=== PATIENT | female | born 1960 | race Two or more races ===

== ENCOUNTER 2024-07-02 18:27 | Inpatient (IN) | payer MEDICARE, MEDICAID, SELFPAY ==
--- NOTE | 2024-07-02 19:08 | EDNOTE_ITS ---
Altered Mental Status RME/HPI General Chief Complaint: Weakness Stated Complaint: WEAKNESS Time Seen by Provider: 07/02/24 19:08 Arrival date/time: 07/02/24 18:27 RME / HPI RME / HPI narrative: This section includes all my notes and documentations, including HPI, PE, and ED course. Kevon Ferrera MD HPI: 64 y/o female with Hx of Hypertension, Rheumatoid Arthritis, and Diabetes Mellitus Type 2 presents to ED [facility] from home c/o altered mental status. Per EMS, patient was found outside her apartment complex in [place] by neighbors who called for help due to no responsiveness. EMS reports blood sugar of 442 mg/dL and fever or 102F. Can't obtain history from the patient due to AMS. ROS: Can't obtain from the patient due to AMS. Physical Exam: General: No responsiveness. Eyes: EOMI. PERRL. ENT: No signs of head trauma. Neck: Supple. No tenderness. Heart: RRR. Lungs: No respiratory distress. Good air movement. No rhonchi, wheezing, rales. Chest: No tenderness. Abdomen: Soft and nontender. Back: No tenderness. Legs: No clubbing, cyanosis, edema. Skin: Warm and dry. Neuro: Difficult assessment due to AMS. I reviewed EMS notes. I reviewed all diagnostic test results. My interpretation of the EKG is: Sinus rhythm (71 bpm) with nonspecific ST-T changes. My interpretation of the chest x-ray is NAD. My review of the cervical spine CT report is no gross cervical fracture. My review of the chest/abdomen CT report is NAD. My review of the head/brain CT report is negative for acute hemorrhage, mass effect or midline shift. Blood tests and urine tests remarkable for hypokalemia and hypomagnesemia and UTI. At this point, diagnoses include AMS, UTI, fever, hypokalemia, and hypomagnesemia. Treatment here included Zofran, Toradol, Insulin, IV fluid, Rocephin, Magnesium Sulfate, Potassium Chloride. No significant improvement noted. I discussed the case with our hospitalist. About the presentation and exam and diagnostics and treatments here. And need of further care in the hospital. Will accept the patient. Kevon Ferrera MD Related Data Home Medications ?Medication ?Instructions ?Recorded ?Confirmed UNKNOWN MEDS ##0 12/10/12 Allergies Allergy/AdvReac Type Severity Reaction Status Date / Time NKA* Allergy Uncoded 12/10/12 15:19 Review of Systems Review of Systems ROS Unobtainable: unobtainable due to mental status Past Medical History Past Medical History CARDIAC: Positive Cardiac Disorders and Hypertension MUSCULOSKELETAL: Positive Rheumatoid Arthritis ENDOCRINE: Positive Endocrine Disorders and Diabetes Mellitus Type 2 Social History SMOKING STATUS: Current every day smoker ED Exam Narrative Physical exam: Refer to HPI above Course Course Course Narrative: CXR is ordered for determining the etiology of shortness of breath. Quality Measures none Orders Category Date Time Status Admit to Inpatient Status Routine Admission 07/02/24 23:12 Active Bedside COVID-19 Antigen Test NOW Care 07/02/24 19:09 Active Bedside Influenza A&B Antigen Test NOW Care 07/02/24 19:09 Completed COVID-19 Screening Questionnaire NOW Care 07/02/24 23:15 Active Decision to Admit X1 Care 07/02/24 23:15 Active EKG (ED ONLY) *Do not use* NOW Care 07/02/24 19:11 Completed Saline [Insert IV] NOW Care 07/02/24 19:09 Active Straight [In and Out Catheter] X1 Care 07/02/24 19:[address] cervical spine wo con Stat Exams 07/02/24 19:[address] chest abdomen pelvis wo Stat Exams 07/02/24 19:[address] head/brain wo con Stat Exams 07/02/24 19:11 Completed EKG (ED Only) Stat Exams 07/02/24 19:11 Draft XR chest 1V portable Stat Exams 07/02/24 19:11 Completed ABG [Arterial Blood Gas] Stat Lab 07/02/24 22:21 Completed Acetaminophen Stat Lab 07/02/24 20:46 Completed Alcohol, Blood Medical Stat Lab 07/02/24 20:46 Completed Ammonia Stat Lab 07/02/24 19:50 Completed Amylase Stat Lab 07/02/24 20:46 Completed BNP [B-Type Natriuretic Peptide] Stat Lab 07/02/24 22:48 Received Beta Hydroxybutyrate Stat Lab 07/02/24 20:46 Completed Bilirubin,Direct Stat Lab 07/02/24 20:46 Completed Blood Culture (Lab) Stat Lab 07/02/24 22:48 Received CBC Stat Lab 07/02/24 19:50 Completed CK [Creatine Kinase] Stat Lab 07/02/24 20:46 Completed CMP [Comprehensive Metabolic Panel] Stat Lab 07/02/24 20:46 Completed CRP [C-Reactive Protein] Stat Lab 07/02/24 20:46 Completed Drug Screen,Urine Stat Lab 07/02/24 19:50 Completed ESR [Sed Rate (ESR)] Stat Lab 07/02/24 19:50 Completed Free T4 (Free Thyroxine) Stat Lab 07/02/24 20:46 Completed Hemoglobin A1C [Glycohemoglobin w (eAG)] Stat Lab 07/02/24 19:50 Completed Lactate (Lactic Acid) Stat Lab 07/02/24 19:50 Completed Lipase Stat Lab 07/02/24 20:46 Completed Magnesium Stat Lab 07/02/24 20:46 Completed PT [Prothrombin Time with INR] Stat Lab 07/02/24 20:46 Completed PTT [Partial Thromboplastin Time] Stat Lab 07/02/24 20:46 Completed Procalcitonin Stat Lab 07/02/24 20:46 Completed TSH [Thyroid Stimulating Hormone] Stat Lab 07/02/24 20:46 Completed Troponin I Stat Lab 07/02/24 20:46 Completed UA, C/S IF [Urinalysis, C/S if Indicated] Stat Lab 07/02/24 19:50 Completed Urine Culture Stat Lab 07/02/24 19:50 Received Acetaminophen Ivpb [Ofirmev Inj] Med 07/02/24 19:09 Discontinued 1,000 mg in 100 ml IV X1 Insulin Regular Med 07/02/24 19:09 Discontinued 10 unit IV X1 ONE Insulin Regular Med 07/02/24 19:57 Discontinued 5 unit IV X1 ONE KCL 10% Liq UDC 15 ML Med 07/02/24 22:22 Discontinued 40 meq PO X1 ONE Ketorolac Inj [Toradol Inj] Med 07/02/24 19:09 Discontinued 30 mg IVP X1 ONE Magnesium Sulfate 2 GM Ivpb [Magnesium Sulfate Ivpb] Med 07/02/24 22:22 Active 2 gm in 50 ml IV X1 Ondansetron Inj [Zofran Inj] Med 07/02/24 19:09 Discontinued 4 mg IV X1 ONE POTASSIUM CHL 10 mEq IVPB [Kcl Ivpb] Med 07/02/24 22:23 Active 10 meq in 100 ml IV X1 Sodium Chloride 0.9% 1000 ml [Ns] 1,000 ml Med 07/02/24 23:15 Ordered IV 100 mls/hr Sodium Chloride 0.9% 1000 ml [Ns] 1,000 ml Med 07/02/24 19:09 Discontinued IV 999 mls/hr Sodium Chloride 0.9% 1000 ml [Ns] 1,000 ml Med 07/02/24 22:58 Active IV 999 mls/hr cefTRIAXone/D5w 1gm IV premix [Rocephin/D5w 1gm IV Med 07/03/24 09:00 Ordered premix] 1 gm in 50 ml IV QDAY cefTRIAXone/D5w 1gm IV premix [Rocephin/D5w 1gm IV Med 07/02/24 19:14 Discontinued premix] 1 gm in 50 ml IV X1 Vital Signs Vital signs: Vital Signs Temperature 99.6 F 07/02/24 19:35 Pulse Rate 78 07/02/24 19:35 Respiratory Rate 20 07/02/24 19:35 Blood Pressure 157/87 H 07/02/24 19:35 Pulse Oximetry (%) 97 07/02/24 19:35 Oxygen Delivery Method Room Air 07/02/24 19:35 Altered Mental Status MDM Narrative MDM Narrative:: Scribe Attestation: IMaritza, am scribing for and in the presence of Dr. Ferrera. Provider Notation: Although this document has been carefully reviewed, there may still be some phonetic and other typographical errors.? These errors are purely grammatical due to imperfections in the software program and should not be construed in any way to? compromise the substance of the patient's medical care during this visit. 64 y/o female with Hx of Hypertension, Rheumatoid Arthritis, and Diabetes Mellitus Type 2 presents to ED [facility] from home c/o altered mental status and lethargy. Patient data External records reviewed:: [facility] previous records (No prior ED records available for review.) and EMS form Clinical information provided by:: EMS Social determinants that could affect healthcare access:: none Patient has the following chronic illnesses:: Hypertension, Rheumatoid Arthritis, Diabetes Mellitus Type 2 How is presenting disease/condition affected by chronic disease/condition?: exacerbated by Evaluation data The following diagnostics were reviewed and interpreted by me:: lab results, radiology exam(s) and EKG tracing(s) (My interpretation of the EKG is: Sinus rhythm (71 bpm) with nonspecific ST-T changes. Kevon Ferrera MD) Lab and/or radiology exams considered but not ordered:: None Interpretation Summary: I reviewed all diagnostic test results. My interpretation of the EKG is: Sinus rhythm (71 bpm) with nonspecific ST-T changes. My interpretation of the chest x-ray is NAD. My review of the cervical spine CT report is no gross cervical fracture. My review of the chest/abdomen CT report is NAD. My review of the head/brain CT report is negative for acute hemorrhage, mass effect or midline shift. Blood tests and urine tests remarkable for hypokalemia and hypomagnesemia and UTI. Medications / Prescriptions Medications or Prescriptions considered but not ordered:: None Medication administrations:: Medication Administration History Magnesium Sulfate (Magnesium Sulfate Ivpb) 2 gm in 50 mls @ 25 mls/hr IV X1 ONE Stop: 07/03/24 00:21 Last Admin: 07/02/24 22:37 Dose: 25 mls/hr Documented By: CCT Potassium Chloride (Kcl Ivpb) 10 meq in 100 mls @ 100 mls/hr IV X1 ONE Stop: 07/02/24 23:22 Last Admin: 07/02/24 22:38 Dose: 100 mls/hr Documented By: CCT Sodium Chloride (Ns) 1,000 mls @ 999 mls/hr IV .Q1H1M ONE Stop: 07/02/24 23:58 Ceftriaxone Sodium/Dextrose (Rocephin/D5w 1gm Iv Premix) 1 gm in 50 mls @ 100 mls/hr IV QDAY ALBERTO Stop: 07/10/24 08:59 Sodium Chloride (Ns) 1,000 mls @ 100 mls/hr IV .Q10H ALBERTO Stop: 08/01/24 23:14 Discontinued Medications Acetaminophen (Ofirmev Inj) 1,000 mg in 100 mls @ 250 mls/hr IV X1 ONE Stop: 07/02/24 19:32 Last Infusion: 07/02/24 20:30 Dose: Infused Documented By: Admin: 07/02/24 20:07 Dose: 250 mls/hr Documented By: CCT Sodium Chloride (Ns) 1,000 mls @ 999 mls/hr IV .Q1H1M ONE Stop: 07/02/24 20:09 Last Infusion: 07/02/24 21:32 Dose: Infused Documented By: Admin: 07/02/24 20:08 Dose: 999 mls/hr Documented By: CCT Ceftriaxone Sodium/Dextrose (Rocephin/D5w 1gm Iv Premix) 1 gm in 50 mls @ 100 mls/hr IV X1 ONE Stop: 07/02/24 19:43 Last Infusion: 07/02/24 20:40 Dose: Infused Documented By: Admin: 07/02/24 20:06 Dose: 100 mls/hr Documented By: CCT Insulin Human Regular (Insulin Hum Regular 1 Unit/0.01 Ml (Per Unit)) 10 unit IV X1 ONE Stop: 07/02/24 19:10 Last Admin: 07/02/24 20:53 Dose: Not Given Documented By: CCT Non-Admin Reason: Cancelled by Provider Insulin Human Regular (Insulin Hum Regular 1 Unit/0.01 Ml (Per Unit)) 5 unit IV X1 ONE Stop: 07/02/24 19:58 Last Admin: 07/02/24 20:09 Dose: 5 unit Documented By: CCT Co-signed By: [facility] Ketorolac Tromethamine (Ketorolac Inj 30 Mg/Ml Vial) 30 mg IVP X1 ONE Stop: 07/02/24 19:10 Last Admin: 07/02/24 20:07 Dose: 30 mg Documented By: CCT Ondansetron HCl (Ondansetron Inj 2 Mg/Ml Inj 2 Ml) 4 mg IV X1 ONE; Protocol Stop: 07/02/24 19:10 Last Admin: 07/02/24 20:07 Dose: 4 mg Documented By: CCT Potassium Chloride (Potassium Chloride 10% 20 Meq/15 Ml Udc) 40 meq PO X1 ONE Stop: 07/02/24 22:23 Last Admin: 07/02/24 22:37 Dose: 40 meq Documented By: CCT Treatment from ca here included Zofran, Toradol, Insulin, IV fluid, Rocephin, Magnesium Sulfate, Potassium Chloride. Consultations Consultation(s) initiated? (list below): Yes Consultation #1 (Physician, Specialty, Details): I discussed the case with our hospitalist. About the presentation and exam and diagnostics and treatments here. And need of further care in the hospital. Will accept the patient. Time: 23:00 Diagnosis Differential diagnosis altered mental status: alcoholic intoxication, altered mental status, delirium, dementia, hypoglycemia, hyponatremia, subarachnoid hemorrhage, sepsis and other (UTI vs Sepsis vs Pyelonephritis vs Cystitis) Most likely diagnosis given after review of the tests above:: AMS, UTI, fever, hypokalemia, and hypomagnesemia Admission Indicated Admission indicated?: indicated Explain why admission is indicated or not indicated:: AMS, UTI, fever, hypokalemia, and hypomagnesemia Admission Request Was there a request for admission?: No Disposition Plan Disposition Plan: Admit Discharge Plan Plan Patient Disposition: Admit Acute Care w/in Hospital Prescriptions/Referrals Prescriptions/Med Rec: No Action UNKNOWN MEDS Qty: 0 Referrals: No Primary/Family,Physician [Primary Care Provider] - In 1 week Problem List Clinical Impression: AMS (altered mental status), UTI (urinary tract infection), Fever, Hypokalemia, Hypomagnesemia, Methamphetamine use, Marijuana use Patient/Caregiver Discharge Instructions Print Language: Lithuanian Stand Alone Forms: Emi Award Info., Patient Portal Info Letter
--- NOTE | 2024-07-02 19:11 | XR_ITS ---
Examination: CT chest, without intravenous contrast. CT abdomen, without intravenous contrast. CT pelvis, without intravenous contrast. 2-D sagittal and coronal reconstructions. 3-D reconstructions. Date and time of exam:July 02, 2024 2117 hours INDICATIONS: Patient fell today with injury to the chest and abdomen, chest pain and abdomen pain CTDI vol (mgy) 6.1 DLP (MGycm)380 Technique: Multiple CT images, 3.0 mm slice thickness, obtained chest, abdomen, pelvis, with the high-resolution 64 slice scanner.. Sagittal and coronal 2-D reconstructions are obtained. 3-D reconstructions Low dose protocols were performed. One or more of the following dose reduction techniques were used; automated exposure control, adjustment of the mA and/or KV according to patient size, use of iterative reconstruction technique. Findings: Thoracic aorta pulmonary arteries appear intact on this noncontrast study No hemopericardium No pneumothorax pulmonary contusion or hemothorax The manubria of the body of the sternum intact Chronic compressions T12 T7 No acute thoracic fracture Ribs appear intact No liver splenic or renal laceration Gallstones Abdominal aorta is intact No free blood in the abdomen Negative for pneumoperitoneum Atrophic uterus Urinary bladder intact Hips the bones of the pelvis lumbar vertebral bodies intact IMPRESSION: Thoracic aorta pulmonary arteries intact No hemopericardium, pneumothorax pulmonary contusion or hemothorax No abdominal parenchymal laceration No free blood in the abdomen or pelvis Abdominal aorta intact No acute fractures
--- NOTE | 2024-07-02 19:11 | EKG_ITS ---
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
--- NOTE | 2024-07-02 19:11 | XR_ITS ---
Examination: CT brain head without contrast. 2-D sagittal coronal reconstructions Date and time of exam:July 02, 2024 2113 hours INDICATIONS: Patient fell today with injury to the head, head pain and altered mental status CTDI: vol (mGy):45.9 DLP: (mGycm):9.5 Technique: Multiple CT axial sections of the brain have been obtained, 5 mm slice thickness. Contrast has not been administered. 2-D sagittal, coronal reconstructions have been obtained Low dose protocols were performed. One or more of the following dose reduction techniques were used; automated exposure control, adjustment of the mA and/or KV according to patient size, use of iterative reconstruction technique. Findings: No significant ventricular enlargement. Intra-axial or extra-axial hemorrhage density is not seen. No mass effect or midline shift Basal cisterns are not remarkable. Fourth ventricle is midline. Cranial vault intact. Impression: Negative for acute hemorrhage, mass effect or midline shift
--- NOTE | 2024-07-02 19:11 | XR_ITS ---
Examination: CT cervical spine without contrast 2-D sagittal reconstructions 2-D coronal reconstructions 3-D reconstructions. Exam date and time:July 02, 2024 2113 hours INDICATIONS: Patient fell today with injury to the neck, neck pain CTDI:vol (mGy) 6.92 DLP: (mGycm) 147 Technique: Multiple 2 mm axial sections of the cervical spine have been obtained. The coronal and sagittal reconstructions have been obtained. 3-D reconstructions have been obtained. Low dose protocols were performed. One or more of the following dose reduction techniques were used; automated exposure control, adjustment of the mA and/or KV according to patient size, use of iterative reconstruction technique. Findings: Study is significantly limited by continual patient motion No gross cervical fracture Adequate alignment cervical vertebral bodies IMPRESSION: Study is significantly limited by continual patient motion No gross cervical fracture
--- NOTE | 2024-07-02 19:11 | XR_ITS ---
Examination: AP chest single view TECHNIQUE: Portable upright AP chest single view Standing time: July 02, 2024 1936 hours INDICATION: Shortness of breath today. FINDINGS: Normal heart size Lungs are clear. The osseous structures are intact IMPRESSION: No active disease
[2024-07-02 19:35] VITALS: BP 157/87; PULSE 70; PULSE 78; RESP 20; TEMP 37.6; O2SAT 96; O2SAT 97
[2024-07-02] MEDS: cefTRIAXone/D5w 1gm IV premix 1 GM/50 ML BAG IV (20:06)
[2024-07-02 20:07] VITALS: TEMP 37.6
[2024-07-02 20:07] LABS: Lactate (Lactic Acid) 1.5 mMol/L (0.4-2.0)
[2024-07-02] MEDS: ACETAMINOPHEN IVPB 1,000 MG/100 ML VIAL 250 MG IV (20:07)
[2024-07-02] MEDS: KETOROLAC INJ 30 MG/ML VIAL IVP (20:07)
[2024-07-02] MEDS: ONDANSETRON INJ 2 MG/ML INJ 2 ML 4 MG IV (20:07)
[2024-07-02 20:08] LABS: Basophils # (Auto) 0.1 Thou/mm3 (0.0-0.2); Basophils % (Auto) 1 % (0-2.5); Eosinophils # (Auto) 0.1 Thou/mm3 (0.0-0.5); Eosinophils % (Auto) 1 % (0-10); Hematocrit 33.8 % (36.0-46.0); Hemoglobin 12.2 g/dL (12.0-16.0); Immature Granulocytes % (Auto) 1 % (0-0); Lymphocytes # (Auto) 2.4 Thou/mm3 (1.0-4.8); Lymphocytes % (Auto) 21 % (10-50); Mean Corpuscular HGB Conc 36.1 g/dl (31.0-37.0); Mean Corpuscular Hemoglobin 31.9 pg (25.0-35.0); Mean Corpuscular Volume 89 fL (80-100); Monocytes # (Auto) 0.7 Thou/mm3 (0.0-0.8); Monocytes % (Auto) 6 % (0-12); Neutrophils # (Auto) 8.3 Thou/mm3 (1.8-7.7); Neutrophils % (Auto) 71 % (37-80); Nucleated Red Blood Cell % 0 /100 WBC (0); Platelet Count 288 Thou/mm3 (140-440); RDW Standard Deviation 42.9 fL (36.4-46.3); Red Blood Count 3.82 Miln/mm3 (4.00-5.20); White Blood Count 11.8 Thou/mm3 (3.6-11.0)
[2024-07-02] MEDS: SODIUM CHLORIDE 0.9% 1000 ML 1,000 ML 999 ML IV ×2 (20:08→23:58)
[2024-07-02 20:09] LABS: Collection Type, Urine Clean Catch
[2024-07-02] MEDS: INSULIN HUM REGULAR 1 UNIT/0.01 ML (PER UNIT) 5 UNIT IV (20:09)
[2024-07-02 20:18] LABS: Bacteria,Urine 1+; Bilirubin,Urine Negative (Negative); Blood,Urine 1+ (Negative); Clarity,Urine Turbid (Clear/Hazy); Color,Urine Yellow (Lt Yel-Yel); Glucose, Urine 4+ (Negative); Ketones,Urine Negative (Negative); Leukocyte Esterase,Urine Positive (Negative); Nitrite,Urine Negative (Negative); Protein,Urine 1+ (Neg - Trace); RBC,Urine 22 /hpf (0-3); Specific Gravity,Urine 1.032 (1.001-1.035); Squamous Epithelial Cell,Urine 9 /hpf (0-5); Urobilinogen,Urine Negative mg/dL (0.0-1.0); WBC,Urine 86 /hpf (0-5)
[2024-07-02 20:28] LABS: Ammonia 22 uMol/L (11-32)
[2024-07-02 20:29] LABS: Culture Indicated,Urine Yes
[2024-07-02 20:30] LABS: Sed Rate (ESR) 99 mm/hr (0-30)
[2024-07-02 21:07] VITALS: TEMP 36.4
[2024-07-02 21:36] LABS: Beta Hydroxybutyrate 0.3 mmol/L (<0.6)
[2024-07-02 21:40] VITALS: BP 108/66; PULSE 70; RESP 17; TEMP 36.4; O2SAT 96
[2024-07-02 21:55] LABS: INR 1.2 (0.9-1.3); Partial Thromboplastin Time 27.5 Seconds (22.0-36.0); Prothrombin Time 12.6 Seconds (9.0-12.2)
[2024-07-02 22:01] LABS: Amphetamine/Methamp Scrn,U Positive (Negative); Barbiturate Screen,Urine Negative (Negative); Benzodiazepines Screen,Urine Negative (Negative); Benzoylecgonine Screen, Ur Negative (Negative); Fentanyl Screen,Urine Negative (Negative); Opiate Screen,Urine Negative (Negative); THC Screen,Urine Positive (Negative)
[2024-07-02 22:13] LABS: Glucose Estimated Average 355 mg/dL (80-131); Hemoglobin A1C > 14.0 % Hgb (4.8-6.0)
[2024-07-02 22:13] LABS: Acetaminophen 32.5 mcg/mL (10.0-20.0); Alanine Aminotransferase 15 U/L (10-49); Albumin, Serum 2.5 gm/dL (3.4-4.8); Albumin/Globulin Ratio 0.7 (1.2-2.2); Alcohol, Blood Medical < 3.0 mg/dL (0-10.0); Alkaline Phosphatase 197 U/L (46-116); Amylase 50 U/L (30-118); Anion Gap 5 (7-16); Aspartate Amino Transferase 29 U/L (0-34); BUN/Creatinine Ratio 19 Ratio (12-20); Bilirubin,Direct 0.2 mg/dL (0.0-0.3); Bilirubin,Total 0.4 mg/dL (0.3-1.2); Blood Urea Nitrogen 19 mg/dL (9-23); C-Reactive Protein 1.2 mg/dL (0.0-0.9); Calcium 7.2 mg/dL (8.3-10.6); Calcium (Corrected) 8.4 mg/dL (8.5-10.1); Carbon Dioxide 27.5 mMol/L (20.0-31.0); Chloride 103 mMol/L (98-107); Creatine Kinase 76 U/L (34-171); Free T4 (Free Thyroxine) 0.79 ng/dL (0.89-1.76); Globulin 3.6 gm/dL (2.3-3.5); Glucose 323 mg/dL (74-106); Lipase 23 U/L (12-53); Magnesium 1.4 mg/dL (1.6-2.6); Osmolality,Calculated 284 (275-295); Potassium 3.2 mMol/L (3.4-5.1); Sodium 135 mMol/L (136-145); Thyroid Stimulating Hormone 5.14 uIU/mL (0.55-4.78); Total Protein 6.1 gm/dL (5.7-8.2); Troponin I < 0.020 ng/mL (0.0-0.045); eGFR > 60 See Note
[2024-07-02 22:22] VITALS: BP 101/63; PULSE 62; RESP 17; TEMP 36.3; O2SAT 96
[2024-07-02 22:26] LABS: Base Excess 4 (-3-3); HCO3 30 mEq/L (20-26); Inspired Oxygen, FIO2 21 %; O2 Saturation 97 % (91-98); PCO2 47 mmHg (32.0-48.0); PO2 82 mmHg (83-108); pH, Arterial 7.41 (7.35-7.45)
[2024-07-02 22:28] LABS: Allen Test Performed/OK; Puncture Site Right Radial
[2024-07-02] MEDS: POTASSIUM CHLORIDE 10% 20 MEQ/15 ML UDC 40 MEQ PO (22:37)
[2024-07-02] MEDS: Magnesium Sulfate 2 GM Ivpb 2 GM/50 ML BAG IV (22:37)
[2024-07-02] MEDS: POTASSIUM CHL 10 mEq IVPB 10 MEQ/100 ML BAG 100 MEQ IV (22:38)
[2024-07-02 23:26] LABS: B-Type Natriuretic Peptide 64 pg/mL (0-100)
--- NOTE | 2024-07-02 23:33 | PD.EVENT ---
Documentation for date of: 07/02/24 Event Note Event Note: A 64-year-old female presented to the ER with the chief complaint of altered mental status. The patient described experiencing weakness earlier in the afternoon while walking home near her apartment. She attributed it to heat exposure and subsequently lost consciousness. She was found unresponsive outside her apartment complex by neighbors, who called emergency services. She also c/o cough (persistent for 1?2 weeks, partially responsive to [id number] medication), mild dysuria (burning with urination), and generalized weakness. The patient denied chest pain, shortness of breath, fever, or recent trauma. EMS reported a fever of 102?F and a blood glucose of 442 mg/dL at the scene. The patient has a history of DM, hypertension, arthritis, and hepatitis C. She reports taking seven medications but could only recall Gabapentin and Lisinopril. Social history includes smoking (half pack per day), no alcohol use, and recreational marijuana use. She is independent with ADLs, performs her own shopping and cooking, and walks as her primary means of transportation. She lives alone and receives disability support. No prior surgeries were reported. In the ER, vital signs were recorded as temp 99.6?F, HR 78 bpm, RR 20, and BP 157/87 mmHg. Labs revealed WBC 11.8, Hb 12.2, Plt 288, Na 135, K 3.2, BUN 19, Cr 1.0, glucose 323, Mg 1.4, CRP 1.2, procalcitonin 0.6, TSH 5.14, and free T4 0.79. UA was turbid with RBC 22 and WBC 86. CXR showed no active disease. CT head was negative for acute hemorrhage, mass effect, or midline shift. CT cervical spine showed no gross cervical fracture. Due to her living situation and electrolyte abnormalities, the patient was admitted for further evaluation and treatment. #Acute Encephalopathy Assessment: Altered mental status, found unresponsive, recent heat exposure, hyperglycemia (glucose 442 at scene), mild leukocytosis (WBC 11.8), normal CT head Plan: - Maintain hydration with IV fluids - Correct electrolyte abnormalities (K 3.2, Mg 1.4) - Treat UTI - Trend glucose and monitor for resolution of symptoms as metabolic parameters normalize #Urinary Tract Infection Assessment: Dysuria, turbid urine, UA with WBC 86, RBC 22, afebrile on admission but febrile in field (102?F) Plan: - Initiate empiric antibiotics (ceftriaxone), adjust per culture results - Send urine culture and sensitivity - Ensure adequate hydration #Diabetes Mellitus Assessment: Glucose 442 at scene, 323 on admission, history of DM Plan: - Initiate insulin sliding scale - Monitor FS glucose before meals and bedtime - Goal: preprandial glucose <140 mg/dL, random <180 mg/dL #Electrolyte Abnormalities Assessment: Hypokalemia (K 3.2), hypomagnesemia (Mg 1.4), likely due to poor intake/dehydration Plan: - Replete potassium and magnesium per protocol - Monitor BMP and Mg AM #Chronic Hepatitis C Assessment: History of hepatitis C, no acute hepatic decompensation noted Plan: - Outpatient follow-up #Hypertension Assessment: Known HTN, BP on admission 157/87 mmHg Plan: - Continue home meds #Tobacco Use Disorder Assessment: Active smoker (? pack/day) Plan: - Nicotine replacement therapy - Outpatient follow-up for cessation support
--- NOTE | 2024-07-02 23:59 | PD.RESHP ---
Documentation for date of: 07/02/24 HPI History of Present Illness Chief complaint: I passed out History of present illness: Nya Valle is 63 yr female with PMH of insulin-dependent type 2 diabetes, hypertension, rheumatoid arthritis who presented to ED via ambulance after neighbors found patient down. EMS arrived on scene and upon arrival patient blood sugar was 400, temperature 102. Now at bedside, patient is alert and oriented x 3. States that she was walking outside her apartment located in [place] when she started feeling faint and passed out. Patient lives alone with her daughter coming to visit and help occasionally. 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 Has has no issues with ADLs. Patient is also endorsing dysuria since past 1 week along with weakness. Denies any fevers, shortness of breath, chest pain. No diarrhea. States that she checks her blood sugars at home which range in 200?300s. Has poor diet with high carb intake and drinks 4 cans of Sprite every other day. In ED, BP 157/87, heart rate 78, RR 20, afebrile temp 99.6. Glucose 422 on admission, leukocytosis 11.8, hypokalemia 3.2, sodium 135, BUN 19, creatinine 1.0 , Hb 12.2, Plt 288, Mg 1.4, CRP 1.2, procalcitonin 0.6, TSH 5.14, and free T4 0.79. UA was positive for LE with WBC 86. CXR showed no active disease. CT head was negative for acute hemorrhage, mass effect, or midline shift. CT cervical spine showed no gross cervical fracture. Patient will be admitted for management of acute encephalopathy, sepsis secondary to UTI. PMH: As noted above PSH: FamHx: parents . Mother had history of HTN and diabetes. Social: Patient lives alone in an apartment in [place], unemployed. Daughter comes throughout the week to help. Patient denies any drinking. Endorses marijuana use, methamphetamine use with last use yesterday. 10-year smoking history with half a pack per day. Meds: Lisinopril, gabapentin, insulin glargine 20 units twice daily Review of Systems Review of Systems Systems Reviewed: All systems reviewed, normal except as documented Exam Vital Signs Temp Pulse Resp BP Pulse Ox O2 Del Method 97.3 F 62 17 101/63 96 Room Air 07/02/24 22:22 07/02/24 22:22 07/02/24 22:22 07/02/24 22:22 07/02/24 22:22 07/02/24 22:22 Narrative Exam General: Elderly female, somnolent but arousable, no acute distress, cooperative HEENT: NCAT, No JVD noted. Mucosa dry, poor oral hygiene. Pupils are equal and reactive to light bilaterally Cardiovascular: Normal S1 and S2. Regular rate and rhythm. Respiratory: Lungs are clear to auscultation bilaterally. No wheezing or crackles heard. Abdomen: Soft, nontender, not distended, normal bowel sounds. Skin: Warm to touch, dry, no rashes noted Musculoskeletal: No gross injuries. Able to move all 4 extremities. No pitting edema, +1 pedal pulses b/l, onychomycosis, Neuro: Alert and oriented x3. No focal neuro deficits. Psych: Normal affect and mood Results: Labs 07/02/24 19:50 07/02/24 20:46 Labs: Short CBC 07/02/24 Range/Units 19:50 WBC 11.8 H (3.6-11.0) Thou/mm3 Hgb 12.2 (12.0-16.0) g/dL Hct 33.8 L (36.0-46.0) % Plt Count 288 (140-440) Thou/mm3 BMP 07/02/24 20:46 Sodium 135 L Potassium 3.2 L Chloride 103 Carbon Dioxide 27.5 BUN 19 Creatinine 1.0 Glucose 323 H Calcium 7.2 L Cardiac Enzymes 07/02/24 Range/Units 20:46 Total Creatine Kinase 76 (34-171) U/L Troponin I < 0.020 (0.0-0.045) ng/mL Liver Function 07/02/24 Range/Units 20:46 Total Bilirubin 0.4 (0.3-1.2) mg/dL Direct Bilirubin 0.2 (0.0-0.3) mg/dL AST 29 (0-34) U/L ALT 15 (10-49) U/L Alkaline Phosphatase 197 H (46-116) U/L Albumin 2.5 L (3.4-4.8) gm/dL Urine 07/02/24 Range/Units 19:50 Urine Color Yellow (Lt Yel-Yel) Urine Clarity Turbid A (Clear/Hazy) Urine pH 6.0 (5.0-7.0) Ur Specific Bevier 1.032 (1.001-1.035) Urine Protein 1+ A (Neg - Trace) Urine Glucose (UA) 4+ A (Negative) ABG Interpretation ABG results: 07/02/24 22:21 ABG pH 7.41 ABG pCO2 47 ABG pO2 82 L ABG HCO3 30 H ABG O2 Saturation 97 ABG Base Excess 4 H Quality Measures Quality Measures none Advance care planning discussed with:: patient Medications Home Medications and Allergies Home Medications ?Medication ?Instructions ?Recorded ?Confirmed ?Type UNKNOWN MEDS ##0 12/10/12 History baclofen 10 mg tablet 10 mg PO QDAY 07/03/24 07/03/24 History cetirizine 10 mg tablet 10 mg PO QDAY 07/03/24 07/03/24 History gabapentin 600 mg tablet 600 mg PO BID 07/03/24 07/03/24 History lisinopril 5 mg tablet 5 mg PO QDAY 07/03/24 07/03/24 History omeprazole 20 mg capsule,delayed 20 mg PO QDAY 07/03/24 07/03/24 History release Allergies Allergy/AdvReac Type Severity Reaction Status Date / Time NKA* Allergy Uncoded 12/10/12 15:19 Visit Medications Acetaminophen (Acetaminophen 325 Mg Tablet) 650 mg PO Q6H PRN PRN Reason: Fever >100.3 or pain Stop: 08/01/24 23:54 Dextrose (Dextrose 50%-Water Inj 50 Ml Syringe) 25 ml IV Q15MIN PRN PRN Reason: BG 50-70 responsive npo pt Stop: 08/01/24 23:57 Dextrose (Dextrose 50%-Water Inj 50 Ml Syringe) 50 ml IV Q15MIN PRN PRN Reason: BG <50 OR BG <70 & pt unresponsive Stop: 08/01/24 23:57 Enoxaparin Sodium (Enoxaparin Sod Inj 40 Mg/0.4 Ml Syringe) 40 mg SC QDAY ALBERTO Stop: 07/17/24 08:59 Glucagon (Glucagon Inj 1 Mg Vial) 1 mg IM Q15MIN PRN PRN Reason: BG <70, and no IV access Magnesium Sulfate (Magnesium Sulfate Ivpb) 2 gm in 50 mls @ 25 mls/hr IV X1 ONE Stop: 07/03/24 00:21 Last Admin: 07/02/24 22:37 Dose: 25 mls/hr Ceftriaxone Sodium/Dextrose (Rocephin/D5w 1gm Iv Premix) 1 gm in 50 mls @ 100 mls/hr IV QDAY [facility] Stop: 07/10/24 08:59 Sodium Chloride (Ns) 1,000 mls @ 100 mls/hr IV .Q10H ALBERTO Stop: 08/01/24 23:14 Insulin Human Lispro (Insulin Lispro (Admelog) 1 Unit/0.01 Ml Unit) 0 unit SC AC ALBERTO; Protocol Stop: 08/02/24 07:29 Ondansetron HCl (Ondansetron Inj 2 Mg/Ml Inj 2 Ml) 4 mg IV Q6H PRN; Protocol PRN Reason: NAUSEA OR VOMITING Stop: 08/01/24 23:54 Sennosides (Senna Tablet) 1 tab PO QDAY PRN; Protocol PRN Reason: constipation Stop: 08/01/24 23:54 Discontinued Medications Acetaminophen (Ofirmev Inj) 1,000 mg in 100 mls @ 250 mls/hr IV X1 ONE Stop: 07/02/24 19:32 Last Infusion: 07/02/24 20:30 Dose: Infused Sodium Chloride (Ns) 1,000 mls @ 999 mls/hr IV .Q1H1M ONE Stop: 07/02/24 20:09 Last Infusion: 07/02/24 21:32 Dose: Infused Ceftriaxone Sodium/Dextrose (Rocephin/D5w 1gm Iv Premix) 1 gm in 50 mls @ 100 mls/hr IV X1 ONE Stop: 07/02/24 19:43 Last Infusion: 07/02/24 20:40 Dose: Infused Potassium Chloride (Kcl Ivpb) 10 meq in 100 mls @ 100 mls/hr IV X1 ONE Stop: 07/02/24 23:22 Last Infusion: 07/02/24 23:45 Dose: Infused Sodium Chloride (Ns) 1,000 mls @ 999 mls/hr IV .Q1H1M ONE Stop: 07/02/24 23:58 Last Admin: 07/02/24 23:58 Dose: 999 mls/hr Insulin Human Regular (Insulin Hum Regular 1 Unit/0.01 Ml (Per Unit)) 10 unit IV X1 ONE Stop: 07/02/24 19:10 Last Admin: 07/02/24 20:53 Dose: Not Given Insulin Human Regular (Insulin Hum Regular 1 Unit/0.01 Ml (Per Unit)) 5 unit IV X1 ONE Stop: 07/02/24 19:58 Last Admin: 07/02/24 20:09 Dose: 5 unit Ketorolac Tromethamine (Ketorolac Inj 30 Mg/Ml Vial) 30 mg IVP X1 ONE Stop: 07/02/24 19:10 Last Admin: 07/02/24 20:07 Dose: 30 mg Ondansetron HCl (Ondansetron Inj 2 Mg/Ml Inj 2 Ml) 4 mg IV X1 ONE; Protocol Stop: 07/02/24 19:10 Last Admin: 07/02/24 20:07 Dose: 4 mg Potassium Chloride (Potassium Chloride 10% 20 Meq/15 Ml Udc) 40 meq PO X1 ONE Stop: 07/02/24 22:23 Last Admin: 07/02/24 22:37 Dose: 40 meq Assessment & Plan Plan Nya Valle is 63 yr female with PMH of insulin-dependent type 2 diabetes, hypertension, rheumatoid arthritis who presented to ED via ambulance after neighbors found patient down. EMS arrived on scene and upon arrival patient blood sugar was 400, temperature 102. Patient will be admitted for management of acute encephalopathy, sepsis secondary to UTI. #Acute encephalopathy Ddx: Polysubstance drug use, heat exposure, infection, metabolic Patient has history of methamphetamine use with most recent use yesterday, has been walking outside as she does not drive, was found to have UTI on admission, blood sugars were elevated 422. #Sepsis 2/2 UTI Patient endorses dysuria and cloudy urine since past 1 week. Mild leukocytosis on CBC 11.8, EMS reported temperature of 102, lactic acid 1.5, CRP 1.2, elevated Pro-Alton 0.6. SIRS 2/4. Sepsis due to UTI with acute sepsis-related organ dysfunction as evidence by acute encephalopathy. - Received 2 L bolus NS + 1 g ceftriaxone x 1 while in ED - Continue maintenance fluids - Urine culture pending - Blood culture pending - IV ceftriaxone 1 g daily #Electrolyte abnormalities #Hypokalemia #Hypomagnesemia Potassium 3.2, magnesium 1.4 on admission. Patient was given 40 mEq PO +10 mEq IV while in ED. Patient also received 2 g magnesium x 1. - Replete as needed - Daily Magnesium, CMP #Hypothyroidism TSH 5.14, T40.79. - Follow-up outpatient # Insulin-dependent type 2 diabetes, poorly controlled On admission initial glucose 422. No previous A1c on file. Patient takes 20 units twice daily glargine for diabetes at home. Patient received 15 units of regular insulin while in the ED. A1c on this admission 07/03/2024 > 14. - Held home medications - Bedside blood glucose checks ACHS - Insulin lispro sliding scale - Carb consistent low diet - Diabetes education #Hx Hypertension BP on admission 157/87. Patient states that she uses lisinopril 5 mg daily at home Plan: - Continue home meds #Polysubstance drug disorder #Tobacco use Patient has active methamphetamine use for past 10 years. Recent use yesterday, also smokes marijuana daily. - manager clinical services consult - Customer Technical Services Manager on smoking cessation Health maintenance: Dispo: medsurg UTI FEN: low carb DVT prophylaxis: Lovenox CODE STATUS: Full code The patient's management plan was discussed with my attending physician Dr. Atkinson. Elvira Young, PGY-1 Attending Provider Attestation/Addendum Pt was evaluated and plan formulated together with the housestaff team. I have reviewed the residents note above and agree with most of its content. Please refer to the residents note for additional details.
[2024-07-03] VITALS (10 sets, daily range): BP systolic 100–139; BP diastolic 61–77; PULSE 53–67; RESP 12–100; TEMP 36.1–36.7; O2SAT 96–98
[2024-07-03] MEDS: SODIUM CHLORIDE 0.9% 1000 ML 1,000 ML 100 ML IV ×3 (00:45→22:10)
--- NOTE | 2024-07-03 01:02 | PC.NURSE ---
Report given to SKYE Murphy Med-surg
[2024-07-03 06:04] LABS: Basophils # (Auto) 0.1 Thou/mm3 (0.0-0.2); Basophils % (Auto) 1 % (0-2.5); Eosinophils # (Auto) 0.4 Thou/mm3 (0.0-0.5); Eosinophils % (Auto) 3 % (0-10); Hematocrit 32.7 % (36.0-46.0); Hemoglobin 11.2 g/dL (12.0-16.0); Immature Granulocytes % (Auto) 1 % (0-0); Immature Granulocytes Auto 0.09 Thou/mm3 (0.00-0.00); Lymphocytes # (Auto) 3.7 Thou/mm3 (1.0-4.8); Lymphocytes % (Auto) 31 % (10-50); Mean Corpuscular HGB Conc 34.3 g/dl (31.0-37.0); Mean Corpuscular Hemoglobin 32.2 pg (25.0-35.0); Mean Corpuscular Volume 94 fL (80-100); Monocytes # (Auto) 0.8 Thou/mm3 (0.0-0.8); Monocytes % (Auto) 7 % (0-12); Neutrophils # (Auto) 6.7 Thou/mm3 (1.8-7.7); Neutrophils % (Auto) 57 % (37-80); Nucleated Red Blood Cell % 0 /100 WBC (0); Platelet Count 242 Thou/mm3 (140-440); Red Blood Count 3.48 Miln/mm3 (4.00-5.20); White Blood Count 11.7 Thou/mm3 (3.6-11.0)
[2024-07-03 06:25] LABS: Alanine Aminotransferase 15 U/L (10-49); Albumin, Serum 2.5 gm/dL (3.4-4.8); Albumin/Globulin Ratio 0.7 (1.2-2.2); Alkaline Phosphatase 196 U/L (46-116); Anion Gap 3 (7-16); Aspartate Amino Transferase 29 U/L (0-34); BUN/Creatinine Ratio 21 Ratio (12-20); Bilirubin,Total 0.3 mg/dL (0.3-1.2); Blood Urea Nitrogen 21 mg/dL (9-23); Calcium 7.5 mg/dL (8.3-10.6); Calcium (Corrected) 8.7 mg/dL (8.5-10.1); Carbon Dioxide 27.3 mMol/L (20.0-31.0); Chloride 108 mMol/L (98-107); Globulin 3.6 gm/dL (2.3-3.5); Glucose 132 mg/dL (74-106); Magnesium 2.2 mg/dL (1.6-2.6); Osmolality,Calculated 280 (275-295); Phosphorous 2.8 mg/dL (2.4-5.1); Potassium 4.8 mMol/L (3.4-5.1); Sodium 138 mMol/L (136-145); Total Protein 6.1 gm/dL (5.7-8.2); eGFR > 60 See Note
[2024-07-03] MEDS: INSULIN LISPRO (AdmeLOG) 1 UNIT/0.01 ML UNIT SC ×3 (07:49→17:11)
[2024-07-03] MEDS: cefTRIAXone/D5w 1gm IV premix 1 GM/50 ML BAG IV (09:19)
[2024-07-03] MEDS: Lisinopril 2.5 MG TABLET 5 MG PO (09:19)
[2024-07-03] MEDS: ENOXAPARIN SOD INJ 40 MG/0.4 ML SYRINGE SC (09:20)
--- NOTE | 2024-07-03 11:53 | ESPR_ITS ---
Documentation for date of: 07/03/24 Subjective Subjective Interval history: No acute overnight events noted. Seen and examined at bedside and patient states she feels much better today. She is alert and oriented x 3 and no longer experiencing dysuria. Leukocytosis stable, hemoglobin stable, K improved from 3.2 to 4.8, morning glucose 132, A1c 14%. Will continue with ceftriaxone and follow-up cultures. Anticipate discharge within the next 24 to 48 hours. Exam Vital Signs Temp Pulse Resp BP Pulse Ox O2 Del Method 97.1 F 65 12 106/68 97 Room Air 07/03/24 08:00 07/03/24 09:19 07/03/24 08:00 07/03/24 09:19 07/03/24 08:00 07/03/24 08:00 Narrative Exam General: AOx3, appears older than stated age, no acute distress, able to speak full sentences HEENT: NC/AT, mucous membranes moist, bilateral sclera anicteric Cardiovascular: regular rate and rhythm, S1/S2 present, no murmurs appreciated Pulmonary: clear to auscultation bilaterally, no rales/rhonchi/wheezes Abdominal: soft, non-tender, non-distended, no rebound/guarding, normal bowel sounds present Musculoskeletal: normal ROM, no peripheral edema Skin: warm and dry, intact, no rashes Neuro: CN II-XII intact, no focal deficits Objective Labs 07/03/24 04:32 07/03/24 04:32 Labs: Laboratory Results - last 24 hr 07/02/24 07/02/24 07/02/24 19:50 20:46 22:21 WBC 11.8 H RBC 3.82 L Hgb 12.2 Hct 33.8 L MCV 89 MCH 31.9 MCHC 36.1 RDW Std Deviation 42.9 Plt Count 288 Neut % (Auto) 71 Lymph % (Auto) 21 Kendall % (Auto) 6 Eos % (Auto) 1 Baso % (Auto) 1 Neut # (Auto) 8.3 H Lymph # (Auto) 2.4 Kendall # (Auto) 0.7 Eos # (Auto) 0.1 Baso # (Auto) 0.1 Immature Gran # (Auto) 0.10 H Absolute Nucleated RBC 0.00 Immature Gran % 1 H Nucleated RBC % 0 ESR 99 H PT 12.6 H INR 1.2 APTT 27.5 Puncture Site Right Radial ABG pH 7.41 ABG pCO2 47 ABG pO2 82 L ABG HCO3 30 H ABG O2 Saturation 97 ABG Base Excess 4 H FiO2 21 Sodium 135 L Potassium 3.2 L Chloride 103 Carbon Dioxide 27.5 Anion Gap 5 L BUN 19 Creatinine 1.0 Estim Creat Clear Calc Not Performed. eGFR > 60 BUN/Creatinine Ratio [address] Glu mg/dL 355 H Hemoglobin A1c > 14.0 H Calculated Osmolality 284 Lactic Acid 1.5 Calcium 7.2 L Corrected Calcium 8.4 L Phosphorus Magnesium 1.4 L Total Bilirubin 0.4 Direct Bilirubin 0.2 AST 29 ALT 15 Alkaline Phosphatase 197 H Ammonia 22 Total Creatine Kinase 76 Troponin I < 0.020 C-Reactive Prot, Quant 1.2 H B-Natriuretic Peptide Total Protein 6.1 Albumin 2.5 L Globulin 3.6 H Albumin/Globulin Ratio 0.7 L Amylase 50 Lipase 23 Beta-Hydroxybutyrate/Acetoacetate 0.3 Procalcitonin 0.60 H TSH 5.14 H Free T4 0.79 L Ur Collection Type Clean Catch Urine Color Yellow Urine Clarity Turbid A Urine pH 6.0 Ur Specific Girard 1.032 Urine Protein 1+ A Urine Glucose (UA) 4+ A Urine Ketones Negative Urine Blood 1+ A Urine Nitrite Negative Urine Bilirubin Negative Urine Urobilinogen (Auto) Negative Ur Leukocyte Esterase Positive Urine RBC 22 H Urine WBC 86 H Ur Squamous Epith Cells 9 H Urine Bacteria 1+ A Ur Culture Indicated? Yes Urine Opiates Screen Negative Urine Fentanyl Screen Negative Acetaminophen 32.5 H Ur Barbiturates Screen Negative U Amphetamin/Meth Scrn Positive A U Benzodiazepines Scrn Negative U Cocaine Metab Screen Negative U Marijuana (THC) Screen Positive A Ethyl Alcohol < 3.0 07/02/24 07/03/24 22:48 04:32 WBC 11.7 H RBC 3.48 L Hgb 11.2 L Hct 32.7 L MCV 94 MCH 32.2 MCHC 34.3 RDW Std Deviation 46.0 Plt Count 242 D Neut % (Auto) 57 Lymph % (Auto) 31 Kendall % (Auto) 7 Eos % (Auto) 3 Baso % (Auto) 1 Neut # (Auto) 6.7 Lymph # (Auto) 3.7 Kendall # (Auto) 0.8 Eos # (Auto) 0.4 Baso # (Auto) 0.1 Immature Gran # (Auto) 0.09 H Absolute Nucleated RBC 0.00 Immature Gran % 1 H Nucleated RBC % 0 ESR PT INR APTT Puncture Site ABG pH ABG pCO2 ABG pO2 ABG HCO3 ABG O2 Saturation ABG Base Excess FiO2 Sodium 138 Potassium 4.8 D Chloride 108 H Carbon Dioxide 27.3 Anion Gap 3 L BUN 21 Creatinine 1.0 Estim Creat Clear Calc Not Performed. eGFR > 60 BUN/Creatinine Ratio 21 H Glucose [address] Glu mg/dL Hemoglobin A1c Calculated Osmolality 280 Lactic Acid Calcium 7.5 L Corrected Calcium 8.7 Phosphorus 2.8 Magnesium 2.2 Total Bilirubin 0.3 Direct Bilirubin AST 29 ALT 15 Alkaline Phosphatase 196 H Ammonia Total Creatine Kinase Troponin I C-Reactive Prot, Quant B-Natriuretic Peptide 64 Total Protein 6.1 Albumin 2.5 L Globulin 3.6 H Albumin/Globulin Ratio 0.7 L Amylase Lipase Beta-Hydroxybutyrate/Acetoacetate Procalcitonin TSH Free T4 Ur Collection Type Urine Color Urine Clarity Urine pH Ur Specific Girard Urine Protein Urine Glucose (UA) Urine Ketones Urine Blood Urine Nitrite Urine Bilirubin Urine Urobilinogen (Auto) Ur Leukocyte Esterase Urine RBC Urine WBC Ur Squamous Epith Cells Urine Bacteria Ur Culture Indicated? Urine Opiates Screen Urine Fentanyl Screen Acetaminophen Ur Barbiturates Screen U Amphetamin/Meth Scrn U Benzodiazepines Scrn U Cocaine Metab Screen U Marijuana (THC) Screen Ethyl Alcohol ABG Interpretation ABG results: 07/02/24 22:21 ABG pH 7.41 ABG pCO2 47 ABG pO2 82 L ABG HCO3 30 H ABG O2 Saturation 97 ABG Base Excess 4 H Quality Measures Quality Measures none Advance care planning discussed with:: patient and child Assessment & Plan Assessment Current Active Medications: Generic Name Dose Route Start Last Admin Trade Name Freq PRN Reason Stop Dose Admin Acetaminophen 650 mg 07/02/24 23:55 Acetaminophen 325 Mg Tablet PO 08/01/24 23:54 Q6H PRN Fever >100.3 or pain Dextrose 25 ml 07/02/24 23:58 Dextrose 50%-Water Inj 50 Ml Syringe IV 08/01/24 23:57 Q15MIN PRN BG 50-70 responsive npo pt Dextrose 50 ml 07/02/24 23:58 Dextrose 50%-Water Inj 50 Ml Syringe IV 08/01/24 23:57 Q15MIN PRN BG <50 OR BG <70 & pt unresponsive Enoxaparin Sodium 40 mg 07/03/24 09:00 07/03/24 09:20 Enoxaparin Sod Inj 40 Mg/0.4 Ml Syringe SC 07/17/24 08:59 40 mg QDAY ALBERTO Administration Glucagon 1 mg 07/02/24 23:58 Glucagon Inj 1 Mg Vial IM Q15MIN PRN BG <70, and no IV access Ceftriaxone Sodium/Dextrose 1 gm in 50 mls @ 100 mls/hr 07/03/24 09:00 07/03/24 09:19 Rocephin/D5w 1gm Iv Premix IV 07/10/24 08:59 100 mls/hr QDAY ALBERTO Administration Sodium Chloride 1,000 mls @ 100 mls/hr 07/02/24 23:15 07/03/24 00:45 Ns IV 08/01/24 23:14 100 mls/hr .Q10H ALBERTO Administration Insulin Human Lispro 0 unit 07/03/24 07:30 07/03/24 07:49 Insulin Lispro (Admelog) 1 Unit/0.01 Ml Unit SC 08/02/24 07:29 2 unit AC ALBERTO Administration Protocol Ondansetron HCl 4 mg 07/02/24 23:55 Ondansetron Inj 2 Mg/Ml Inj 2 Ml IV 08/01/24 23:54 Q6H PRN NAUSEA OR VOMITING Protocol Sennosides 1 tab 07/02/24 23:55 Senna Tablet PO 08/01/24 23:54 QDAY PRN constipation Protocol Plan Nya mcmanus is a 63-year-old female with a past medical history of of insulin-dependent type 2 diabetes, hypertension, and rheumatoid arthritis who after neighbors found patient down outside of her house. Admitted for management of acute encephalopathy and urinary tract infection. #Acute encephalopathy, likely secondary to heat exhaustion, resolved Found outside after walking to the grocery store. She lives alone and does not drive and was found outside after reaching 97 ?F. Received IV fluids and mental status is back to baseline on following day. #Sepsis secondary to urinary tract infection with acute encephalopathy and lactic acidosis, improving Endorses dysuria and cloudy urine x1 week. Mild leukocytosis on CBC 11.8, EMS reported temperature of 102, lactic acid 1.5, CRP 1.2, elevated Pro-Alton 0.6. Sepsis due to UTI with acute sepsis-related organ dysfunction as evidence by acute encephalopathy. Received 2 L bolus NS + 1 g ceftriaxone x 1 while in ED. ? Ceftriaxone 1 g IV daily ? Follow-up urine cultures ? Follow-up blood cultures #Insulin-dependent type 2 diabetes, uncontrolled On admission initial glucose 422. Home insulin regimen of 20 units glargine twice daily. Received 15 units regular insulin in ED. A1c 07/03/2024 > 14% ? SSI ? Bedside blood glucose checks ACHS ? Carb consistent low diet #History of hypertension BP on admission 157/87. States that she uses lisinopril 5 mg daily at home. ? Continue lisinopril 5 mg daily #Polysubstance drug disorder #Tobacco use Patient has active methamphetamine use for past 10 years. Recent use yesterday, also smokes marijuana daily. ? business services analyst consult ? Lighting Technician on smoking cessation #Hypothyroidism TSH 5.14, free T4 0.79. ? Follow-up outpatient #Hypokalemia, resolved #Hypomagnesemia, resolved Hospital management: Disposition: pending urine culture and on IV antibiotics Fluids: not indicated Diet: carb consistent low Lines: PIV DVT prophylaxis: enoxaparin 40 mg SC GI prophylaxis: not indicated CODE STATUS: full code ----- Plan discussed with attending physician Dr. Dayami Natarajan MD PGY-1 Internal Medicine Attending Provider Attestation/Addendum I have discussed and was present for the essential components of the history, physical examination, diagnosis, and treatment plan with the resident. I agree with the patient's care as documented by the resident and amended herein by me. Jacoby Stock DO. Patient seen and evaluated this AM. Vital signs stable, patient afebrile overnight, significant labs include a WBC 11.7, A1c greater than 14, TSH 5.14 and low T4. Urinalysis was positive, patient presently being treated for UTI on ceftriaxone. Will continue to wait for blood and urine cultures. Patient states she feels well, possible DC tomorrow pending culture results and continued clinical improvement. Although this document has been carefully reviewed, there may still be some phonetic and other typographical errors. These errors are purely grammatical due to imperfections in the software program and should not be construed in any way to compromise the substance of the patient's medical care during this visit.
[2024-07-03] MEDS: ACETAMINOPHEN 325 MG TABLET 650 MG PO (11:58)
--- NOTE | 2024-07-03 15:24 | PC.SS ---
Nya Vlale is a 64-year-old female admitted to [facility] for Sepsis. SS conducted bedside contact with the patient to complete initial assessment and to discuss discharge planning.? Patient confirmed demographic information. Patient identifies her dtr (SS worker) Jessica Haynes [phone] as her surrogate decision maker. Pt resides at home alone, but dtr helps daily. Pt is independent with all ADLs, pt utilizes a walker for ambulation. Pt pharmacy of choice is [facility]. Pt will return home upon DC no further needs identified. SS will remain available for any additional needs. DM: Jessica Haynes [phone] DC plan: Home PCP: [facility] (needs PCP appointment)
--- NOTE | 2024-07-03 15:46 | PC.SS ---
Rounding: on IV ABX
[2024-07-03] MEDS: ONDANSETRON INJ 2 MG/ML INJ 2 ML 4 MG IV ×2 (16:50→22:56)
[2024-07-03] MEDS: MELATONIN 3 MG TABLET 6 MG PO (22:57)
[2024-07-04] VITALS: BP 149/87; PULSE 63; RESP 16; TEMP 36.3; O2SAT 99
[2024-07-04 04:00] VITALS: BP 159/77; PULSE 64; RESP 16; TEMP 36.2; O2SAT 95
[2024-07-04 06:46] LABS: Basophils # (Auto) 0.1 Thou/mm3 (0.0-0.2); Basophils % (Auto) 1 % (0-2.5); Eosinophils # (Auto) 0.3 Thou/mm3 (0.0-0.5); Eosinophils % (Auto) 3 % (0-10); Hematocrit 35.5 % (36.0-46.0); Immature Granulocytes % (Auto) 1 % (0-0); Immature Granulocytes Auto 0.09 Thou/mm3 (0.00-0.00); Lymphocytes # (Auto) 2.7 Thou/mm3 (1.0-4.8); Lymphocytes % (Auto) 28 % (10-50); Mean Corpuscular HGB Conc 33.8 g/dl (31.0-37.0); Mean Corpuscular Hemoglobin 32.3 pg (25.0-35.0); Mean Corpuscular Volume 95 fL (80-100); Monocytes # (Auto) 0.6 Thou/mm3 (0.0-0.8); Monocytes % (Auto) 6 % (0-12); Neutrophils % (Auto) 61 % (37-80); Nucleated Red Blood Cell % 0 /100 WBC (0); Platelet Count 267 Thou/mm3 (140-440); RDW Standard Deviation 46.5 fL (36.4-46.3); Red Blood Count 3.72 Miln/mm3 (4.00-5.20); White Blood Count 9.8 Thou/mm3 (3.6-11.0)
[2024-07-04 07:00] LABS: Alanine Aminotransferase 19 U/L (10-49); Albumin, Serum 2.8 gm/dL (3.4-4.8); Albumin/Globulin Ratio 0.7 (1.2-2.2); Alkaline Phosphatase 236 U/L (46-116); Anion Gap 3 (7-16); Aspartate Amino Transferase 54 U/L (0-34); BUN/Creatinine Ratio 21 Ratio (12-20); Bilirubin,Total 0.3 mg/dL (0.3-1.2); Blood Urea Nitrogen 17 mg/dL (9-23); Calcium 7.9 mg/dL (8.3-10.6); Calcium (Corrected) 8.9 mg/dL (8.5-10.1); Carbon Dioxide 26.5 mMol/L (20.0-31.0); Chloride 102 mMol/L (98-107); Creatinine (Component) 0.8 mg/dL (0.6-1.3); Globulin 3.9 gm/dL (2.3-3.5); Glucose 135 mg/dL (74-106); Osmolality,Calculated 266 (275-295); Potassium 4.9 mMol/L (3.4-5.1); Sodium 131 mMol/L (136-145); Total Protein 6.7 gm/dL (5.7-8.2); eGFR > 60 See Note
[2024-07-04 07:45] VITALS: BP 133/78; PULSE 73; RESP 16; TEMP 36; O2SAT 97
[2024-07-04 08:46] VITALS: BP 133/78; PULSE 73
[2024-07-04] MEDS: ENOXAPARIN SOD INJ 40 MG/0.4 ML SYRINGE SC (08:46)
[2024-07-04] MEDS: Lisinopril 2.5 MG TABLET 5 MG PO (08:46)
[2024-07-04] MEDS: cefTRIAXone/D5w 1gm IV premix 1 GM/50 ML BAG IV (08:46)
[2024-07-04] MEDS: SODIUM CHLORIDE 0.9% 1000 ML 1,000 ML 100 ML IV (08:50)
--- NOTE | 2024-07-04 10:47 | PC.SS ---
SS follow up note; Pending Cultures, Patient is on IV ABX. Patient will discharge home when medically cleared.
[2024-07-04 12:00] VITALS: BP 151/87; PULSE 80; RESP 19; TEMP 36.7; O2SAT 97
[2024-07-04] MEDS: INSULIN LISPRO (AdmeLOG) 1 UNIT/0.01 ML UNIT SC (12:38)
--- NOTE | 2024-07-04 15:32 | PD.RESDS ---
Planned Discharge Date 07/04/24 DS: Providers Provider Date of admission: 07/02/24 23:12 Primary care physician: Physician No Primary/Family Admitting Provider: David Atkinson MD Attending Provider on Admission: David Atkinson MD Attending Provider on DC: Anupam Stock DO Discharging Provider: Anupam Stock DO DS: Diagnosis Problem List Completed Was Problem List Reviewed/Reconciled?: Yes Hospital Course Hospital Course Hospital course: 63-year-old female with past medical history of IDDM, hypertension, and rheumatoid arthritis was admitted to the hospital on 07/02/2024 due to acute encephalopathy likely secondary to acute extraction versus UTI. In the ER patient came in with complaints of altered mental status and was found by the neighbors. Initially patient came in with hypertension and afebrile. Initial labs were relevant for leukocytosis (11.8), hypokalemia, hypomagnesemia, elevated CRP, and elevated procalcitonin. Patient's urine was also positive for bacteria. Initial imaging included cervical spine CT which was unremarkable, chest x-ray which no no active disease, chest/abdomen/pelvis CT which was unrevealing, and head CT which was unremarkable. Patient was started on Rocephin and urine cultures were ordered. Patient's encephalopathy resolved, the hospital stay and blood cultures remain negative in the first 24 hours. Patient CBC also downtrending and she did not spike any fevers and she was feeling back at her baseline. At this time patient was found to be stable enough to be discharged back home with p.o. antibiotics. Discharge plan: Follow up with primary care physician within 1 week upon discharge You have been started on an antibiotic, Macrobid (nitrofurantoin) 100mg twice a day for 5 more days Please continue taking all other home medications as prescribed Please come back to the ER if symptoms persist or worsen Problem list: #Acute encephalopathy, resolved #UTI #Lactic acidosis, resolved #Hx of IDDM #Hx of hypertension #Hx of polysubstance use #Tobacco use #Hypothyroidism #Hypokalemia, resolved #Hypomagnesemia, resolved Case disclosed with Attending Dr. Dayami Licona PGY1 Status at Discharge Overall status at discharge: patient is progressing back to baseline Time Spent with Patient Time attestation: Total time spent providing and/or coordinating discharge services:>35 min Time spent: Greater than 30 minutes Exam Vital Signs Temp Pulse Resp BP Pulse Ox O2 Del Method 98.0 F 80 19 151/87 H 97 Room Air 07/04/24 12:00 07/04/24 12:00 07/04/24 12:00 07/04/24 12:00 07/04/24 12:00 07/04/24 12:00 Narrative Exam General: A/O x3, no acute distress Eyes: PERRL, EOMI. Anicteric, vision grossly intact. Ears: No ear pain, no ear discharge, Hearing grossly intact. Nose: No nasal discharge. Mouth/Throat: Moist mucous membranes, missing dentation, no redness, no lesions. Neck: Neck supple, non-tender, no cervical lymphadenopathy. Lungs: Clear JONATHAN to auscultation and percussion, No accessory muscle use. Cardio: Normal S1/S2, regular rhythm, no murmurs, no JVD Abdomen: Soft, non-tender, no palpable masses, peristalsis present, no guarding or rebound. Extremities: Symmetrical, no significant deformities, no peripheral edema , non-tender, peripheral pulses presents. Skin: No rashes, no lesions, warm to touch. Neuro: No focal neurological deficits. motor and sensory intact Discharge Plan Plan Patient Disposition: HOME (Self Care) Care Plan Goals: Follow up with primary care physician within 1 week upon discharge You have been started on an antibiotic, Macrobid (nitrofurantoin) 100mg twice a day for 5 more days Please continue taking all other home medications as prescribed Please come back to the ER if symptoms persist or worsen Prescriptions/Referrals Prescriptions/Med Rec: New nitrofurantoin monohyd/m-cryst [Macrobid] 100 mg capsule 100 mg PO BID 5 Days Qty: 10 0RF Rx Instructions: must administer with a meal/food Continued gabapentin 600 mg tablet 600 mg PO BID lisinopril 5 mg tablet 5 mg PO QDAY omeprazole 20 mg capsule,delayed release(DR/EC) 20 mg PO QDAY cetirizine 10 mg tablet 10 mg PO QDAY baclofen 10 mg tablet 10 mg PO QDAY No Action UNKNOWN MEDS Qty: 0 Referrals: No Primary/Family,Physician [Primary Care Provider] - Patient/Caregiver Discharge Instructions Other Discharge Activity Instructions:: Follow up with primary care physician within 1 week upon discharge You have been started on an antibiotic, Macrobid (nitrofurantoin) 100mg twice a day for 5 more days Please continue taking all other home medications as prescribed Please come back to the ER if symptoms persist or worsen Education Materials: Urinary Tract Infections in Women, Understanding Urinary Tract ... Print Language: Japanese Stand Alone Forms: Emi Award Info., Patient Portal Info Letter Discharge Order Discharge Orders: Discharge (Routine); Ordered 07/04/24 Ordered By: Evangelist Licona Quality Discharge Quality Measures VTE prophylaxis MD Attestestation MD Attestation I have discussed and was present for the essential components of the discharge history, physical examination, diagnosis, and discharge treatment plan with the resident. I agree with the patient's discharge care as documented by the resident and amended herein by me. Jacoby Stock DO. The patient understood all discharge instructions, all questions were answered satisfactorily. The patient was instructed to return to the Emergency Department is symptoms worsened or persisted. Patient was stable, discharged on a short course of nitrofurantoin however we will still continue to follow with urine cultures.. Patient safe for discharge, significantly improved since time of admission and she felt subjectively much better. I strenuously counseled the patient on the need for methamphetamine cessation and she understood. She is also advised to follow-up with her primary care physician within 1 week of discharge for further evaluation, specifically for her A1c which was greater than 14, she definitely needs improved blood glucose control. Patient was stable, afebrile, tolerating p.o. intake and ambulatory at time of discharge home. Although this document has been carefully reviewed, there may still be some phonetic and other typographical errors. These errors are purely grammatical due to imperfections in the software program and should not be construed in any way to compromise the substance of the patient's medical care during this visit.
[2024-07-04 16:46] VITALS: PULSE 68; RESP 20; RESP 96
== END 2024-07-04 14:30 | disposition home or self-care (01) | DRG 689 ==
LOC: SERX 23:16 → SERHOLD 23:23 → S3SX 07-03 01:14
PROVIDERS: Admitting Provider Internal Medicine; Emergency Provider Emergency Medicine; Visit Provider Internal Medicine
DX: N39.0 Urinary tract infection, site not specified (principal); G92.8 Other toxic encephalopathy; E87.20 Acidosis, unspecified; E11.65 Type 2 diabetes mellitus with hyperglycemia; I10 Essential (primary) hypertension; M06.9 Rheumatoid arthritis, unspecified; R55 Syncope and collapse; E87.6 Hypokalemia; F15.90 Other stimulant use, unspecified, uncomplicated; E03.9 Hypothyroidism, unspecified; F17.210 Nicotine dependence, cigarettes, uncomplicated; B18.2 Chronic viral hepatitis C; Z56.0 Unemployment, unspecified; E83.42 Hypomagnesemia; B19.20 Unspecified viral hepatitis C without hepatic coma; E86.0 Dehydration; Z79.4 Long term (current) use of insulin; F12.90 Cannabis use, unspecified, uncomplicated; Z79.899 Other long term (current) drug therapy; T67.5XXA Heat exhaustion, unspecified, initial encounter; X30.XXXA Exposure to excessive natural heat, initial encounter
CPT/HCPCS: 36415; 36600; 70450; 71045; 71250; 72125; 74176; 80053; 80307; 80320; 80329; 81001; 82010; 82140; 82150; 82248; 82550; 82803; 83036; 83605; 83690; 83735; 83880; 84100; 84145; 84439; 84443; 84484; 85025; 85610; 85652; 85730; 86140; 87040; 87077; 87086; 87186; 87400; 87811; 93005; 96361; 96365; 96366; 96367; 96368; 99285; J0131; J0696; J1650; J1815; J1885; J2405; J3475; J3480; J7030; A9270; G0480

== ENCOUNTER 2024-11-19 11:55 | Emergency (ER) | payer MEDICARE, MEDICAID, SELFPAY ==
[2024-11-19] VITALS (7 sets, daily range): BP systolic 124–177; BP diastolic 69–97; PULSE 62–85; RESP 15–19; TEMP 36.8–37.1; O2SAT 95–99; BMI 20.5
--- NOTE | 2024-11-19 12:33 | PD.EDRME ---
Rapid Medical Screening Exam E Arrival date/time: 11/19/24 11:55 This is a 64-year-old female that comes into the emergency room with complaints of right abdominal/flank pain. patient denies trauma. Patient states no longer able to take care of herself. Patient states no longer does anymore. Patient uses a walker and is homeless. Patient has a history of high blood pressure and methamphetamine abuse. I have greeted and performed a focused initial assessment of this patient. Initial appropriate labs ordered at this time. A comprehensive ED assessment and evaluation of the patient and analysis of all test and completion of medical decision making process will be conducted by additional ED provider. Chief Complaint: Chest Pain Time Seen by Provider: 11/19/24 12:15 Vital signs: Vital Signs Temperature 98.2 F 11/19/24 12:12 Pulse Rate 85 11/19/24 12:12 Respiratory Rate 19 11/19/24 12:12 Blood Pressure 129/69 11/19/24 12:12 Pulse Oximetry (%) 98 11/19/24 12:12 Oxygen Delivery Method Room Air 11/19/24 12:12
[2024-11-19 13:37] LABS: Basophils # (Auto) 0.1 Thou/mm3 (0.0-0.2); Basophils % (Auto) 1 % (0-2.5); Eosinophils # (Auto) 0.1 Thou/mm3 (0.0-0.5); Eosinophils % (Auto) 1 % (0-10); Hematocrit 34.0 % (36.0-46.0); Hemoglobin 11.0 g/dL (12.0-16.0); Immature Granulocytes Auto 0.08 Thou/mm3 (0.00-0.00); Lymphocytes # (Auto) 1.7 Thou/mm3 (1.0-4.8); Lymphocytes % (Auto) 14 % (10-50); Mean Corpuscular HGB Conc 32.4 g/dl (31.0-37.0); Mean Corpuscular Hemoglobin 30.2 pg (25.0-35.0); Mean Corpuscular Volume 93 fL (80-100); Monocytes # (Auto) 0.8 Thou/mm3 (0.0-0.8); Monocytes % (Auto) 6 % (0-12); Neutrophils # (Auto) 9.4 Thou/mm3 (1.8-7.7); Neutrophils % (Auto) 78 % (37-80); Nucleated Red Blood Cell # 0.00 Thou/mm3 (0.00-0.00); Nucleated Red Blood Cell % 0 /100 WBC (0); Platelet Count 443 Thou/mm3 (140-440); RDW Standard Deviation 49.7 fL (36.4-46.3); Red Blood Count 3.64 Miln/mm3 (4.00-5.20); White Blood Count 12.1 Thou/mm3 (3.6-11.0)
--- NOTE | 2024-11-19 13:44 | PD.EDCHEST ---
ED Chest Pain RME/HPI General Chief Complaint: Chest Pain Stated Complaint: R RIB PAIN X1 DAY, SOB Time Seen by Provider: 11/19/24 12:15 Arrival date/time: 11/19/24 11:55 Limitations: no limitations RME / HPI RME / HPI narrative: 11/19/24 11:55 This is a 64-year-old female that comes into the emergency room with complaints of right abdominal/flank pain. patient denies trauma. Patient states no longer able to take care of herself. Patient states no longer does anymore. Patient uses a walker and is homeless. Patient has a history of high blood pressure and methamphetamine abuse. I have greeted and performed a focused initial assessment of this patient. Initial appropriate labs ordered at this time. A comprehensive ED assessment and evaluation of the patient and analysis of all test and completion of medical decision making process will be conducted by additional ED provider. DR. KINSEY MAIN ED EVALUATION: 64-year-old homeless female with a past medical history of diabetes mellitus, hypertension, and methamphetamine use presents to the Emergency Department stating she was sent by Alissa Melendez at [facility] for placement. Patient states she is here for placement because she is homeless. She reports chronic right rib pain managed with lidocaine patches but denies other acute complaints. She has an allergy to penicillins. Current medications include glipizide, lisinopril, Janumet, and metformin. Related Data Home Medications ?Medication ?Instructions ?Recorded ?Confirmed UNKNOWN MEDS ##0 12/10/12 baclofen 10 mg tablet 10 mg PO QDAY 07/03/24 07/03/24 cetirizine 10 mg tablet 10 mg PO QDAY 07/03/24 07/03/24 gabapentin 600 mg tablet 600 mg PO BID 07/03/24 07/03/24 lisinopril 5 mg tablet 5 mg PO QDAY 07/03/24 07/03/24 omeprazole 20 mg capsule,delayed 20 mg PO QDAY 07/03/24 07/03/24 release Allergies Allergy/AdvReac Type Severity Reaction Status Date / Time No Known Allergies Allergy Unverified 11/19/24 18:49 Review of Systems Review of Systems Systems Reviewed: All systems reviewed, normal except as documented Past Medical History Past Medical History CARDIAC: Positive Cardiac Disorders and Hypertension MUSCULOSKELETAL: Positive Rheumatoid Arthritis ENDOCRINE: Positive Endocrine Disorders and Diabetes Mellitus Type 2 Social History SMOKING STATUS: Light (< 1 pack/day) SUBSTANCE USE: does not use ALCOHOL: Never ED Exam General Limitations: Present no limitations General appearance: Present alert and other (looks chronically ill, frail, cachectic) Head Head exam: Present atraumatic, normocephalic and normal inspection Eye Eye exam: Present normal appearance, PERRL and EOMI ENT ENT exam: Present normal exam, normal oropharynx and mucous membranes moist Neck Neck exam: Present normal inspection, full ROM and trachea midline Chest Chest inspection: Present symmetric chest wall rise and other (tenderness of right rib area but no lesions noted); Absent rash Respiratory Respiratory exam: Present normal lung sounds bilaterally Cardiovascular Cardiovascular exam: Present regular rate, normal rhythm and normal heart sounds Abdominal Exam Abdominal exam: Present soft and normal bowel sounds Extremities Exam Extremities exam: Present normal inspection and full ROM Back Exam Back exam: Present normal inspection and full ROM Neurological Exam Neurological exam: Present alert, oriented X3, CN II-XII intact and other (nonfocal or neuro deficits ) Psychiatric Psychiatric exam: Present normal affect and normal mood Skin Skin exam: Present warm, dry, intact and normal color Course Quality Measures none Orders Category Date Time Status Consult Messenger Floorperson X1 Care 11/19/24 12:32 Completed EKG (ED ONLY) *Do not use* NOW Care 11/19/24 14:14 Completed Referral Physical Therapy Stat Cons 11/19/24 18:44 Active Diet Regular Diet 11/19/24 Dinner Active EKG (ED Only) Stat Exams 11/19/24 14:14 Draft XR ribs RT min 3V w CXR1V Stat Exams 11/19/24 14:14 Completed CBC Stat Lab 11/19/24 13:09 Completed Comprehensive Metabolic Panel Stat Lab 11/19/24 13:09 Completed Drug Screen,Urine Stat Lab 11/19/24 13:46 Completed Lipase Stat Lab 11/19/24 13:09 Completed Troponin I Stat Lab 11/19/24 13:09 Completed Urinalysis, C/S if Indicated Stat Lab 11/19/24 13:46 Completed Urine Culture Stat Lab 11/19/24 13:46 Received Vital Signs Vital signs: Vital Signs Temperature 98.2 F 11/19/24 12:12 Pulse Rate 85 11/19/24 12:12 Respiratory Rate 19 11/19/24 12:12 Blood Pressure 129/69 11/19/24 12:12 Pulse Oximetry (%) 98 11/19/24 12:12 Oxygen Delivery Method Room Air 11/19/24 12:12 Chest Pain MDM Narrative MDM Narrative:: Patient is a 64yo female that is in the ED with concerns for right rib pain, inability to care for herself and requesting SNF placement. VS and exam as listed. Concern for rib contusion, fracture ACS arrhythmia electrolyte abnormality among others. Patient endorses using methamphetamines earlier today. Ordered labs EKG chest x-ray. Offered medication for symptom relief. Labs without any acute hematologic or significant metabolic disturbance. Urinalysis is leukocyte positive, has 161 red blood cells, 498 white blood cells. Patient does endorse suprapubic discomfort and dysuria. Concern for urinary tract infection. Patient does not any allergies will provide antibiotics. Patient drug screen came back positive for methamphetamines and marijuana. X-ray of the chest and ribs unremarkable. Social work evaluated the patient, patient needs PT OT and her to qualify for SNF placement. PT OT ordered. At this time patient presented transition care over to oncoming provider. Patient is pending PT OT and possible SNF placement. Merle Waters am scribing for and in the presence of Dr. Kinsey. Patient data External records reviewed:: [facility] previous records Clinical information provided by:: patient Social determinants that could affect healthcare access:: substance use (methamphetamine) Patient has the following chronic illnesses:: Past medical history of diabetes mellitus, hypertension, and methamphetamine use. She has an allergy to penicillins. Current medications include glipizide, lisinopril, Janumet, and metformin. How is presenting disease/condition affected by chronic disease/condition?: uneffected by Evaluation data The following diagnostics were reviewed and interpreted by me:: lab results Lab and/or radiology exams considered but not ordered:: none Interpretation Summary: See MDM narrative above. Medications / Prescriptions Medications or Prescriptions considered but not ordered:: none Medication administrations:: see above if any Consultations Consultation(s) initiated? (list below): Yes Diagnosis Chest Pain Differential Diagnosis: other (Chronic rib pain, social placement need, and frailty/cachexia.) Most likely diagnosis given after review of the tests above:: Urinary tract infection Admission Indicated Admission indicated?: not indicated Admission Request Was there a request for admission?: No Disposition Plan Disposition Plan: other (specify) (Signed out) Discharge Plan Prescriptions/Referrals Prescriptions/Med Rec: No Action UNKNOWN MEDS Qty: 0 gabapentin 600 mg tablet 600 mg PO BID lisinopril 5 mg tablet 5 mg PO QDAY omeprazole 20 mg capsule,delayed release(DR/EC) 20 mg PO QDAY cetirizine 10 mg tablet 10 mg PO QDAY baclofen 10 mg tablet 10 mg PO QDAY Referrals: No Primary/Family,Physician [Primary Care Provider] - In 1 week Problem List Clinical Impression: UTI (urinary tract infection), Methamphetamine abuse, Homeless Patient/Caregiver Discharge Instructions Print Language: Irish
[2024-11-19 13:52] LABS: Alanine Aminotransferase < 7 U/L (10-49); Albumin, Serum 3.2 gm/dL (3.4-4.8); Albumin/Globulin Ratio 0.6 (1.2-2.2); Alkaline Phosphatase 215 U/L (46-116); Anion Gap 8 (7-16); Aspartate Amino Transferase 35 U/L (0-34); BUN/Creatinine Ratio 11 Ratio (12-20); Bilirubin,Total 0.9 mg/dL (0.3-1.2); Blood Urea Nitrogen 11 mg/dL (9-23); Calcium 8.3 mg/dL (8.3-10.6); Calcium (Corrected) 8.9 mg/dL (8.5-10.1); Carbon Dioxide 26.0 mMol/L (20.0-31.0); Chloride 99 mMol/L (98-107); Creatinine (Component) 1.0 mg/dL (0.6-1.3); Estimated Creatinine Clearance 34.2 mL/min (>60); Globulin 5.0 gm/dL (2.3-3.5); Glucose 188 mg/dL (74-106); Lipase 17 U/L (12-53); Osmolality,Calculated 270 (275-295); Potassium 3.5 mMol/L (3.4-5.1); Sodium 133 mMol/L (136-145); Total Protein 8.2 gm/dL (5.7-8.2); eGFR > 60 See Note
--- NOTE | 2024-11-19 14:14 | XR_ITS ---
Examination: Ribs, right, with PA chest, 5 views Technique: Chest PA, RIBS AP, RPO, LPO, AP coned lower ribs 5 views Exam date and time: November 19, 2024, 1418 hrs. Indications: Onset right-sided rib pain beginning 3 days ago, no trauma Findings: Normal heart size Ectatic enlarged thoracic aorta. No pneumothorax or pneumonia. No pleural disease. Bones of the shoulder, right humerus and ribs appear intact The rib films are underpenetrated Impression: No pneumothorax, pulmonary contusion or hemothorax No pneumonia identified. The ribs appear intact
--- NOTE | 2024-11-19 14:14 | EKG_ITS ---
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
[2024-11-19 14:16] LABS: Collection Type, Urine Voided; Squamous Epithelial Cell,Urine 0 /hpf (0-5)
[2024-11-19 14:56] LABS: Bacteria,Urine 4+; Bilirubin,Urine Negative (Negative); Blood,Urine 2+ (Negative); Glucose, Urine Negative (Negative); Ketones,Urine Negative (Negative); Leukocyte Esterase,Urine Positive (Negative); Nitrite,Urine Negative (Negative); PH,Urine 6.0 (5.0-7.0); Protein,Urine 2+ (Neg - Trace); Specific Gravity,Urine 1.017 (1.001-1.035); Urobilinogen,Urine 4.0 mg/dL (0.0-1.0)
[2024-11-19 15:03] LABS: Clarity,Urine Turbid (Clear/Hazy); Color,Urine Drk-Brown (Lt Yel-Yel); Culture Indicated,Urine Yes; RBC,Urine 161 /hpf (0-3)
[2024-11-19 15:04] LABS: Amorphous Crystals,Urine Present (Absent); Amphetamine/Methamp Scrn,U Positive (Negative); Barbiturate Screen,Urine Negative (Negative); Benzodiazepines Screen,Urine Negative (Negative); Benzoylecgonine Screen, Ur Negative (Negative); Fentanyl Screen,Urine Negative (Negative); Opiate Screen,Urine Negative (Negative); THC Screen,Urine Positive (Negative); WBC,Urine 498 /hpf (0-5)
[2024-11-19 15:36] LABS: Troponin I < 0.002 ng/mL (0.0-0.045)
--- NOTE | 2024-11-19 18:37 | PC.CC ---
Hand Buffer spoke to bedside nurse regarding Pt request for [facility] SNIF placement Hand Buffer engaged Pt bedside and role and reason for engagement was discussed. Pt reported she has a bed ready for her at [facility] and will like to get placement there. Hand Buffer reviewed Pt request with ED Provider Dr. Kinsey and discussed request for PT Eval - SNIF Placement. Dr. Kinsey agreed to submit request for PT Eval. Hand Buffer received telephone call from Pt sister Kelly [phone] who verified Pt will like to go to [facility] SNIF placement and have a contact at [facility] [phone].
--- NOTE | 2024-11-19 19:24 | PD.EDADDENDU ---
Emergency Room Addendum Addendum Narrative: 1800: Care assumed from Dr. Kinsey (emergency physician). Past medical, surgical, social and family history reviewed. Vitals and home medications reviewed. Results and treatment plan discussed. I will assume the care of the patient at this time and will follow the patient, pending PT OT and possible SNF placement. The following addendum documentation note is intended to reflect any pending information, findings, or radiology results not included in the patient?s initial chart by the previous shift scribe. Assumed care of patient pending placement in which illicit drugs were confiscated. Patient expresses chronic rib pain and requests pain medication. 06:00 - Care assumed by Dr. Kinsey (emergency physician). Past medical, surgical, social and family history reviewed. Vitals and home medications reviewed. Results and treatment plan discussed. They will assume the care of the patient at this time and will follow the patient, pending PT OT and possible SNF placement.
[2024-11-19] MEDS: KETOROLAC INJ 30 MG/ML VIAL IVP (19:58)
[2024-11-19] MEDS: cefTRIAXone/D5w 1gm IV premix 1 GM/50 ML BAG IV (20:01)
[2024-11-20] VITALS (10 sets, daily range): BP systolic 132–194; BP diastolic 74–91; PULSE 60–78; RESP 14–21; TEMP 36.4–37.5; O2SAT 96–99
--- NOTE | 2024-11-20 06:18 | PD.EDADDENDU ---
Emergency Room Addendum <Dariela Kinsey MD - Last Filed: 12/09/24 20:05> Addendum Narrative: Patient is a 64-year-old female that seen emergency department requesting placement into residential facility as she is no longer able to care for herself. Patient has a history of cirrhosis, heart failure. Patient has a urinary tract infection, is actively receiving treatment. She is hemodynamically stable not in distress medically cleared for PT OT evaluation for possible SNF placement. Of note patient was found to have methamphetamine and marijuana on her possession, and this was removed in the emergency department given to the police. <Merle Kalpesh - Last Filed: 11/20/24 16:53> Addendum Narrative: 0600: Care assumed from Dr. Lowery, the previous shift emergency physician. Past medical, surgical, social and family history reviewed. Vitals and home medications reviewed. I will assume the care of the patient at this time, pending possible SNF placement. Please refer to the emergency department record for history and examination from initial visit.? Patient is a 64-year-old female that seen emergency department requesting placement into residential facility as she is no longer able to care for herself. Patient has a history of cirrhosis, heart failure. Patient has a urinary tract infection, is actively receiving treatment. She is hemodynamically stable not in distress medically cleared for PT OT evaluation for possible SNF placement. Of note patient was found to have methamphetamine and marijuana on her possession, and this was removed in the emergency department given to the police. 1800: Patient was signed out to Dr. Lowery. Past medical, surgical, social and family history reviewed. Vitals and home medications reviewed. Results and treatment plan discussed. They will assume the care of the patient at this time and will follow the patient, pending SNF placement.
[2024-11-20] MEDS: cefTRIAXone/D5w 1gm IV premix 1 GM/50 ML BAG IV (11:59)
[2024-11-20] MEDS: HYDROcodone/APAP 5/325 TABLET 1 TAB PO (11:59)
--- NOTE | 2024-11-20 14:42 | PC.CC ---
ESCOBAR Stallings completed PASRR. SS sent an SNF referral through [facility]. Patient [facility]; pending insurance auth.
--- NOTE | 2024-11-20 19:05 | PD.EDADDENDU ---
Emergency Room Addendum Addendum Narrative: 1800: Care assumed from Dr. Kinsey (emergency physician). Past medical, surgical, social and family history reviewed. Vitals and home medications reviewed. Results and treatment plan discussed. I will assume the care of the patient at this time and will follow the patient, pending SNF placement. The following addendum documentation note is intended to reflect any pending information, findings, or radiology results not included in the patient?s initial chart by the previous shift scribe. Patient awaiting placement requesting additional pain medication for chronic pain syndrome. Notably hypertensive and treated with low-dose narcotics analgesics/anti-emetics with moderate improvement.
[2024-11-21] VITALS (8 sets, daily range): BP systolic 137–210; BP diastolic 74–108; PULSE 62–81; RESP 13–20; TEMP 36.4–36.9; O2SAT 95–97
[2024-11-21] MEDS: PROCHLORPERAZINE INJ 5 MG/ML VIAL 2 ML 2.5 MG IV (02:32)
[2024-11-21] MEDS: MORPHINE SULF INJ 4 MG/ML VIAL IVP (02:32)
--- NOTE | 2024-11-21 07:15 | PC.CC ---
Addendum entered by Azalia Munoz 11/21/24 15:13: 1511-ASW arranged transportation for pt to d/c to SNF [facility]. P/u ETA 1600. Addendum entered by Azalia Munoz 11/21/24 14:59: 1358-ASW attempted to arrange transportation via [employer], but pt insurance does not cover transportation. ASW obtained RHEA for this pt to d/c to SNF. Addendum entered by Azalia Munoz 11/21/24 14:21: 1430-ASW received a call from Jazmin from [facility] with the AUTH for this pt. AUTH is [id number]. . ASW will arrange transportation for pt to d/c to [facility] Addendum entered by Azalia Munoz 11/21/24 12:55: It should be known that Protective Signal Operations Supervisor Anoop requested the clinicals to be re-faxed to [phone] as the prior fax number that was requested to be faxed to will not get to him directly. ASW re-faxed the clinicals to the corrected number. Addendum entered by Azalia Munoz 11/21/24 12:49: 1238-ASW received a call from [phone] from [facility]- as he is the one of the rn case mgr on this case. Tato called to confirm the name of Demarcus Decker as in their system it comes up at [facility]. ASW clarified and Tato will call back with a possible acceptance once all paperwork has been reviewed. Addendum entered by Azalia Munoz 11/21/24 12:06: 1150-ASW received a call from Protective Signal Operations Supervisor Carolee Hodges who requested the following documentation: Discharge Order, PT eval., and ER provider/RN notes. ASW faxed these docs to [phone]. Once docs are accpeted and reviewed, Protective Signal Operations Supervisor Carolee will call back with either an acceptance/or denial. Addendum entered by Azalia Munoz 11/21/24 11:35: 1133-ASW contacted Mignon from [facility] and informed her of the correspondence between ASW and the managed medicare company. ASW informed Jazmin that once ASW received approval/denial, ASW will contact her. EOC. Addendum entered by Azalia Munoz 11/21/24 11:32: 1119-ASW contacted the managed medicare [phone] and it provided information needed for the pts AUTH. ASW spoke with Intake named Alfa who reported an RN will call back with f/u questions needed to for AUTH. As of this writing, ASW has not received a call back. Addendum entered by Azalia Munoz 11/21/24 10:54: 1038-ASW contacted [facility] [phone] as pt is requiring verification that pt is in acute care at the ER. However, ASW remained on hold for 20 minutes with no assistance. ASW will try again. Addendum entered by Azalia Munoz 11/21/24 09:20: 0919-PT was conducted on 11/20/24 and sent via [employer] to [employer]. ASW contacted Butch for AUTH and she is in the process of obtaining AUTH. Mignon will contact ASW for approval. Addendum entered by Azalia Munoz 11/21/24 09:05: 0905-ASW contacted [facility] PT to ask about when PT jules evaluate pt and she stated she is aware and will try to see this pt first. EOC. Addendum entered by Azalia Munoz 11/21/24 07:20: PASRR and request for SNF placement have been submitted vis [employer] by ADAM Stallings over the weekend. ASW will f/u with [facility] as pts preference [facility]. Original Note: 0715-Pt is requesting a SNF placement. Since pt has a managed medicare plan, pt will need a PT eval prior to SNF consideration.
--- NOTE | 2024-11-21 08:58 | PD.EDADDENDU ---
Emergency Room Addendum Addendum Narrative: 0600: Care assumed from Dr. Lowery, the previous shift emergency physician. Past medical, surgical, social and family history reviewed. Vitals and home medications reviewed. I will assume the care of the patient at this time, pending SNF placement. Please refer to the emergency department record for history and examination from initial visit.?The following addendum documentation note is intended to reflect any pending information, findings, or radiology results not included in the patient?s initial chart. 1330h: Upon reviewing the chart, it appears the patient also has a UTI. She received a dose of antibiotics on the 11/19 and 11/20. An additional dose of Rocephin will be administered today. Patient is still pending placement, which is expected to occur today. Patient was accepted for placement at [facility]. 1540h: EMS here to txfer the patient.
[2024-11-21] MEDS: ACETAMINOPHEN IVPB 1,000 MG/100 ML VIAL 250 MG IV (13:46)
[2024-11-21] MEDS: cefTRIAXone/D5w 1gm IV premix 1 GM/50 ML BAG IV (13:47)
--- NOTE | 2024-11-21 15:40 | PC.NURSE ---
attempted to call [facility] to give report three times no answer from there nurses.
== END 2024-11-21 15:31 | disposition skilled nursing facility (03) ==
PROVIDERS: Nurse Practitioner Family; Emergency Provider Emergency Medicine
DX: N39.0 Urinary tract infection, site not specified (principal); F15.10 Other stimulant abuse, uncomplicated; Z59.00 Homelessness unspecified; I10 Essential (primary) hypertension; F17.210 Nicotine dependence, cigarettes, uncomplicated; R54 Age-related physical debility; R64 Cachexia; Z68.20 Body mass index [BMI] 20.0-20.9, adult; Z75.1 Person awaiting admission to adequate facility elsewhere
CPT/HCPCS: 36415; 71101; 80053; 80307; 81001; 83690; 84484; 85025; 87077; 87086; 87186; 93005; 96365; 96366; 96375; 99284; J0131; J0696; J0780; J1885; J2270; A9270

== ENCOUNTER 2024-12-31 18:55 | Inpatient (IN) | payer MEDICARE, MEDICAID, SELFPAY ==
[2024-12-31] VITALS (8 sets, daily range): BP systolic 81–103; BP diastolic 51–67; PULSE 74–91; RESP 12–90; TEMP 36.7–37.6; O2SAT 95–100
--- NOTE | 2024-12-31 19:29 | EKG_ITS ---
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
--- NOTE | 2024-12-31 19:33 | XR_ITS ---
Examination: CT brain head without contrast. 2-D sagittal coronal reconstructions Date and time of exam: December 31, 20242028 hours INDICATIONS: Altered mental status today CTDI: vol (mGy): 41.2 DLP: (mGycm): 854 Technique: Multiple CT axial sections of the brain have been obtained, 5 mm slice thickness. Contrast has not been administered. 2-D sagittal, coronal reconstructions have been obtained Low dose protocols were performed. One or more of the following dose reduction techniques were used; automated exposure control, adjustment of the mA and/or KV according to patient size, use of iterative reconstruction technique. Findings: No significant ventricular enlargement. Intra-axial or extra-axial hemorrhage density is not seen. No mass effect or midline shift Basal cisterns are not remarkable. Fourth ventricle is midline. Cranial vault intact. Impression: Negative for acute hemorrhage, mass effect or midline shift
[2024-12-31] MEDS: SODIUM CHLORIDE 0.9% 1000 ML 1,000 ML 100 ML IV (19:45)
[2024-12-31] MEDS: DEXTROSE 50%-WATER INJ 50 ML SYRINGE IVP (19:46)
[2024-12-31 19:54] LABS: Base Excess -8 (-3-3); HCO3 18 mEq/L (20-26); Inspired Oxygen, FIO2 21 %; O2 Saturation 99 % (91-98); PCO2 33 mmHg (32.0-48.0); PO2 105 mmHg (83-108); pH, Arterial 7.33 (7.35-7.45)
[2024-12-31 19:58] LABS: Allen Test Performed/OK; Puncture Site Left Radial
--- NOTE | 2024-12-31 19:59 | PD.EDAMS ---
Altered Mental Status RME/HPI General Chief Complaint: Altered Mental Status Stated Complaint: AMS Time Seen by Provider: 12/31/24 19:29 Arrival date/time: 12/31/24 18:55 RME / HPI RME / HPI narrative: DR. CASTREJON MAIN ED EVALUATION: Severely debilitated, comfort care only patient presenting with failure to thrive. Children report GCS of basline 14, but Paramedics estimate 9 with poor PO intake for the last several days. Had previous cirrhosis, RA, Type II DM, and malnutrition. Vitals stable in field. Blood sugar in the field initially 155 mg/dL. Baseline orientation x4. PMH: Cirrhosis, Malnutrition, Hypertension, Rheumatoid Arthritis, Diabetes Mellitus Type 2, Recreational Drug Use, and Anxiety PSH: Non-contributory Allergies: Penicillin Social: detention, Prior Methamphetamine and Marijuana use Related Data Home Medications ?Medication ?Instructions ?Recorded ?Confirmed UNKNOWN MEDS ##0 12/10/12 baclofen 10 mg tablet 10 mg PO QDAY 07/03/24 07/03/24 cetirizine 10 mg tablet 10 mg PO QDAY 07/03/24 07/03/24 gabapentin 600 mg tablet 600 mg PO BID 07/03/24 07/03/24 lisinopril 5 mg tablet 5 mg PO QDAY 07/03/24 07/03/24 omeprazole 20 mg capsule,delayed 20 mg PO QDAY 07/03/24 07/03/24 release Allergies Allergy/AdvReac Type Severity Reaction Status Date / Time Penicillins Allergy Verified 11/19/24 19:56 Review of Systems Review of Systems Systems Reviewed: All systems reviewed, normal except as documented Past Medical History Past Medical History CARDIAC: Positive Cardiac Disorders and Hypertension MUSCULOSKELETAL: Positive Rheumatoid Arthritis ENDOCRINE: Positive Endocrine Disorders and Diabetes Mellitus Type 2 PSYCHO/SOCIAL: Positive Recreational Drug Use (METH, MARIJUANA) and Anxiety ED Exam Narrative Physical exam: GEN. APPEARANCE: The patient is hypersomnulant arouses to tactile and vocal stimuli, intermittently follows commands, appears cachexic and malnourished. VITALS: All vitals were reviewed and the pulse ox is 95%, which is normal according to my interpretation HEENT: Normocephalic, atraumatic and nontender. Pupils are equal and reactive. Oral mucosa is moist. NECK: Supple, nontender, no meningismus, no JVD. There is no thyromegaly and no lymphadenopathy. CHEST: Nontender on palpation no deformity and no crepitus. CARDIOVASCULAR: Heart regular rhythm, no murmur or gallop rub or extra beats. LUNGS: Clear to auscultation bilaterally with symmetrical chest rise. No laboring tachypnea or wheezing. No intercostal subcostal retraction. No rales and no rhonchi. ABDOMEN: Soft, no fluid wave, mild diffuse TTP, no guarding or rebound tenderness. There are no abnormal masses palpated. No pulsatile masses or bruits. Active and normal bowel sounds. EXTREMITIES: Normal inspection and palpation. No edema. No cyanosis. Patient is able to move all 4 extremities well SKIN: Warm and dry, no rashes noted. MUSCULOSKELETAL: No lumbar or midline bony tenderness. There is no CVA tenderness. No paraspinal muscle spasm or tenderness. NEURO: Cranial nerves II through XII grossly intact. There are no focal neurologic deficits noted. GCS is 15 PSYCHIATRIC: Patient is in normal mood and affect, cooperative. LYMPHATICS: No major lymphadenopathy noted. Course Quality Measures none Orders Category Date Time Status Bedside Blood Glucose NOW Care 12/31/24 20:47 Active Bedside Blood Glucose Q1HR Care 12/31/24 19:29 Active Steam Shovel Oiler NOW Care 12/31/24 19:30 Active Continuous Pulse Oximetry NOW Care 12/31/24 19:29 Completed EKG (ED ONLY) *Do not use* NOW Care 12/31/24 19:31 Completed EKG (ED ONLY) *Do not use* NOW Care 12/31/24 22:34 Completed In and Out Catheter X1 Care 12/31/24 19:29 Completed Insert IV STAT Care 12/31/24 19:29 Active NPO NOW Care 12/31/24 19:[address] abdomen pelvis wo con Stat Exams 12/31/24 21:[address] head/brain wo con Stat Exams 12/31/24 19:33 Taken EKG (ED Only) Stat Exams 12/31/24 19:29 Draft EKG (ED Only) Stat Exams 12/31/24 22:34 Ordered XR chest 1V portable Stat Exams 12/31/24 20:40 Taken Acetaminophen Stat Lab 12/31/24 19:56 Completed Alcohol, Blood Medical Stat Lab 12/31/24 19:56 Completed Ammonia Stat Lab 12/31/24 19:56 Completed Arterial Blood Gas Stat Lab 12/31/24 19:49 Completed Blood Culture (Lab) Stat Lab 12/31/24 19:56 Received CBC Stat Lab 12/31/24 19:32 Completed Comprehensive Metabolic Panel Stat Lab 12/31/24 19:56 Completed Drug Screen,Urine Stat Lab 12/31/24 19:40 Completed Free T4 (Free Thyroxine) Routine Lab 01/01/25 00:00 Completed Lactic Acid [Lactate (Lactic Acid)] Stat Lab 12/31/24 19:56 Completed Magnesium Stat Lab 12/31/24 19:56 Completed Partial Thromboplastin Time Stat Lab 12/31/24 19:56 Completed Prothrombin Time with INR Stat Lab 12/31/24 19:56 Completed Renal Function Panel Stat Lab 12/31/24 22:59 Completed Thyroid Stimulating Hormone Stat Lab 12/31/24 19:56 Completed Troponin I Stat Lab 12/31/24 19:56 Completed UA, C/S IF [Urinalysis, C/S if Indicated] Stat Lab 12/31/24 19:40 Completed Urine Culture Stat Lab 12/31/24 19:40 Received ALBUTEROL RT 3ml [Proventil Rt 3ml] Med 12/31/24 20:51 Discontinued 10 mg INH X1 ONE Calcium Chloride 10% Abboject Med 12/31/24 20:47 Discontinued 10 ml IV X1 ONE Clindamycin 900Mg Ivpb [Cleocin/D5w Ivpb] 900 mg Med 12/31/24 20:46 Discontinued Pre-Mixed [Pre-mixed Bag] 1 bag IV X1 Dextrose 50% Syr [D50w Syringe Abboject] Med 12/31/24 19:41 Discontinued 50 ml IVP X1 ONE Insulin Regular Med 12/31/24 20:47 Discontinued 5 unit IV X1 ONE Levofloxacin/D5w 500 mg Ivpb [Levaquin Ivpb] Med 12/31/24 20:46 Discontinued 500 mg in 100 ml IV X1 Ringers Lactated 1000 ml [Lactated Ringers] 1,000 ml Med 12/31/24 22:42 Discontinued IV 999 mls/hr Ringers Lactated 500 ml [Lactated Ringers] 500 ml Med 01/01/25 01:03 Discontinued IV 999 mls/hr Sod Polystyrene Sulfon Susp [Kayexalate Susp] Med 12/31/24 22:31 Discontinued 15 gm PO X1 ONE Sod Polystyrene Sulfon Susp [Kayexalate Susp] Med 12/31/24 23:56 Discontinued 15 gm PO X1 ONE Sodium Bicarb 8.4% SYR Med 12/31/24 20:47 Discontinued 100 ml IV X1 ONE Sodium Chloride 0.9% 1000 ml [Ns] 1,000 ml Med 12/31/24 19:29 Active IV 100 mls/hr Sodium Chloride 0.9% 500 ml [Ns] 500 ml Med 12/31/24 20:47 Discontinued IV 500 mls/hr Sodium Chloride 0.9% 500 ml [Ns] 500 ml Med 01/01/25 01:05 Discontinued IV 999 mls/hr Thiamine Inj [Vitamin B-1 Inj] 100 mg Med 01/01/25 01:21 Discontinued Sodium Chloride 0.9% [Ns] 100 ml IV X1 cefTRIAXone/D5w 1gm IV premix [Rocephin/D5w 1gm IV Med 12/31/24 23:18 Discontinued premix] 1 gm in 50 ml IV QDAY cefTRIAXone/D5w 1gm IV premix [Rocephin/D5w 1gm IV Med 01/01/25 09:00 Pending premix] 1 gm in 50 ml IV QDAY cefTRIAXone/D5w 1gm IV premix [Rocephin/D5w 1gm IV Med 01/01/25 01:00 Discontinued premix] 1 gm in 50 ml IV X1 Oxygen Delivery NOW RT 12/31/24 19:31 Active Vital Signs Vital signs: Vital Signs Temperature 99.6 F 12/31/24 19:00 Pulse Rate 86 12/31/24 19:00 Respiratory Rate 18 12/31/24 19:00 Blood Pressure 100/67 12/31/24 19:00 Pulse Oximetry (%) 97 12/31/24 19:00 Oxygen Delivery Method Nasal Cannula 12/31/24 19:00 Oxygen Flow Rate 2 12/31/24 19:00 Altered Mental Status MDM Narrative MDM Narrative:: Scribe Attestation: Maritza Waters am scribing for and in the presence of Dr. Lowery. Provider Notation: Although this document has been carefully reviewed, there may still be some phonetic and other typographical errors. These errors are purely grammatical due to imperfections in the software program and should not be construed in any way to compromise the substance of the patient's medical care during this visit. Severely debilitated, comfort care only patient presenting with failure to thrive. Children report GCS of baseline 14, but Paramedics estimate 9 with poor PO intake for the last several days. Please see PE findings. Laboratory markers pertinent for elevated WBC of 20.8, chronically anemic with hemoglobin of 10.9, no thrombocytopenia, normal platelet count, no left shift or bandemia. Coags are negative. ABG does demonstrate underlying metabolic acidosis. UA grossly infected. ASA, Tylenol, and alcohol undetected. A CT scan of the abdomen/pelvis obtained demonstrating evidence of emphysematous pyelitis and cystitis additional evidence of aspiration pneumonia. Patient received dual-IV ABX and BP currently trending downward. Hospital service consulted and currently evaluating patient as patient may require uro evaluation should patient need aggressive therapy. May seek to admit for conservative therapy given current selective DNR status. Final diagnoses include AMS, Dehydration, and UTI/Pyelitis/Cystis. Patient data External records reviewed:: [facility] previous records (Reviewed prior ED records from 11/21/24. Patient was seen for Homeless.), EMS form and Detention records Clinical information provided by:: EMS Social determinants that could affect healthcare access:: housing (detention) Patient has the following chronic illnesses:: Hypertension, Rheumatoid Arthritis, Diabetes Mellitus Type 2, Recreational Drug Use, and Anxiety How is presenting disease/condition affected by chronic disease/condition?: exacerbated by Evaluation data The following diagnostics were reviewed and interpreted by me:: lab results, radiology exam(s) and EKG tracing(s) (EKG demonstrates sinus rhythm with rate of 82 bpm, left axis, no acute ST segment changes, no ventricular ectopy, relatively low voltage evidence of inferior wall OR, per my interpretation.) Lab and/or radiology exams considered but not ordered:: None Interpretation Summary: RADIOLOGY Chest X-Ray: Pending official radiology report. Head/Brain CT: Findings: There is no evidence of intracranial hemorrhage, mass effect or midline shift. There are periventricular white matter hypodensities, compatible with chronic small vessel ischemia. There is mild volume loss. The calvarium is unremarkable. The mastoid air cells and the visualized paranasal sinuses are clear. Impression: No evidence of intracranial hemorrhage, mass effect or midline shift. Periventricular chronic small vessel ischemia and volume loss. Abdomen/Pelvis CT: Findings: Bilateral lower lobe consolidation is seen with mild surrounding haziness. Cylindrical bronchiectasis is noted in the visualized lungs. Multiple calculi are noted within the gallbladder, without evidence of gallbladder wall thickening or pericholecystic fluid. Air loculi are seen in bilateral renal pelves, more prominent on the left side. Left perinephric fat stranding is noted. The liver, pancreas, spleen and adrenals are unremarkable on this noncontrast study. No evidence of bowel obstruction. Hyperdense material in the stomach, cecum and appendix, which may represent retained oral contrast. The appendix is normal in caliber (images [id number], series 2). There is no mesenteric or retroperitoneal adenopathy. The aorta and its branches demonstrate mild atheromatous calcification without evidence of aneurysm. Diffuse bladder wall thickening is noted. Multiple air loculi are also noted in the urinary bladder. The uterus demonstrates diffuse vascular calcification. The ovaries appear unremarkable. There is no free fluid or free air. Mild to moderate degenerative changes are identified in the spine. Please note, the evaluation is limited due to the absence of intravenous contrast. Impression: 1. No definite evidence of colitis. 2. 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 Recommend clinical and laboratory correlation. 3. Cholelithiasis without evidence of acute cholecystitis. 4. Bilateral lower lung infiltrates, may represent aspiration pneumonia. Recommend clinical correlation and follow-up. 5. Other findings as described above. Medications / Prescriptions Medications or Prescriptions considered but not ordered:: None Medication administrations:: Medication Administration History Sodium Chloride (Ns) 1,000 mls @ 100 mls/hr IV .Q10H ONE Stop: 01/01/25 05:28 Last Admin: 12/31/24 19:45 Dose: 100 mls/hr Documented By: GRETEL Ceftriaxone Sodium/Dextrose (Rocephin/D5w 1gm Iv Premix) 1 gm in 50 mls @ 100 mls/hr IV QDAY ALBERTO Stop: 01/08/25 08:59 Discontinued Medications Albuterol (Albuterol Rt 2.5 Mg/3 Ml Nebu) 10 mg INH X1 ONE Stop: 12/31/24 20:52 Last Admin: 12/31/24 21:16 Dose: 10 mg Documented By: OSWALDO Calcium Chloride (Calcium Chloride 10% Inj 10 Ml Syrg) 10 ml IV X1 ONE Stop: 12/31/24 20:48 Last Admin: 12/31/24 21:20 Dose: 10 ml Documented By: GRETEL Dextrose (Dextrose 50%-Water Inj 50 Ml Syringe) 50 ml IVP X1 ONE Stop: 12/31/24 19:42 Last Admin: 12/31/24 19:46 Dose: 50 ml Documented By: GRETEL Clindamycin Phosphate 900 mg/ (IV Miscellaneous Supplies) 50 mls @ 50 mls/hr IV X1 ONE Stop: 12/31/24 21:45 Last Infusion: 12/31/24 22:47 Dose: Infused Documented By: Admin: 12/31/24 21:19 Dose: 50 mls/hr Documented By: GRETEL Levofloxacin/Dextrose (Levaquin Ivpb) 500 mg in 100 mls @ 100 mls/hr IV X1 ONE Stop: 12/31/24 21:45 Last Infusion: 12/31/24 22:47 Dose: Infused Documented By: Admin: 12/31/24 21:19 Dose: 100 mls/hr Documented By: GRETEL Sodium Chloride (Ns) 500 mls @ 500 mls/hr IV .Q1H ONE Stop: 12/31/24 21:46 Last Infusion: 12/31/24 22:47 Dose: Infused Documented By: Admin: 12/31/24 21:20 Dose: 500 mls/hr Documented By: GRETEL Lactated Ringer's (Lactated Ringers) 1,000 mls @ 999 mls/hr IV .Q1H1M ONE Stop: 12/31/24 23:42 Last Infusion: 01/01/25 00:31 Dose: Infused Documented By: Admin: 12/31/24 23:11 Dose: 999 mls/hr Documented By: GRETEL Ceftriaxone Sodium/Dextrose (Rocephin/D5w 1gm Iv Premix) 1 gm in 50 mls @ 100 mls/hr IV QDAY ALBERTO Stop: 01/07/25 23:17 Last Admin: 12/31/24 23:39 Dose: Not Given Documented By: DT Non-Admin Reason: Cancelled by Provider Ceftriaxone Sodium/Dextrose (Rocephin/D5w 1gm Iv Premix) 1 gm in 50 mls @ 100 mls/hr IV X1 ONE Stop: 01/01/25 01:29 Last Admin: 01/01/25 01:25 Dose: 100 mls/hr Documented By: GRETEL Lactated Ringer's (Lactated Ringers) 500 mls @ 999 mls/hr IV .Q31M ONE Stop: 01/01/25 01:33 Sodium Chloride (Ns) 500 mls @ 999 mls/hr IV .Q31M ONE Stop: 01/01/25 01:35 Last Admin: 01/01/25 01:25 Dose: 999 mls/hr Documented By: GRETEL Thiamine HCl 100 mg/ Sodium (Chloride) 101 mls @ 202 mls/hr IV X1 ONE Stop: 01/01/25 01:50 Insulin Human Regular (Insulin Hum Regular 1 Unit/0.01 Ml (Per Unit)) 5 unit IV X1 ONE Stop: 12/31/24 20:48 Last Admin: 12/31/24 21:26 Dose: 5 unit Documented By: GRETEL Co-signed By: CARL Sodium Bicarbonate (Sodium Bicarb Inj 8.4% Syr 50 Ml Syringe) 100 ml IV X1 ONE Stop: 12/31/24 20:48 Last Admin: 12/31/24 21:20 Dose: 100 ml Documented By: GRETEL Sodium Polystyrene Sulfonate (Sod Polystyrene Sulfon Susp 15 Gm/60 Ml Btl) 15 gm PO X1 ONE Stop: 12/31/24 22:32 Last Admin: 12/31/24 23:11 Dose: 15 gm Documented By: GRETEL Sodium Polystyrene Sulfonate (Sod Polystyrene Sulfon Susp 15 Gm/60 Ml Btl) 15 gm PO X1 ONE Stop: 12/31/24 23:57 Last Admin: 01/01/25 00:31 Dose: 15 gm Documented By: DT See above if any Consultations Consultation(s) initiated? (list below): Yes Diagnosis Differential diagnosis altered mental status: alcoholic intoxication, altered mental status, delirium, dementia, hypoglycemia, hyponatremia, subarachnoid hemorrhage and sepsis Most likely diagnosis given after review of the tests above:: AMS, Dehydration, and UTI/Pyelitis/Cystis. Admission Indicated Admission indicated?: indicated Explain why admission is indicated or not indicated:: AMS, Dehydration, and UTI/Pyelitis/Cystis. Admission Request Was there a request for admission?: Yes Admission Attestation Admission request attestation: Discussed case with [] from Hospitalist service regarding admission. Discussed patients ED course, exam findings, labs, and radiology results. The Hospitalist [agrees,declines] to accept the patient for admission. Disposition Plan Disposition Plan: Admit Critical Care Time Critical Care Time Critical Care Time: Yes Total Critical Care Time (min.): 45 Attestation: The high probability of sudden, clinically significant deterioration in the patient?s condition required the highest level of my preparedness to intervene urgently. The services I provided to this patient were to treat and/or prevent clinically significant deterioration. Services included the following: chart data review, reviewing nursing notes and/or old charts, documentation time, financial operations consultant collaboration regarding findings and treatment options, medication orders and management, direct patient care, vital sign assessments and ordering, interpreting and reviewing diagnostic studies and lab tests. Aggregate critical care time includes only time during which I was engaged in work directly related to the patient?s care, as described above, whether at bedside or elsewhere in the Emergency Department. It did not include time spent performing other reported procedures or the services of residents, students, nurses or physician assistants. Discharge Plan Plan Patient Disposition: Admit Acute Care w/in Hospital Prescriptions/Referrals Prescriptions/Med Rec: No Action UNKNOWN MEDS Qty: 0 gabapentin 600 mg tablet 600 mg PO BID lisinopril 5 mg tablet 5 mg PO QDAY omeprazole 20 mg capsule,delayed release(DR/EC) 20 mg PO QDAY cetirizine 10 mg tablet 10 mg PO QDAY baclofen 10 mg tablet 10 mg PO QDAY Referrals: No Primary/Family,Physician [Primary Care Provider] - In 1 week Problem List Clinical Impression: AMS (altered mental status), UTI (urinary tract infection), Dehydration, Emphysematous pyelitis Patient/Caregiver Discharge Instructions Print Language: [place] Irish Stand Alone Forms: Emi Award Info., Patient Portal Info Letter
[2024-12-31 20:05] LABS: Basophils # (Auto) 0.0 Thou/mm3 (0.0-0.2); Basophils % (Auto) 0 % (0-2.5); Eosinophils # (Auto) 0.0 Thou/mm3 (0.0-0.5); Eosinophils % (Auto) 0 % (0-10); Hematocrit 32.3 % (36.0-46.0); Hemoglobin 10.9 g/dL (12.0-16.0); Immature Granulocytes Auto 0.13 Thou/mm3 (0.00-0.00); Lymphocytes # (Auto) 1.9 Thou/mm3 (1.0-4.8); Lymphocytes % (Auto) 9 % (10-50); Mean Corpuscular HGB Conc 33.7 g/dl (31.0-37.0); Mean Corpuscular Hemoglobin 31.1 pg (25.0-35.0); Mean Corpuscular Volume 92 fL (80-100); Monocytes # (Auto) 0.9 Thou/mm3 (0.0-0.8); Monocytes % (Auto) 5 % (0-12); Neutrophils # (Auto) 17.8 Thou/mm3 (1.8-7.7); Neutrophils % (Auto) 86 % (37-80); Nucleated Red Blood Cell # 0.00 Thou/mm3 (0.00-0.00); Nucleated Red Blood Cell % 0 /100 WBC (0); Platelet Count 351 Thou/mm3 (140-440); RDW Standard Deviation 50.8 fL (36.4-46.3); Red Blood Count 3.51 Miln/mm3 (4.00-5.20); White Blood Count 20.8 Thou/mm3 (3.6-11.0)
[2024-12-31 20:10] LABS: Collection Type, Urine Catheter; Squamous Epithelial Cell,Urine 0 /hpf (0-5)
[2024-12-31 20:30] LABS: INR 1.1 (0.9-1.3); Partial Thromboplastin Time 30.6 Seconds (22.0-36.0); Prothrombin Time 11.8 Seconds (9.0-12.2)
[2024-12-31 20:33] LABS: Ammonia 16 uMol/L (11-32)
--- NOTE | 2024-12-31 20:40 | XR_ITS ---
EXAMINATION: AP chest single view TECHNIQUE: AP portable semiupright chest single view Date and time: December 31, 2024, 2048 hours, comparison 11/19/2024 INDICATION: Chest pain shortness of breath today. FINDINGS: Mild bilateral left perihilar right basilar pneumonia Reduced inspiratory effort Mild elevation right hemidiaphragm Normal heart size IMPRESSION: Mild bilateral pneumonia
[2024-12-31 20:41] LABS: Acetaminophen < 2.0 mcg/mL (10.0-20.0); Alanine Aminotransferase 10 U/L (10-49); Albumin, Serum 3.0 gm/dL (3.4-4.8); Albumin/Globulin Ratio 0.7 (1.2-2.2); Alcohol, Blood Medical < 3.0 mg/dL (0-10.0); Alkaline Phosphatase 234 U/L (46-116); Anion Gap 7 (7-16); Aspartate Amino Transferase 33 U/L (0-34); BUN/Creatinine Ratio 24 Ratio (12-20); Bilirubin,Total 0.2 mg/dL (0.3-1.2); Blood Urea Nitrogen 38 mg/dL (9-23); Calcium 8.4 mg/dL (8.3-10.6); Calcium (Corrected) 9.2 mg/dL (8.5-10.1); Carbon Dioxide 16.3 mMol/L (20.0-31.0); Chloride 102 mMol/L (98-107); Creatinine (Component) 1.6 mg/dL (0.6-1.3); Globulin 4.6 gm/dL (2.3-3.5); Glucose 234 mg/dL (74-106); Magnesium 1.8 mg/dL (1.6-2.6); Osmolality,Calculated 268 (275-295); Sodium 125 mMol/L (136-145); Thyroid Stimulating Hormone 9.19 uIU/mL (0.55-4.78); Total Protein 7.6 gm/dL (5.7-8.2); Troponin I < 0.002 ng/mL (0.0-0.045); eGFR 36 See Note
[2024-12-31 20:42] LABS: Potassium 6.8 mMol/L (3.4-5.1)
[2024-12-31 20:42] LABS: Bacteria,Urine 4+; Bilirubin,Urine Negative (Negative); Blood,Urine 3+ (Negative); Budding Yeast,Urine Present; Glucose, Urine 2+ (Negative); Hyaline Casts,Urine < 1 /hpf (0-1); Ketones,Urine Negative (Negative); Leukocyte Esterase,Urine Positive (Negative); Nitrite,Urine Negative (Negative); PH,Urine 5.5 (5.0-7.0); Protein,Urine 2+ (Neg - Trace); RBC,Urine 652 /hpf (0-3); Specific Gravity,Urine 1.016 (1.001-1.035); Urobilinogen,Urine Negative mg/dL (0.0-1.0); WBC,Urine 1229 /hpf (0-5)
[2024-12-31 20:43] LABS: Clarity,Urine Turbid (Clear/Hazy); Color,Urine Lt-Orange (Lt Yel-Yel); Culture Indicated,Urine Yes
[2024-12-31 21:13] LABS: Lactate (Lactic Acid) 0.8 mMol/L (0.4-2.0)
[2024-12-31] MEDS: ALBUTEROL RT 2.5 MG/3 ML NEBU 10 MG INH (21:16)
[2024-12-31] MEDS: CLINDAMYCIN 900MG IVPB 900 MG in PRE-MIXED 1 BAG 50 MG IV (21:19)
[2024-12-31] MEDS: LEVOFLOXACIN/D5W 500 MG IVPB 500 MG/100 ML BAG 100 MG IV (21:19)
[2024-12-31] MEDS: Sodium Bicarb Inj 8.4% SYR 50 ML SYRINGE 100 ML IV (21:20)
[2024-12-31] MEDS: SODIUM CHLORIDE 0.9% 500 ML 500 ML IV (21:20)
[2024-12-31] MEDS: CALCIUM CHLORIDE 10% INJ 10 ML SYRG IV (21:20)
[2024-12-31] MEDS: INSULIN HUM REGULAR 1 UNIT/0.01 ML (PER UNIT) 5 UNIT IV (21:26)
[2024-12-31 21:38] LABS: Amphetamine/Methamp Scrn,U Negative (Negative); Barbiturate Screen,Urine Negative (Negative); Benzodiazepines Screen,Urine Negative (Negative); Benzoylecgonine Screen, Ur Negative (Negative); Fentanyl Screen,Urine Negative (Negative); Opiate Screen,Urine Negative (Negative); THC Screen,Urine Negative (Negative)
--- NOTE | 2024-12-31 21:38 | PRELIM_ITS ---
CT scan of the head without intravenous contrast (axial sections with sagittal and coronal reformats) December 31, 2024 2028 hours Clinical history: AMS Comparison: No prior study is available for comparison. Findings: There is no evidence of intracranial hemorrhage, mass effect or midline shift. There are periventricular white matter hypodensities, compatible with chronic small vessel ischemia. There is mild volume loss. The calvarium is unremarkable. The mastoid air cells and the visualized paranasal sinuses are clear. Impression: No evidence of intracranial hemorrhage, mass effect or midline shift. Periventricular chronic small vessel ischemia and volume loss. Report Electronically Signed By: Noam Greene 12/31/2024 9:38:01 PM [EST]
--- NOTE | 2024-12-31 21:49 | XR_ITS ---
Examination: CT abdomen and pelvis without contrast. Coronal 3-D reconstructions. Sagittal 2-D reconstructions. Date and time of exam: December 31, 2024, 10:50 p.m. INDICATIONS: Abdominal pain today, clinical diagnosis colitis CTDI: vol (mGy): 6.07 DLP: (mGycm): 287 Technique: Axial images of the abdomen have been obtained, 3 mm slice thickness Intravenous contrast material has not been administered. Low dose protocols were performed. One or more of the following dose reduction techniques were used; automated exposure control, adjustment of the mA and/or KV according to patient size, use of iterative reconstruction technique. 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
--- NOTE | 2024-12-31 22:09 | PRELIM_ITS ---
Radiograph of the chest (single view). December 31, 20242046 hours Clinical history: AMS Comparison: No prior study is available for comparison. Findings: The heart, mediastinum and pulmonary jonathan are unremarkable. The lungs are clear. There is no pleural effusion. The bony thorax is unremarkable. Impression: No acute cardiopulmonary process. Report Electronically Signed By: Ryan Agarwal 12/31/2024 10:08:33 PM [EST]
[2024-12-31] MEDS: SOD POLYSTYRENE SULFON SUSP 15 GM/60 ML BTL PO (23:11)
[2024-12-31] MEDS: RINGERS LACTATED 1000 ML 1,000 ML 999 ML IV (23:11)
[2024-12-31 23:45] LABS: Albumin, Serum 3.0 gm/dL (3.4-4.8); Anion Gap 8 (7-16); BUN/Creatinine Ratio 34 Ratio (12-20); Blood Urea Nitrogen 51 mg/dL (9-23); Calcium 9.4 mg/dL (8.3-10.6); Calcium (Corrected) 10.2 mg/dL (8.5-10.1); Carbon Dioxide 21.5 mMol/L (20.0-31.0); Chloride 105 mMol/L (98-107); Creatinine (Component) 1.5 mg/dL (0.6-1.3); Glucose 121 mg/dL (74-106); Osmolality,Calculated 282 (275-295); Phosphorous 4.2 mg/dL (2.4-5.1); Potassium 5.6 mMol/L (3.4-5.1); Sodium 134 mMol/L (136-145); eGFR 38 See Note
[2025-01-01] VITALS (35 sets, daily range): BP systolic 79–146; BP diastolic 53–108; PULSE 49–134; RESP 11–90; TEMP 35.6–37.3; O2SAT 92–100; BMI 14.6; BMI 14.7
--- NOTE | 2025-01-01 00:19 | PRELIM_ITS ---
CT scan of the abdomen and pelvis without intravenous contrast (axial sections with sagittal and coronal reformats) December 31, 2024 at 2250 hours Clinical History: Rule out colitis. Comparison: No prior study is available for comparison. Findings: Bilateral lower lobe consolidation is seen with mild surrounding haziness. Cylindrical bronchiectasis is noted in the visualized lungs. Multiple calculi are noted within the gallbladder, without evidence of gallbladder wall thickening or pericholecystic fluid. Air loculi are seen in bilateral renal pelves, more prominent on the left side. Left perinephric fat stranding is noted. The liver, pancreas, spleen and adrenals are unremarkable on this noncontrast study. No evidence of bowel obstruction. Hyperdense material in the stomach, cecum and appendix, which may represent retained oral contrast. The appendix is normal in caliber (images 134-144, series 2). There is no mesenteric or retroperitoneal adenopathy. The aorta and its branches demonstrate mild atheromatous calcification without evidence of aneurysm. Diffuse bladder wall thickening is noted. Multiple air loculi are also noted in the urinary bladder. The uterus demonstrates diffuse vascular calcification. The ovaries appear unremarkable. There is no free fluid or free air. Mild to moderate degenerative changes are identified in the spine. Please note, the evaluation is limited due to the absence of intravenous contrast. Impression: 1. No definite evidence of colitis. 2. 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 Recommend clinical and laboratory correlation. 3. Cholelithiasis without evidence of acute cholecystitis. 4. Bilateral lower lung infiltrates, may represent aspiration pneumonia. Recommend clinical correlation and follow-up. 5. Other findings as described above. Report Electronically Signed By: Kenneth Guerrero 01/01/2025 12:18:46 AM [EST]
[2025-01-01] MEDS: SOD POLYSTYRENE SULFON SUSP 15 GM/60 ML BTL PO (00:31)
[2025-01-01] MEDS: cefTRIAXone/D5w 1gm IV premix 1 GM/50 ML BAG IV ×2 (01:25→11:43)
[2025-01-01] MEDS: SODIUM CHLORIDE 0.9% 500 ML 500 ML 999 ML IV (01:25)
[2025-01-01 02:06] LABS: Free T4 (Free Thyroxine) 0.67 ng/dL (0.89-1.76)
[2025-01-01] MEDS: THIAMINE INJ 100 MG in SODIUM CHLORIDE 0.9% 100 ML 202 MG IV (03:40)
--- NOTE | 2025-01-01 04:10 | PD.RESHP ---
Documentation for date of: 01/01/25 HPI History of Present Illness History of present illness: 64 year old female with PMHx Cirrhosis, Malnutrition, Hypertension, Rheumatoid Arthritis, Diabetes Mellitus Type 2, Recreational Drug Use, and Anxiety who presented to the ED BIBA due to failure thrive. Patient admitted for failure to thrive f/t/h emphysematous pyelitis. ED Course Summary Vitals: BP 100/67 HR 18 T 99.6F O2 sat 97% NC 2L Labs: WBC 20.8 Hgb 10.9, ABG pH 7.33 HCO3 18; na 125 K 6.8 CO2 16.3 BUN 38 Cr 1.6 glucose 234 TSH 9.19 T4 0.67. UA turbid +2 protein +2 glucose +3 blood, leukocyte esterase positive, budding yeast Imaging: CTAP, CXR, head ct all pending reads Treatment: insulin regular, NaHCO3, CaCl, NS, levoflox, clindamycin, albuterol Upon initial evaluation patient is AOx2 and GCS 15. She was still diffusely weak and had difficulty communicating overall. She endorses recent history of poor PO intake. Has history of strep agalactia and E. coli in the urine. Her brother was spoken to and confirmed patient will not have invasive procedures. Code: DNR Insulin: Unable to obtain Medical Hx: Cirrhosis, Malnutrition, Hypertension, Rheumatoid Arthritis, Diabetes Mellitus Type 2, Recreational Drug Use, and Anxiety Medications: Allergies: Penicillin Surgical history: Fhx: Noncontributory Living: homeless Work: homeless Alcohol: Unable to obtain Cigarettes/tobacco: Unable to obtain Recreational drugs: shelter, Prior Methamphetamine and Marijuana use Patient admitted for: All 12 systems reviewed and were negative except otherwise stated in HPI. Exam Vital Signs Temp Pulse Resp BP Pulse Ox O2 Del Method O2 Flow Rate 97.8 F 82 16 80/55 L 94 L Nasal Cannula 2 01/01/25 01:00 01/01/25 01:00 01/01/25 01:00 01/01/25 01:00 01/01/25 01:00 01/01/25 01:00 01/01/25 01:00 Narrative Exam GENERAL APPEARANCE: AOx2. Diffusely weak, cachectic. HEENT: Normocephalic atraumatic, no facial trauma, neck is supple. Lids/conjunctiva normal. Mucous membranes moist, nares normal, lips/teeth normal uvula midline without oral pharyngeal erythema, exudate or swelling TMs normal bilaterally. No lymphangitis/lymphedema. CARDIAC: tachycardic, S1+S2 heard. No murmurs, rubs, or gallops noted RESPIRATORY: respiratory effort normal, speaks in full sentences, no tripod position, no accessory muscle use. Lungs clear to auscultation without rhonchi, wheezes, rales ABDOMINAL: NBS. Soft, ND/NT. No evidence of fluid wave. No pulsatile masses on exam, rebound tenderness, Wang sign or pain over Mcburney's point. MUSCLES/EXTREMITIES: No abnormal range of motion, no swelling. DERM: Warm, pink and dry. No rashes, dermatoses, petechiae or lesions. NEUROLOGICAL: Speech is clear and appropriate. Normal level of consciousness. Gait and coordination are normal. 5/5 strength in all extremities. PSYCH: Normal mood and affect. Judgement/competence is appropriate Results: Labs 01/02/25 05:25 01/02/25 05:25 Labs: Short CBC 12/31/24 Range/Units 19:32 WBC 20.8 H (3.6-11.0) Thou/mm3 Hgb 10.9 L (12.0-16.0) g/dL Hct 32.3 L (36.0-46.0) % Plt Count 351 (140-440) Thou/mm3 BMP 12/31/24 12/31/24 19:56 22:59 Sodium 125 L 134 L Potassium 6.8 H* 5.6 H D Chloride 102 105 Carbon Dioxide 16.3 L 21.5 BUN 38 H 51 H Creatinine 1.6 H 1.5 H Glucose 234 H 121 H D Calcium 8.4 9.4 Cardiac Enzymes 12/31/24 Range/Units 19:56 Troponin I < 0.002 (0.0-0.045) ng/mL Liver Function 12/31/24 12/31/24 Range/Units 19:56 22:59 Total Bilirubin 0.2 L (0.3-1.2) mg/dL AST 33 (0-34) U/L ALT 10 (10-49) U/L Alkaline Phosphatase 234 H (46-116) U/L Albumin 3.0 L 3.0 L (3.4-4.8) gm/dL Urine 12/31/24 Range/Units 19:40 Urine Color Lt-Industry A (Lt Yel-Yel) Urine Clarity Turbid A (Clear/Hazy) Urine pH 5.5 (5.0-7.0) Ur Specific Wolcott 1.016 (1.001-1.035) Urine Protein 2+ A (Neg - Trace) Urine Glucose (UA) 2+ A (Negative) ABG Interpretation ABG results: 12/31/24 19:49 ABG pH 7.33 L ABG pCO2 33 ABG pO2 105 ABG HCO3 18 L ABG O2 Saturation 99 H ABG Base Excess -8 L Quality Measures Quality Measures VTE prophylaxis Advance care planning discussed with:: sibling Medications Home Medications and Allergies Home Medications ?Medication ?Instructions ?Recorded ?Confirmed ?Type baclofen 10 mg tablet 10 mg PO QDAY 07/03/24 01/01/25 History cetirizine 10 mg tablet 10 mg PO QDAY 07/03/24 01/01/25 History gabapentin 600 mg tablet 600 mg PO BID 07/03/24 01/01/25 History lisinopril 5 mg tablet 5 mg PO QDAY 07/03/24 01/01/25 History omeprazole 20 mg capsule,delayed 20 mg PO QDAY 07/03/24 01/01/25 History release empagliflozin 25 mg tablet 25 mg PO QDAY DM 01/01/25 01/01/25 History (Jardiance) ergocalciferol (vitamin D2) 1,250 1,250 mcg PO QDAY 01/01/25 01/01/25 History mcg (50,000 unit) capsule oxybutynin chloride 5 mg tablet 5 mg PO QDAY 01/01/25 01/01/25 History sitagliptin phosphate 50 1 tab PO BID 01/01/25 01/01/25 History mg-metformin 1,000 mg tablet (Janumet) tramadol 50 mg tablet 50 mg PO Q6H 01/01/25 01/01/25 History Allergies Allergy/AdvReac Type Severity Reaction Status Date / Time Penicillins Allergy Verified 11/19/24 19:56 Visit Medications Acetaminophen (Acetaminophen 325 Mg Tablet) 650 mg PO Q6H PRN PRN Reason: Fever >100.4 or pain 1-3 Stop: 01/31/25 03:46 Docusate Sodium (Docusate Sod 100 Mg Capsule) 100 mg PO QDAY ALBERTO; Protocol Stop: 01/31/25 08:59 Famotidine (Famotidine Inj 10 Mg/Ml Vial 2 Ml) 20 mg IVP Q12HR [facility] Stop: 01/31/25 08:59 Heparin Sodium (Porcine) (Heparin Sod Inj 5000 Unit/Ml Vial) 5,000 unit SC Q12HR [facility] Stop: 01/15/25 08:59 Sodium Chloride (Ns) 1,000 mls @ 100 mls/hr IV .Q10H ONE Stop: 01/01/25 05:28 Last Admin: 12/31/24 19:45 Dose: 100 mls/hr Ceftriaxone Sodium/Dextrose (Rocephin/D5w 1gm Iv Premix) 1 gm in 50 mls @ 100 mls/hr IV QDAY [facility] Stop: 01/08/25 08:59 Lactated Ringer's (Lactated Ringers) 1,000 mls @ 75 mls/hr IV .[id number] [facility] Stop: 01/31/25 03:59 Ondansetron HCl (Ondansetron Inj 2 Mg/Ml Inj 2 Ml) 4 mg IVP Q6H PRN; Protocol PRN Reason: NAUSEA OR VOMITING Stop: 01/31/25 03:46 Discontinued Medications Albuterol (Albuterol Rt 2.5 Mg/3 Ml Nebu) 10 mg INH X1 ONE Stop: 12/31/24 20:52 Last Admin: 12/31/24 21:16 Dose: 10 mg Calcium Chloride (Calcium Chloride 10% Inj 10 Ml Syrg) 10 ml IV X1 ONE Stop: 12/31/24 20:48 Last Admin: 12/31/24 21:20 Dose: 10 ml Dextrose (Dextrose 50%-Water Inj 50 Ml Syringe) 50 ml IVP X1 ONE Stop: 12/31/24 19:42 Last Admin: 12/31/24 19:46 Dose: 50 ml Clindamycin Phosphate 900 mg/ (IV Miscellaneous Supplies) 50 mls @ 50 mls/hr IV X1 ONE Stop: 12/31/24 21:45 Last Infusion: 12/31/24 22:47 Dose: Infused Levofloxacin/Dextrose (Levaquin Ivpb) 500 mg in 100 mls @ 100 mls/hr IV X1 ONE Stop: 12/31/24 21:45 Last Infusion: 12/31/24 22:47 Dose: Infused Sodium Chloride (Ns) 500 mls @ 500 mls/hr IV .Q1H ONE Stop: 12/31/24 21:46 Last Infusion: 12/31/24 22:47 Dose: Infused Lactated Ringer's (Lactated Ringers) 1,000 mls @ 999 mls/hr IV .Q1H1M ONE Stop: 12/31/24 23:42 Last Infusion: 01/01/25 00:31 Dose: Infused Ceftriaxone Sodium/Dextrose (Rocephin/D5w 1gm Iv Premix) 1 gm in 50 mls @ 100 mls/hr IV QDAY ALBERTO Stop: 01/07/25 23:17 Last Admin: 12/31/24 23:39 Dose: Not Given Ceftriaxone Sodium/Dextrose (Rocephin/D5w 1gm Iv Premix) 1 gm in 50 mls @ 100 mls/hr IV X1 ONE Stop: 01/01/25 01:29 Last Infusion: 01/01/25 03:47 Dose: Infused Lactated Ringer's (Lactated Ringers) 500 mls @ 999 mls/hr IV .Q31M ONE Stop: 01/01/25 01:33 Sodium Chloride (Ns) 500 mls @ 999 mls/hr IV .Q31M ONE Stop: 01/01/25 01:35 Last Admin: 01/01/25 01:25 Dose: 999 mls/hr Thiamine HCl 100 mg/ Sodium (Chloride) 101 mls @ 202 mls/hr IV X1 ONE Stop: 01/01/25 01:50 Last Admin: 01/01/25 03:40 Dose: 202 mls/hr Insulin Human Regular (Insulin Hum Regular 1 Unit/0.01 Ml (Per Unit)) 5 unit IV X1 ONE Stop: 12/31/24 20:48 Last Admin: 12/31/24 21:26 Dose: 5 unit Sodium Bicarbonate (Sodium Bicarb Inj 8.4% Syr 50 Ml Syringe) 100 ml IV X1 ONE Stop: 12/31/24 20:48 Last Admin: 12/31/24 21:20 Dose: 100 ml Sodium Polystyrene Sulfonate (Sod Polystyrene Sulfon Susp 15 Gm/60 Ml Btl) 15 gm PO X1 ONE Stop: 12/31/24 22:32 Last Admin: 12/31/24 23:11 Dose: 15 gm Sodium Polystyrene Sulfonate (Sod Polystyrene Sulfon Susp 15 Gm/60 Ml Btl) 15 gm PO X1 ONE Stop: 12/31/24 23:57 Last Admin: 01/01/25 00:31 Dose: 15 gm Assessment & Plan Plan 64 year old female with PMHx Cirrhosis, Malnutrition, Hypertension, Rheumatoid Arthritis, Diabetes Mellitus Type 2, Recreational Drug Use, and Anxiety who presented to the ED BIBA due to failure thrive. Patient admitted for failure to thrive f/t/h emphysematous pyelitis. #Emphysematous pyelitis & cystitis #VIDAL UA bacteria and yeast. Imaging shows air in the bladder and collecting ducts. Patient may require urology evaluation for possible intervention but as family emphasized that they don't want any invasive procedures will admit patient for treatment with IV abx. BUN 41 Cr 1.4 WBC 20.8. Fluids given in ED, clindamycin and levofloxacin in ED. Plan: -Ceftriaxone 1g IV QD (01/01 - -IVF #Failure to thrive #BMI <18.5 #Electrolyte abnormalities #Hyperkalemia Patient had very poor PO intake. Is cachectic. K 6.8 Na 125 HCO3 16.3. gave potassium cocktail in the ED Plan: -Dietitian consulted -Potassium cocktail prn -Thiamine QD #Hyperthyroid Patient unable to communicate effectively TSH 9.19 T4 0.67 Plan: -FUP patient symptoms and medications #hx of T2DM Plan: -ISS #Hx of HTN Speak with patient when more oriented #Hx of RA Confirm meds with patient when more oriented #Hx of cirrhosis Confirm meds with patient when more oriented Health Maintenance: Code status: DNR DVT prophylaxis: Heparin GI prophylaxis: Famotidine Diet: NPO Bernardo: yes Lines: PIV Supplemental O2: NC Disposition: Admitted for failure to thrive fth emphysematous cystitis and pyelitis. Patient seen and reviewed with attending Dr. Land. Note written by Jacobo Ponce MD PGY-1 Attending Provider Attestation/Addendum After examination of the patient and review of the clinical data I feel that this patient needs admission to the hospital for further treatment/evaluation. Plan of care discussed with patient and is in agreement. I Kael Land MD, attest that I was physically present for lieberman portions of evaluation, and examined patient, labs and imagings and plan of care were discussed with IM residents team, and I agree with the findings and plans documented above.
[2025-01-01 05:25] LABS: Basophils # (Auto) 0.0 Thou/mm3 (0.0-0.2); Basophils % (Auto) 0 % (0-2.5); Eosinophils # (Auto) 0.0 Thou/mm3 (0.0-0.5); Eosinophils % (Auto) 0 % (0-10); Hematocrit 32.0 % (36.0-46.0); Hemoglobin 10.4 g/dL (12.0-16.0); Immature Granulocytes Auto 0.14 Thou/mm3 (0.00-0.00); Lymphocytes # (Auto) 0.7 Thou/mm3 (1.0-4.8); Lymphocytes % (Auto) 3 % (10-50); Mean Corpuscular HGB Conc 32.5 g/dl (31.0-37.0); Mean Corpuscular Hemoglobin 30.6 pg (25.0-35.0); Mean Corpuscular Volume 94 fL (80-100); Monocytes # (Auto) 0.8 Thou/mm3 (0.0-0.8); Monocytes % (Auto) 4 % (0-12); Neutrophils # (Auto) 17.8 Thou/mm3 (1.8-7.7); Neutrophils % (Auto) 91 % (37-80); Nucleated Red Blood Cell # 0.00 Thou/mm3 (0.00-0.00); Nucleated Red Blood Cell % 0 /100 WBC (0); Platelet Count 336 Thou/mm3 (140-440); RDW Standard Deviation 51.0 fL (36.4-46.3); Red Blood Count 3.40 Miln/mm3 (4.00-5.20); White Blood Count 19.5 Thou/mm3 (3.6-11.0)
[2025-01-01] MEDS: RINGERS LACTATED 1000 ML 1,000 ML 75 ML IV ×2 (05:51→17:41)
[2025-01-01 06:13] LABS: Alanine Aminotransferase 8 U/L (10-49); Albumin, Serum 2.9 gm/dL (3.4-4.8); Albumin/Globulin Ratio 0.7 (1.2-2.2); Alkaline Phosphatase 200 U/L (46-116); Anion Gap 8 (7-16); Aspartate Amino Transferase 28 U/L (0-34); BUN/Creatinine Ratio 29 Ratio (12-20); Bilirubin,Total 0.2 mg/dL (0.3-1.2); Blood Urea Nitrogen 41 mg/dL (9-23); Calcium 9.0 mg/dL (8.3-10.6); Calcium (Corrected) 9.9 mg/dL (8.5-10.1); Carbon Dioxide 20.5 mMol/L (20.0-31.0); Chloride 108 mMol/L (98-107); Creatinine (Component) 1.4 mg/dL (0.6-1.3); Globulin 4.0 gm/dL (2.3-3.5); Glucose 129 mg/dL (74-106); Magnesium 1.6 mg/dL (1.6-2.6); Osmolality,Calculated 284 (275-295); Phosphorous 4.4 mg/dL (2.4-5.1); Potassium 5.2 mMol/L (3.4-5.1); Sodium 136 mMol/L (136-145); Total Protein 6.9 gm/dL (5.7-8.2); eGFR 42 See Note
--- NOTE | 2025-01-01 08:22 | PC.NURSE ---
Pt. had a large loose BM in brief, pt. cleaned on ER gurney before transferring pt. to bed in room 278, pt. has large round purple bruise to left buttock. Pt. tolerated well. Pt. states she feels more BM coming out.
[2025-01-01] MEDS: DOCUSATE SOD 100 MG CAPSULE PO (09:16)
[2025-01-01] MEDS: THIAMINE 100 MG TABLET PO (09:16)
[2025-01-01] MEDS: HEPARIN SOD INJ 5000 UNIT/ML VIAL SC ×2 (09:17→20:24)
[2025-01-01] MEDS: FAMOTIDINE INJ 10 MG/ML VIAL 2 ML 20 MG IVP ×2 (09:17→20:24)
--- NOTE | 2025-01-01 10:43 | ECHO_ITS ---
Patient Info Name: Nya Valle Age: 64 years : 1960 Gender: Female Ht: 145 cm Wt: 38 kg BSA: 1.24 m2 BP: 99 / 64 mmHg Heart Rhythm: Sinus Rhythm Exam Date: 01/01/2025 11:30 AM Admit Date: 01/01/2025 Site: [facility] Patient Status: I Technical Quality: Poor Exam Type: CA echo doppler complete Reason for Poor Study: poor echocardiographic windows Moccasin Sewer: Isabel Santoyo Ordering Physician: Keara Iqbal Study Info Indications Falls - Primary Location: S2NX Left Ventricular Outflow Tract Name Value Normal LVOT 2D LVOT Diameter 1.9 cm LVOT Doppler LVOT Peak Velocity 69 cm/s LVOT Mean Gradient 1 mmHg LVOT VTI 16 cm LVOT VTI/AV VTI Ratio 0.9 LVOT Stroke Volume 46 ml Pulmonic Valve Name Value Normal PV Doppler PV Peak Velocity 94 cm/s Mitral Valve Name Value Normal MV Doppler MV Decel Barnes 296 cm/s2 MV PHT 55 ms MV Area (PHT) 4.0 cm2 4.0-5.0 MV Diastolic Function MV E Peak Velocity 56 cm/s MV A Peak Velocity 96 cm/s MV E/A 0.6 MV Annular TDI MV Septal e' Velocity 5.6 cm/s MV E/e' (Septal) 10.1 MV Lateral e' Velocity 11.4 cm/s MV E/e' (Lateral) 4.9 MV e' Average 8.48 cm/s MV E/e' (Average) 7.5 Tricuspid Valve Name Value Normal Estimated PAP/RSVP RA Pressure 5 mmHg <=5 TV Annular TDI TV Lateral Taylor s' Velocity 14.5 cm/s >=9.5 Aorta Name Value Normal Ascending Aorta Ao Root Diameter (MM) 2.7 cm Ao Root Diam Index (MM) 2.2 cm/m2 Ao Root Diameter (2D) 2.9 cm Ao Root Diam Index (2D) 2.3 cm/m2 Aortic Valve Name Value Normal AV 2D/MM AV Cusp Sep (MM) 1.2 cm AV Doppler AV Peak Velocity 89 cm/s AV Mean Gradient 2 mmHg AV VTI 18 cm AV Area (Cont Eq VTI) 2.5 cm2 >=3.0 AV Area (Cont Eq Jay) 2.2 cm2 AV DI (Jay) 0.77 AV Regurgitation 2D LVOT Area 2.8 cm2 Ventricles Name Value Normal LV Dimensions 2D/MM IVS Diastolic Thickness (2D) 0.7 cm 0.6-0.9 LVID Diastole (2D) 3.5 cm 3.8-5.2 LVIW Diastolic Thickness (2D) 0.7 cm 0.6-0.9 LVID Systole (2D) 2.5 cm 2.2-3.5 LVOT Diameter 1.9 cm LV Mass (2D Cubed) 62.81 g 67.00-162.00 LV Mass Index (2D Cubed) 51 g/m2 43-95 Relative Wall Thickness (2D) 0.40 <=0.42 IVS/LVIW Diastolic Thickness (2D) 1.00 0.00-1.50 LV Fractional Shortening/Ejection Fraction 2D/MM LV Fractional Shortening (2D) 29 % 27-45 LV EF (2D Teichholz) 56 % LV Diastolic Volume (4C MOD) 70 ml LV EF (4C MOD) 70 % LV Diastolic Volume (2C MOD) 39 ml LV EF (2C MOD) 66 % LV Diastolic Volume (BP MOD) 57 ml 46-106 LV Diastolic Volume Index (BP MOD) 46 ml/m2 29-61 LV Systolic Volume (BP MOD) 17 ml 14-42 LV Systolic Volume Index (BP MOD) 14 ml/m2 8-24 LV EF (BP MOD) 70 % 54-74 LV Diastolic Length (4C) 6.6 cm LV Systolic Length (4C) 4.4 cm LV Stroke Volume (4C MOD) 49 ml RV Dimensions 2D/MM TV Lateral Taylor s' Velocity 14.5 cm/s >=9.5 Atria Name Value Normal LA Dimensions LA Dimension (MM) 2.4 cm 2.7-3.8 Left Ventricle Left ventricular chamber dimension is normal. Left ventricular systolic function is normal with an ejection fraction by Biplane Method of Discs of 70 %. There is normal geometry noted in the left ventricle. Left ventricular segmental wall motion is normal. There is grade I diastolic dysfunction in the left ventricle. Right Ventricle Right ventricular chamber dimension is normal. Right ventricular systolic function is reduced. Left Atrium Left atrial chamber dimension is normal. Right Atrium Right atrial chamber dimension is normal. Aortic Valve The aortic valve is trileaflet. There is mild aortic valve sclerosis. There is no aortic valve stenosis with a peak velocity of 89 cm/s, mean gradient of 2 mmHg, and aortic valve area of 2.5 cm2. There is no aortic valve regurgitation. Pulmonic Valve The pulmonic valve is normal. There is no pulmonic valve stenosis. There is no pulmonic regurgitation. Mitral Valve The mitral valve has a calcified annulus. There is no mitral valve stenosis. There is no mitral valve regurgitation. Tricuspid Valve The tricuspid valve leaflets are normal. There is no tricuspid valve stenosis. There is trace tricuspid valve regurgitation. Unable to estimate pulmonary artery systolic pressure due to inadequate tricuspid regurgitant envelope. Pericardium/Pleural The pericardium appears normal. There is no pericardial effusion. No pleural effusion visualized. Inferior Vena Cava Normal inferior vena cava with >50% collapse upon inspiration consistent with normal right atrial pressure, 5 mmHg. Aorta The aortic measurements are indexed to age and body surface area. Summary 1. The echocardiogram is normal by two-dimensional, color flow imaging, and Doppler interrogation. 2. Left ventricle size is normal and systolic function is normal. Estimated ejection fraction is 65-70%. There is grade I diastolic dysfunction. There is normal geometry noted. 3. Right ventricle chamber size is normal and systolic function is reduced. 4. There is mild aortic valve sclerosis with no stenosis. 5. There is trace tricuspid valve regurgitation. Report Signatures Finalized by Christophe Dhillon on 01/01/2025 02:49 PM
[2025-01-01] MEDS: LEVOTHYROXINE SODIUM 25 MCG TABLET PO (11:42)
--- NOTE | 2025-01-01 12:33 | ESPR_ITS ---
<Statement entered by Keara Iqbal MD - 01/01/25 18:00> Patient was seen and examined at bedside. I agree on the assessment and plan on this note as documented by resident Franci Vasquez DO PGY1. 64-year-old female admitted overnight, CT read positive for pyelonephritis, increase ceftriaxone to 2 g daily, will continue with IV fluids. Does have finding of emphysematous cystitis, consulted urologist Dr. Bradford, he will examine the patient in AM. Patient is significantly cachectic, significant failure to thrive and protein calorie malnutrition noted. Will consult dietitian, currently has good appetite. Will consult speech therapy to rule out any significant underlying dysphagia. Renal function, hyperkalemia has improved. Hypothyroidism noted, will start on levothyroxine 25 mcg p.o. will assess patient's response, continue to monitor closely. Case discussed with attending Dr. Anupam Stock, DO Keara Iqbal MD PGY-2 Documentation for date of: 01/01/25 Subjective Subjective Interval history: 64 year old female with PMHx Cirrhosis, Malnutrition, Hypertension, Rheumatoid Arthritis, Diabetes Mellitus Type 2, Recreational Drug Use, and Anxiety BIBA from [facility] presented with failure to thrive. EMS called by brother ED: WBC 20.8 Na 125 K 6.8 BUN 38 Cr 1.6 glucose 234 TSH 9.19 T4 0.67. UA turbid +2 protein +2 glucose +3 blood, leukocyte esterase positive, budding yeast Head CT 12/31: negative CXR 12/31: Mild bilateral left perihilar right basilar pneumonia CTAP 12/31: Emphysematous cystitis and bilateral pyelonephritis Brother confirmed patient will not have invasive procedures Patient reported not knowing why she got brought to hospital. Reported that she's in the middle of [place] for liver function by [facility], next follow up on . Admitted to having poor appetite but mentioned have not always been this skinny . Has history of strep agalactia and E. coli UTI. Exam Vital Signs Temp Pulse Resp BP Pulse Ox O2 Del Method O2 Flow Rate 99.2 F 82 16 99/64 98 Nasal Cannula 3 01/01/25 07:45 01/01/25 07:45 01/01/25 07:45 01/01/25 07:45 01/01/25 07:45 01/01/25 07:45 01/01/25 07:45 Narrative Exam GENERAL APPEARANCE: AOx3. Diffusely weak, severe cachectic. HEENT: Normocephalic atraumatic, no facial trauma, neck is supple. Lids/conjunctiva normal. Mucous membranes moist, nares normal, lips/teeth normal uvula midline without oral pharyngeal erythema, exudate or swelling TMs normal bilaterally. No lymphangitis/lymphedema. CARDIAC: tachycardic, S1+S2 heard. Holosystolic murmur at Left 2nd intercostal space RESPIRATORY: respiratory effort normal, speaks in full sentences, no tripod position, no accessory muscle use. Lungs clear to auscultation without rhonchi, wheezes, rales. In 2L NC ABDOMINAL: NBS. Soft, ND/NT. No evidence of fluid wave. No pulsatile masses on exam, rebound tenderness, Wang sign or pain over Mcburney's point. MUSCLES/EXTREMITIES: No abnormal range of motion, no swelling. DERM: Warm, pink and dry. No rashes, dermatoses, petechiae or lesions. NEUROLOGICAL: Speech is clear and appropriate. Normal level of consciousness. Gait and coordination are normal. 5/5 strength in all extremities. PSYCH: Normal mood and affect. Judgement/competence is appropriate Objective Labs 01/02/25 05:25 01/02/25 05:25 Labs: Laboratory Results - last 24 hr 12/31/24 12/31/24 12/31/24 19:32 19:40 19:49 WBC 20.8 H RBC 3.51 L Hgb 10.9 L Hct 32.3 L MCV 92 MCH 31.1 MCHC 33.7 RDW Std Deviation 50.8 H Plt Count 351 Neut % (Auto) 86 H Lymph % (Auto) 9 L Upson % (Auto) 5 Eos % (Auto) 0 Baso % (Auto) 0 Neut # (Auto) 17.8 H Lymph # (Auto) 1.9 Upson # (Auto) 0.9 H Eos # (Auto) 0.0 Baso # (Auto) 0.0 Immature Gran # (Auto) 0.13 H Absolute Nucleated RBC 0.00 Immature Gran % 1 H Nucleated RBC % 0 PT INR APTT Puncture Site Left Radial ABG pH 7.33 L ABG pCO2 33 ABG pO2 105 ABG HCO3 18 L ABG O2 Saturation 99 H ABG Base Excess -8 L FiO2 21 Sodium Potassium Chloride Carbon Dioxide Anion Gap BUN Creatinine Estim Creat Clear Calc eGFR BUN/Creatinine Ratio Glucose Calculated Osmolality Lactic Acid Calcium Corrected Calcium Phosphorus Magnesium Total Bilirubin AST ALT Alkaline Phosphatase Ammonia Troponin I Total Protein Albumin Globulin Albumin/Globulin Ratio TSH Free T4 Ur Collection Type Catheter Urine Color Lt-[place] A Urine Clarity Turbid A Urine pH 5.5 Ur Specific [place] 1.016 Urine Protein 2+ A Urine Glucose (UA) 2+ A Urine Ketones Negative Urine Blood 3+ A Urine Nitrite Negative Urine Bilirubin Negative Urine Urobilinogen (Auto) Negative Ur Leukocyte Esterase Positive Urine RBC 652 H Urine WBC 1229 H Ur Squamous Epith Cells 0 Urine Bacteria 4+ A Hyaline Casts < 1 Urine Yeast (Budding) Present A Ur Culture Indicated? Yes Urine Opiates Screen Negative Urine Fentanyl Screen Negative Acetaminophen Ur Barbiturates Screen Negative U Amphetamin/Meth Scrn Negative U Benzodiazepines Scrn Negative U Cocaine Metab Screen Negative U Marijuana (THC) Screen Negative Ethyl Alcohol 12/31/24 12/31/24 01/01/25 19:56 22:59 00:00 WBC RBC Hgb Hct MCV MCH MCHC RDW Std Deviation Plt Count Neut % (Auto) Lymph % (Auto) Upson % (Auto) Eos % (Auto) Baso % (Auto) Neut # (Auto) Lymph # (Auto) Upson # (Auto) Eos # (Auto) Baso # (Auto) Immature Gran # (Auto) Absolute Nucleated RBC Immature Gran % Nucleated RBC % PT 11.8 INR 1.1 APTT 30.6 Puncture Site ABG pH ABG pCO2 ABG pO2 ABG HCO3 ABG O2 Saturation ABG Base Excess FiO2 Sodium 125 L 134 L Potassium 6.8 H* 5.6 H D Chloride 102 105 Carbon Dioxide 16.3 L 21.5 Anion Gap 7 8 BUN 38 H 51 H Creatinine 1.6 H 1.5 H Estim Creat Clear Calc Not Performed. Not Performed. eGFR 36 L 38 L BUN/Creatinine Ratio 24 H 34 H Glucose 234 H 121 H D Calculated Osmolality 268 L 282 Lactic Acid 0.8 Calcium 8.4 9.4 Corrected Calcium 9.2 10.2 H Phosphorus 4.2 Magnesium 1.8 Total Bilirubin 0.2 L AST 33 ALT 10 Alkaline Phosphatase 234 H Ammonia 16 Troponin I < 0.002 Total Protein 7.6 Albumin 3.0 L 3.0 L Globulin 4.6 H Albumin/Globulin Ratio 0.7 L TSH 9.19 H Free T4 0.67 L Ur Collection Type Urine Color Urine Clarity Urine pH Ur Specific [place] Urine Protein Urine Glucose (UA) Urine Ketones Urine Blood Urine Nitrite Urine Bilirubin Urine Urobilinogen (Auto) Ur Leukocyte Esterase Urine RBC Urine WBC Ur Squamous Epith Cells Urine Bacteria Hyaline Casts Urine Yeast (Budding) Ur Culture Indicated? Urine Opiates Screen Urine Fentanyl Screen Acetaminophen < 2.0 L Ur Barbiturates Screen U Amphetamin/Meth Scrn U Benzodiazepines Scrn U Cocaine Metab Screen U Marijuana (THC) Screen Ethyl Alcohol < 3.0 01/01/25 05:17 WBC 19.5 H RBC 3.40 L Hgb 10.4 L Hct 32.0 L MCV 94 MCH 30.6 MCHC 32.5 RDW Std Deviation 51.0 H Plt Count 336 Neut % (Auto) 91 H Lymph % (Auto) 3 L Upson % (Auto) 4 Eos % (Auto) 0 Baso % (Auto) 0 Neut # (Auto) 17.8 H Lymph # (Auto) 0.7 L Upson # (Auto) 0.8 Eos # (Auto) 0.0 Baso # (Auto) 0.0 Immature Gran # (Auto) 0.14 H Absolute Nucleated RBC 0.00 Immature Gran % 1 H Nucleated RBC % 0 PT INR APTT Puncture Site ABG pH ABG pCO2 ABG pO2 ABG HCO3 ABG O2 Saturation ABG Base Excess FiO2 Sodium 136 Potassium 5.2 H Chloride 108 H Carbon Dioxide 20.5 Anion Gap 8 BUN 41 H Creatinine 1.4 H Estim Creat Clear Calc Not Performed. eGFR 42 L BUN/Creatinine Ratio 29 H Glucose 129 H Calculated Osmolality 284 Lactic Acid Calcium 9.0 Corrected Calcium 9.9 Phosphorus 4.4 Magnesium 1.6 Total Bilirubin 0.2 L AST 28 ALT 8 L Alkaline Phosphatase 200 H D Ammonia Troponin I Total Protein 6.9 Albumin 2.9 L Globulin 4.0 H Albumin/Globulin Ratio 0.7 L TSH Free T4 Ur Collection Type Urine Color Urine Clarity Urine pH Ur Specific [place] Urine Protein Urine Glucose (UA) Urine Ketones Urine Blood Urine Nitrite Urine Bilirubin Urine Urobilinogen (Auto) Ur Leukocyte Esterase Urine RBC Urine WBC Ur Squamous Epith Cells Urine Bacteria Hyaline Casts Urine Yeast (Budding) Ur Culture Indicated? Urine Opiates Screen Urine Fentanyl Screen Acetaminophen Ur Barbiturates Screen U Amphetamin/Meth Scrn U Benzodiazepines Scrn U Cocaine Metab Screen U Marijuana (THC) Screen Ethyl Alcohol ABG Interpretation ABG results: 12/31/24 19:49 ABG pH 7.33 L ABG pCO2 33 ABG pO2 105 ABG HCO3 18 L ABG O2 Saturation 99 H ABG Base Excess -8 L Quality Measures Quality Measures none Advance care planning discussed with:: patient Assessment & Plan Assessment Current Active Medications: Generic Name Dose Route Start Last Admin Trade Name Freq PRN Reason Stop Dose Admin Acetaminophen 650 mg 01/01/25 03:47 Acetaminophen 325 Mg Tablet PO 01/31/25 03:46 Q6H PRN Fever >100.4 or pain 1-3 Famotidine 20 mg 01/01/25 09:00 01/01/25 09:17 Famotidine Inj 10 Mg/Ml Vial 2 Ml IVP 01/31/25 08:59 20 mg Q12HR ALBERTO Administration Heparin Sodium (Porcine) 5,000 unit 01/01/25 09:00 01/01/25 09:17 Heparin Sod Inj 5000 Unit/Ml Vial SC 01/15/25 08:59 5,000 unit Q12HR ALBERTO Administration Lactated Ringer's 1,000 mls @ 75 mls/hr 01/01/25 04:00 01/01/25 05:51 Lactated Ringers IV 01/31/25 03:59 75 mls/hr .[id number] ALBERTO Administration Ceftriaxone Sodium 2 gm/ 50 mls @ 100 mls/hr 01/02/25 09:00 Sodium Chloride IV 01/08/25 08:59 QDAY ALBERTO Levothyroxine Sodium 25 mcg 01/01/25 10:40 01/01/25 11:42 Levothyroxine Sodium 25 Mcg Tablet PO 01/31/25 10:39 25 mcg ACBR ALBERTO Administration Ondansetron HCl 4 mg 01/01/25 03:47 Ondansetron Inj 2 Mg/Ml Inj 2 Ml IVP 01/31/25 03:46 Q6H PRN NAUSEA OR VOMITING Protocol Sennosides 2 tab 01/01/25 10:39 Senna/Docusate Sod 1 Tab Tablet PO 01/31/25 10:38 QDAY PRN CONSTIPATION Protocol Thiamine HCl 100 mg 01/01/25 09:00 01/01/25 09:16 Thiamine 100 Mg Tablet PO 01/31/25 08:59 100 mg QDAY ALBERTO Administration Plan 64 year old female with PMHx Cirrhosis, Malnutrition, Hypertension, Rheumatoid Arthritis, Diabetes Mellitus Type 2, Recreational Drug Use, and Anxiety who presented to the ED BIBA due to failure to thrive. Patient admitted for failure to thrive found to have UTI, pneumonia, emphysematous cystitis and bilateral pyelonephritis #Emphysematous pyelitis & cystitis #VIDAL UA bacteria and yeast. Imaging shows air in the bladder and collecting ducts. Patient family confirms no invasive procedures, will treat with IV abx. BUN 41 Cr 1.4 WBC 20.8. Fluids given in ED, clindamycin and levofloxacin in ED. Plan: -Ceftriaxone 2g IV QD (01/02-01/08) -Continue LR 75cc/hr -Consult Urologist, Dr. Bradford, appreciate recs #Community Acquired pneumonia likely 2/2 to gm+/gm- bacteria Plan: -continue ctx #Failure to thrive #Severe protein calorie malnutrition #Electrolyte abnormalities #Hyperkalemia Patient had very poor PO intake. Is severely cachectic. Admitted to having poor appetite but mentioned have not always been this skinny . BMI 14.7. Na 125 K 6.8 improved to 5.2 status post Kayexalate in the ED Plan: -Dietitian consulted -Thiamine QD -Continue LR 75cc/hr -Monitor renal panel #Hyperkalemia-Improved Plan: -CTM #Hyporthyroid TSH 9.19 T4 0.67 Plan: -Start Levothyroxine 25mg PO #Hx of T2DM Plan: -ISS #Hx of HTN -Blood pressure is currently stable 126/71 -Pending med recs #Hx of RA -No home meds reported #Hx of cirrhosis -Need to confirm with patient Health Maintenance: Code status: DNR DVT prophylaxis: Heparin GI prophylaxis: Famotidine Diet: Dysphagia 2 Bernardo: yes Lines: PIV Supplemental O2: NC Disposition: Tele bed Assessment and plan discussed with my attending physician Dr. Stock and Dr. Iqbal (PGY-2). Dr. Vasquez (PGY-1) ? vice president of contracts Attending Provider Attestation/Addendum I have discussed and was present for the essential components of the history, physical examination, diagnosis, and treatment plan with the resident. I agree with the patient's care as documented by the resident and amended herein by me. Jacoby Stock DO. Although this document has been carefully reviewed, there may still be some phonetic and other typographical errors. These errors are purely grammatical due to imperfections in the software program and should not be construed in any way to compromise the substance of the patient's medical care during this visit.
--- NOTE | 2025-01-01 14:01 | PC.NURSE ---
Facesheet sent to Dr. Isabel's office via FAX
[2025-01-01 14:32] LABS: Albumin, Serum 2.9 gm/dL (3.4-4.8); Anion Gap 7 (7-16); BUN/Creatinine Ratio 30 Ratio (12-20); Blood Urea Nitrogen 36 mg/dL (9-23); Calcium 8.6 mg/dL (8.3-10.6); Calcium (Corrected) 9.5 mg/dL (8.5-10.1); Carbon Dioxide 22.7 mMol/L (20.0-31.0); Chloride 108 mMol/L (98-107); Creatinine (Component) 1.2 mg/dL (0.6-1.3); Estimated Creatinine Clearance 22.8 mL/min (>60); Glucose 118 mg/dL (74-106); Osmolality,Calculated 284 (275-295); Phosphorous 3.9 mg/dL (2.4-5.1); Potassium 4.7 mMol/L (3.4-5.1); Sodium 138 mMol/L (136-145); eGFR 50 See Note
[2025-01-01] MEDS: ACETAMINOPHEN 325 MG TABLET 650 MG PO (19:37)
[2025-01-02] VITALS (11 sets, daily range): BP systolic 126–149; BP diastolic 68–92; PULSE 63–88; RESP 14–96; TEMP 36.1–36.7; O2SAT 95–99; BMI 16.8
--- NOTE | 2025-01-02 04:52 | ESPR_ITS ---
Subjective Subjective Interval history: asked to see this am but am away so can not see until thursday Exam Vital Signs Temp Pulse Resp BP Pulse Ox O2 Del Method O2 Flow Rate 96.9 F 63 15 126/68 97 Nasal Cannula 1.5 01/02/25 00:00 01/02/25 00:37 01/02/25 00:00 01/02/25 00:00 01/02/25 00:00 01/01/25 20:00 01/01/25 20:00 Objective - Internal Medicine Labs 01/01/25 05:17 01/01/25 13:42 Labs: Laboratory Results - last 24 hr 01/01/25 01/01/25 05:17 13:42 WBC 19.5 H RBC 3.40 L Hgb 10.4 L Hct 32.0 L MCV 94 MCH 30.6 MCHC 32.5 RDW Std Deviation 51.0 H Plt Count 336 Neut % (Auto) 91 H Lymph % (Auto) 3 L [place] % (Auto) 4 Eos % (Auto) 0 Baso % (Auto) 0 Neut # (Auto) 17.8 H Lymph # (Auto) 0.7 L [place] # (Auto) 0.8 Eos # (Auto) 0.0 Baso # (Auto) 0.0 Immature Gran # (Auto) 0.14 H Absolute Nucleated RBC 0.00 Immature Gran % 1 H Nucleated RBC % 0 Sodium 136 138 Potassium 5.2 H 4.7 D Chloride 108 H 108 H Carbon Dioxide 20.5 22.7 Anion Gap 8 7 BUN 41 H 36 H Creatinine 1.4 H 1.2 Estim Creat Clear Calc Not Performed. 22.8 L eGFR 42 L 50 L BUN/Creatinine Ratio 29 H 30 H Glucose 129 H 118 H Calculated Osmolality 284 284 Calcium 9.0 8.6 Corrected Calcium 9.9 9.5 Phosphorus 4.4 3.9 Magnesium 1.6 Total Bilirubin 0.2 L AST 28 ALT 8 L Alkaline Phosphatase 200 H D Total Protein 6.9 Albumin 2.9 L 2.9 L Globulin 4.0 H Albumin/Globulin Ratio 0.7 L ABG Interpretation ABG results: 12/31/24 19:49 ABG pH 7.33 L ABG pCO2 33 ABG pO2 105 ABG HCO3 18 L ABG O2 Saturation 99 H ABG Base Excess -8 L Assessment & Plan A&P Narrative abnormal ua with neg cx so far hx of substance use noted leucocytosis w/o fever Time Spent With Patient Time: Total time spent is greater than 50% in coordination of care (as documented) at patient's floor/unit and/or counseling patient:
[2025-01-02] MEDS: LEVOTHYROXINE SODIUM 25 MCG TABLET PO (05:23)
[2025-01-02 05:54] LABS: Basophils # (Auto) 0.1 Thou/mm3 (0.0-0.2); Basophils % (Auto) 1 % (0-2.5); Eosinophils # (Auto) 0.1 Thou/mm3 (0.0-0.5); Eosinophils % (Auto) 0 % (0-10); Hematocrit 34.7 % (36.0-46.0); Hemoglobin 11.6 g/dL (12.0-16.0); Immature Granulocytes Auto 0.11 Thou/mm3 (0.00-0.00); Lymphocytes # (Auto) 1.5 Thou/mm3 (1.0-4.8); Lymphocytes % (Auto) 10 % (10-50); Mean Corpuscular HGB Conc 33.4 g/dl (31.0-37.0); Mean Corpuscular Hemoglobin 30.9 pg (25.0-35.0); Mean Corpuscular Volume 92 fL (80-100); Monocytes # (Auto) 0.7 Thou/mm3 (0.0-0.8); Monocytes % (Auto) 5 % (0-12); Neutrophils # (Auto) 12.5 Thou/mm3 (1.8-7.7); Neutrophils % (Auto) 84 % (37-80); Nucleated Red Blood Cell # 0.00 Thou/mm3 (0.00-0.00); Nucleated Red Blood Cell % 0 /100 WBC (0); Platelet Count 356 Thou/mm3 (140-440); RDW Standard Deviation 51.1 fL (36.4-46.3); Red Blood Count 3.76 Miln/mm3 (4.00-5.20); White Blood Count 15.0 Thou/mm3 (3.6-11.0)
[2025-01-02 06:19] LABS: Ammonia < 10 uMol/L (11-32)
[2025-01-02] MEDS: RINGERS LACTATED 1000 ML 1,000 ML 75 ML IV (06:23)
[2025-01-02 06:38] LABS: Syphilis Nonreactive (Nonreactive)
[2025-01-02 06:56] LABS: Folate 6.64 ng/mL (>5.38); Hepatitis C Antibody Reactive (Non React); Vitamin B12 584 pg/mL (211-911)
[2025-01-02 07:17] LABS: Alanine Aminotransferase 9 U/L (10-49); Albumin, Serum 2.7 gm/dL (3.4-4.8); Albumin/Globulin Ratio 0.7 (1.2-2.2); Alkaline Phosphatase 179 U/L (46-116); Anion Gap 6 (7-16); Aspartate Amino Transferase 30 U/L (0-34); BUN/Creatinine Ratio 25 Ratio (12-20); Bilirubin,Total < 0.2 mg/dL (0.3-1.2); Blood Urea Nitrogen 25 mg/dL (9-23); Calcium 8.5 mg/dL (8.3-10.6); Calcium (Corrected) 9.5 mg/dL (8.5-10.1); Carbon Dioxide 22.3 mMol/L (20.0-31.0); Chloride 108 mMol/L (98-107); Creatinine (Component) 1.0 mg/dL (0.6-1.3); Estimated Creatinine Clearance 31.3 mL/min (>60); Globulin 4.0 gm/dL (2.3-3.5); Glucose 103 mg/dL (74-106); Magnesium 1.3 mg/dL (1.6-2.6); Osmolality,Calculated 276 (275-295); Phosphorous 3.6 mg/dL (2.4-5.1); Potassium 4.4 mMol/L (3.4-5.1); Sodium 136 mMol/L (136-145); Thyroid Stimulating Hormone 4.72 uIU/mL (0.55-4.78); Total Protein 6.7 gm/dL (5.7-8.2); eGFR > 60 See Note
--- NOTE | 2025-01-02 07:51 | ESPR_ITS ---
<Statement entered by Keara Iqbal MD - 01/03/25 04:54> Patient was seen and examined at bedside. I agree on the assessment and plan on this note as documented by resident Trina Vasquez MD PGY1. 64-year-old female with past medical history as below admitted for emphysematous cystitis VIDAL failure to thrive and community-acquired pneumonia. Patient's status has significantly improved, we will continue ceftriaxone 2 g/day, pending blood cultures. Urology was consulted for emphysematous cystitis, recommends treating infection per urine culture speciation and discharging patient without Bernardo catheter. Will continue low-dose levothyroxine which can be optimized outpatient as per PCP, will continue to monitor patient otherwise stable, hep C viral load ordered, to be followed up with and treated accordingly outpatient. Case discussed with attending Dr. Anupam Stock, DO Keara Iqbal MD PGY-2 Documentation for date of: 01/02/25 Subjective Subjective Interval history: No acute event overnight. WBC improving, currently on Rocephin. VIDAL and hyperkalemia improving. Pending urine culture 12/31 blood culture 12/31 no growth to date. Imaging Echo 01/01 LVEF 65-70% Grade 1 diastolic dysfunction, mild , trace TR. Consulted Urologist, Dr. Bradford, for emphasematous pyelitis and cystitis, appreciate recs. Hep C positive, pending HIV. Patient reported never had treatment for Hep C, diagnosed a few months ago. 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 Per patient, she is currently in the process of work up for liver abnormality, including liver cirrhosis. Patient reported feeling better today. Bernardo bag showed new moderate amount of yellow sediment in urine. Exam Vital Signs Temp Pulse Resp BP Pulse Ox O2 Del Method O2 Flow Rate 96.9 F 77 14 147/82 H 98 Nasal Cannula 1.5 01/02/25 04:00 01/02/25 04:00 01/02/25 04:00 01/02/25 04:00 01/02/25 04:00 01/02/25 04:00 01/02/25 04:00 Narrative Exam GENERAL APPEARANCE: AOx3. Diffusely weak, severe cachectic. HEENT: Normocephalic atraumatic, no facial trauma, neck is supple. Lids/conjunctiva normal. Mucous membranes moist, nares normal, lips/teeth normal uvula midline without oral pharyngeal erythema, exudate or swelling TMs normal bilaterally. No lymphangitis/lymphedema. CARDIAC: tachycardic, S1+S2 heard. Holosystolic murmur at Left 2nd intercostal space RESPIRATORY: respiratory effort normal, speaks in full sentences, no tripod position, no accessory muscle use. Lungs clear to auscultation without rhonchi, wheezes, rales. In 2L NC ABDOMINAL: NBS. Soft, ND/NT. No evidence of fluid wave. No pulsatile masses on exam, rebound tenderness, Wang sign or pain over Mcburney's point. MUSCLES/EXTREMITIES: No abnormal range of motion, no swelling. DERM: Warm, pink and dry. No rashes, dermatoses, petechiae or lesions. NEUROLOGICAL: Speech is clear and appropriate. Normal level of consciousness. Gait and coordination are normal. 5/5 strength in all extremities. PSYCH: Normal mood and affect. Judgement/competence is appropriate Objective Labs 01/02/25 05:25 01/02/25 05:25 Labs: Laboratory Results - last 24 hr 01/01/25 01/02/25 13:42 05:25 WBC 15.0 H RBC 3.76 L Hgb 11.6 L Hct 34.7 L MCV 92 MCH 30.9 MCHC 33.4 RDW Std Deviation 51.1 H Plt Count 356 Neut % (Auto) 84 H Lymph % (Auto) 10 [place] % (Auto) 5 Eos % (Auto) 0 Baso % (Auto) 1 Neut # (Auto) 12.5 H Lymph # (Auto) 1.5 [place] # (Auto) 0.7 Eos # (Auto) 0.1 Baso # (Auto) 0.1 Immature Gran # (Auto) 0.11 H Absolute Nucleated RBC 0.00 Immature Gran % 1 H Nucleated RBC % 0 Sodium 138 136 Potassium 4.7 D 4.4 Chloride 108 H 108 H Carbon Dioxide 22.7 22.3 Anion Gap 7 6 L BUN 36 H 25 H Creatinine 1.2 1.0 Estim Creat Clear Calc 22.8 L 31.3 L eGFR 50 L > 60 BUN/Creatinine Ratio 30 H 25 H Glucose 118 H 103 Calculated Osmolality 284 276 Calcium 8.6 8.5 Corrected Calcium 9.5 9.5 Phosphorus 3.9 3.6 Magnesium 1.3 L Total Bilirubin < 0.2 L AST 30 ALT 9 L Alkaline Phosphatase 179 H D Ammonia < 10 L Total Protein 6.7 Albumin 2.9 L 2.7 L Globulin 4.0 H Albumin/Globulin Ratio 0.7 L Vitamin B12 584 Folate 6.64 TSH 4.72 D Syphilis Serology Nonreactive Hepatitis C Antibody Reactive A ABG Interpretation ABG results: 12/31/24 19:49 ABG pH 7.33 L ABG pCO2 33 ABG pO2 105 ABG HCO3 18 L ABG O2 Saturation 99 H ABG Base Excess -8 L Quality Measures Quality Measures VTE prophylaxis Advance care planning discussed with:: patient Assessment & Plan Assessment Current Active Medications: Generic Name Dose Route Start Last Admin Trade Name Freq PRN Reason Stop Dose Admin Acetaminophen 650 mg 01/01/25 03:47 01/01/25 19:37 Acetaminophen 325 Mg Tablet PO 01/31/25 03:46 650 mg Q6H PRN Administration Fever >100.4 or pain 1-3 Famotidine 20 mg 01/01/25 09:00 01/01/25 20:24 Famotidine Inj 10 Mg/Ml Vial 2 Ml IVP 01/31/25 08:59 20 mg Q12HR ALBERTO Administration Heparin Sodium (Porcine) 5,000 unit 01/01/25 09:00 01/01/25 20:24 Heparin Sod Inj 5000 Unit/Ml Vial SC 01/15/25 08:59 5,000 unit Q12HR ALBERTO Administration Lactated Ringer's 1,000 mls @ 75 mls/hr 01/01/25 04:00 01/02/25 06:23 Lactated Ringers IV 01/31/25 03:59 75 mls/hr .[id number] ALBERTO Administration Ceftriaxone Sodium 2 gm/ 50 mls @ 100 mls/hr 01/02/25 09:00 Sodium Chloride IV 01/08/25 08:59 QDAY ALBERTO Magnesium Sulfate 4 gm in 50 mls @ 12.5 mls/hr 01/02/25 07:47 Magnesium Sulfate Ivpb IV 01/02/25 11:46 X1 ONE Levothyroxine Sodium 25 mcg 01/01/25 10:40 01/02/25 05:23 Levothyroxine Sodium 25 Mcg Tablet PO 01/31/25 10:39 25 mcg ACBR ALBERTO Administration Magnesium Oxide 400 mg 01/02/25 09:00 Magnesium Oxide 400 Mg Tablet PO 02/01/25 08:59 QDAY ALBERTO Ondansetron HCl 4 mg 01/01/25 03:47 Ondansetron Inj 2 Mg/Ml Inj 2 Ml IVP 01/31/25 03:46 Q6H PRN NAUSEA OR VOMITING Protocol Sennosides 2 tab 01/01/25 10:39 Senna/Docusate Sod 1 Tab Tablet PO 01/31/25 10:38 QDAY PRN CONSTIPATION Protocol Thiamine HCl 100 mg 01/01/25 09:00 01/01/25 09:16 Thiamine 100 Mg Tablet PO 01/31/25 08:59 100 mg QDAY ALBERTO Administration Plan 64 year old female with PMHx Cirrhosis, Malnutrition, Hypertension, Rheumatoid Arthritis, Diabetes Mellitus Type 2, Recreational Drug Use, and Anxiety who presented to the ED BIBA due to failure to thrive. Patient admitted for failure to thrive found to have UTI, pneumonia, emphysematous cystitis and bilateral pyelonephritis #Emphysematous pyelitis & cystitis #VIDAL - improved UA bacteria and yeast. Imaging shows air in the bladder and collecting ducts. Patient family confirms no invasive procedures, will treat with IV abx. Initial BUN 41 Cr 1.4 WBC 20.8. Fluids given in ED, clindamycin and levofloxacin in ED. Plan: -Ceftriaxone 2g IV QD (01/02-01/08) -Discontinue LR 75cc/hr -Consult Urologist, Dr. Bradford, appreciate recs #Community Acquired pneumonia likely 2/2 to gm+/gm- bacteria Plan: -Continue ctx #Failure to thrive #Severe protein calorie malnutrition #Electrolyte abnormalities - improving #Hyperkalemia - improving Patient had very poor PO intake. Is severely cachectic. Admitted to having poor appetite but mentioned have not always been this skinny . BMI 14.7. Na 125 K 6.8 improved to 5.2 status post Kayexalate in the ED Plan: -Dietitian consulted -Thiamine QD -Continue LR 75cc/hr -Monitor renal panel #Hepatitis C Hep C positive. Patient reported never had treatment for Hep C, diagnosed a few months ago. 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 Per patient, she is currently in the process of work up for liver abnormality, including liver cirrhosis. LFT 01/02 showed AST 30 ALT 9 Alphos 179. Plan: -Consider Hepatitis C viral load panel outpatient- unavailable at facility at this time -Avoid hepatotoxic agents -Follow up outpatient for full workup and treatment #Hyperkalemia-Improved Plan: -CTM #Hyporthyroid TSH 9.19 T4 0.67 Plan: -Continue Levothyroxine 25mg PO #Hx of T2DM Plan: -ISS #Hx of HTN -Blood pressure is currently stable 126/71 -Pending med recs #Hx of RA -No home meds reported #Hx of cirrhosis -Need to confirm with patient Health Maintenance: Code status: DNR DVT prophylaxis: Heparin GI prophylaxis: Famotidine Diet: Dysphagia 2 Bernardo: yes Lines: PIV Supplemental O2: NC Disposition: Tele bed Assessment and plan discussed with my attending physician Dr. Stock and Dr. Iqbal (PGY-2). Dr. Vasquez (PGY-1) ? 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 I agree with the patient's care as documented by the resident and amended herein by me. Jacoby Stock DO. Although this document has been carefully reviewed, there may still be some phonetic and other typographical errors. These errors are purely grammatical due to imperfections in the software program and should not be construed in any way to compromise the substance of the patient's medical care during this visit. Patient seen and evaluated this AM. No acute events overnight, vital signs stable, patient afebrile, patient initially admitted for UTI with associated emphysematous cystitis, VIDAL, failure to thrive and community-acquired pneumonia. She is really improved, significant labs today including a downtrending WBC to 15 today, hemoglobin stable 11.6, and creatinine at 1.0. Patient does have hepatitis C antibody positive we will obtain a viral load. Echo demonstrated an EF of 60 to 65% with grade 1 diastolic dysfunction. Blood cultures NGTD, urine culture pending, urology was also consulted for this patient considering the emphysematous cystitis, appreciate recommendations. For now we will continu ceftriaxone, the patient was also started on levothyroxine 25 mg daily due to a low T4 which may just be ESS, she will need close follow-up in the outpatient setting for medication adjustment or discontinuance. Dietitian consulted for protein calorie malnutrition, appreciate recommendations however patient is tolerating her diet and is hungry. No need for appetite stimulant at this time. Patient is from SNF and she will likely return there, overall much improved, the patient was pleasant at time of bedside visit states she feels improved, likely DC back to SNF in 1 to 2 days pending specialist recommendations and continued clinical improvement.
[2025-01-02] MEDS: cefTRIAXone 2 GM in SODIUM CHLORIDE 0.9% (Popper) 50 ML IV (08:09)
[2025-01-02] MEDS: HEPARIN SOD INJ 5000 UNIT/ML VIAL SC ×2 (08:56→20:55)
[2025-01-02] MEDS: FAMOTIDINE INJ 10 MG/ML VIAL 2 ML 20 MG IVP ×2 (08:56→21:09)
[2025-01-02] MEDS: MAGNESIUM OXIDE 400 MG TABLET PO (08:56)
[2025-01-02] MEDS: Magnesium Sulfate 4 GM Ivpb 4 GM/50 ML BAG IV (08:56)
[2025-01-02] MEDS: THIAMINE 100 MG TABLET PO (08:56)
[2025-01-02 10:04] LABS: HIV (1&2) Antibody Rapid Non-Reactive
--- NOTE | 2025-01-02 10:44 | PC.DIETICIAN ---
Nutrition recommendations: Patient meets ASPEN criteria for Severe chronic disease or condition related malnutrition. 1. Dys Mech Altered, Cardiac. Glucerna Shake 120ml TID with meals. 2. Continue with Thiamine 100mg/d. 3. Multivitamins/Minerals. 4. Daily labs for P, K, and Mg; replace as needed.
[2025-01-02] MEDS: MULTIVITAMINS TABLET 1 TAB PO (10:57)
[2025-01-02] MEDS: GABAPENTIN 300 MG CAPSULE PO ×2 (10:57→20:55)
--- NOTE | 2025-01-02 11:01 | PCS.ST ---
Swallow Evaluation completed. See report for details. No s/s of pharyngeal dysphagia. Continue current diet.
--- NOTE | 2025-01-02 11:17 | PC.SS ---
rounding note: Patient on i.v. antibiotics. Urology consult
--- NOTE | 2025-01-02 12:30 | PC.PT ---
Patient is safe to ambulate to the bathroom and in the halls with a FWW and 1 staff assist. RN made aware.
[2025-01-02] MEDS: ACETAMINOPHEN 325 MG TABLET 650 MG PO (17:55)
[2025-01-03] VITALS (7 sets, daily range): BP systolic 101–159; BP diastolic 52–94; PULSE 56–81; RESP 14–98; TEMP 36.2–36.6; O2SAT 94–97; BMI 17.0
[2025-01-03] MEDS: LEVOTHYROXINE SODIUM 25 MCG TABLET PO (05:19)
[2025-01-03 06:13] LABS: Basophils # (Auto) 0.1 Thou/mm3 (0.0-0.2); Basophils % (Auto) 0 % (0-2.5); Eosinophils # (Auto) 0.1 Thou/mm3 (0.0-0.5); Eosinophils % (Auto) 1 % (0-10); Hematocrit 33.6 % (36.0-46.0); Hemoglobin 11.3 g/dL (12.0-16.0); Immature Granulocytes Auto 0.06 Thou/mm3 (0.00-0.00); Lymphocytes # (Auto) 2.8 Thou/mm3 (1.0-4.8); Lymphocytes % (Auto) 21 % (10-50); Mean Corpuscular HGB Conc 33.6 g/dl (31.0-37.0); Mean Corpuscular Hemoglobin 30.7 pg (25.0-35.0); Mean Corpuscular Volume 91 fL (80-100); Monocytes # (Auto) 0.6 Thou/mm3 (0.0-0.8); Monocytes % (Auto) 5 % (0-12); Neutrophils # (Auto) 9.3 Thou/mm3 (1.8-7.7); Neutrophils % (Auto) 72 % (37-80); Nucleated Red Blood Cell # 0.00 Thou/mm3 (0.00-0.00); Nucleated Red Blood Cell % 0 /100 WBC (0); Platelet Count 374 Thou/mm3 (140-440); RDW Standard Deviation 49.9 fL (36.4-46.3); Red Blood Count 3.68 Miln/mm3 (4.00-5.20); White Blood Count 12.9 Thou/mm3 (3.6-11.0)
[2025-01-03 06:26] LABS: Alanine Aminotransferase 10 U/L (10-49); Albumin, Serum 2.6 gm/dL (3.4-4.8); Albumin/Globulin Ratio 0.7 (1.2-2.2); Alkaline Phosphatase 199 U/L (46-116); Anion Gap 5 (7-16); Aspartate Amino Transferase 29 U/L (0-34); BUN/Creatinine Ratio 27 Ratio (12-20); Bilirubin,Total < 0.2 mg/dL (0.3-1.2); Blood Urea Nitrogen 24 mg/dL (9-23); Calcium 8.1 mg/dL (8.3-10.6); Calcium (Corrected) 9.2 mg/dL (8.5-10.1); Carbon Dioxide 24.6 mMol/L (20.0-31.0); Cardiac Risk Estimate 3.5 RATIO (3.7-5.6); Chloride 104 mMol/L (98-107); Cholesterol 77 mg/dL (132-200); Creatinine (Component) 0.9 mg/dL (0.6-1.3); Estimated Creatinine Clearance 35.3 mL/min (>60); Globulin 3.6 gm/dL (2.3-3.5); Glucose 194 mg/dL (74-106); HDL Cholesterol 22 mg/dL (40-60); LDL Cholesterol,Calculated 26 mg/dL (0-130); Magnesium 1.8 mg/dL (1.6-2.6); Osmolality,Calculated 277 (275-295); Phosphorous 2.2 mg/dL (2.4-5.1); Potassium 4.4 mMol/L (3.4-5.1); Sodium 134 mMol/L (136-145); Total Protein 6.2 gm/dL (5.7-8.2); Triglycerides 147 mg/dL (30-150); eGFR > 60 See Note
[2025-01-03 06:29] LABS: Glucose Estimated Average 105 mg/dL (80-131); Hemoglobin A1C 5.3 % Hgb (4.8-6.0)
--- NOTE | 2025-01-03 08:16 | PD.RESPRO ---
Documentation for date of: 01/03/25 Subjective Subjective Interval history: No acute event overnight. Blood culture and urine culture 12/31 negative. Currently still on ceftriaxone for UTI. Patient has 7 bowel movement of soft brown/green yesterday. Bradycardic 56, baseline low 80s to low 60. Neurologist, Dr. Bradford, consulted for emphysematous cystitis and bilateral pyelonephritis, appreciate recs: Treat according to urine culture, discharged with a Bernardo. Exam Vital Signs Temp Pulse Resp BP Pulse Ox O2 Del Method O2 Flow Rate 97.4 F 67 20 159/94 H 96 Room Air 1.5 01/03/25 08:00 01/03/25 08:00 01/03/25 08:00 01/03/25 08:00 01/03/25 08:00 01/03/25 08:00 01/02/25 07:51 Narrative Exam GENERAL APPEARANCE: AOx3. Diffusely weak, severe cachectic. HEENT: Normocephalic atraumatic, no facial trauma, neck is supple. Lids/conjunctiva normal. Mucous membranes moist, nares normal, lips/teeth normal uvula midline without oral pharyngeal erythema, exudate or swelling TMs normal bilaterally. No lymphangitis/lymphedema. CARDIAC: tachycardic, S1+S2 heard. Holosystolic murmur at Left 2nd intercostal space RESPIRATORY: respiratory effort normal, speaks in full sentences, no tripod position, no accessory muscle use. Lungs clear to auscultation without rhonchi, wheezes, rales. In 2L NC ABDOMINAL: NBS. Soft, ND/NT. No evidence of fluid wave. No pulsatile masses on exam, rebound tenderness, Wang sign or pain over Mcburney's point. MUSCLES/EXTREMITIES: No abnormal range of motion, no swelling. DERM: Warm, pink and dry. No rashes, dermatoses, petechiae or lesions. NEUROLOGICAL: Speech is clear and appropriate. Normal level of consciousness. Gait and coordination are normal. 5/5 strength in all extremities. PSYCH: Normal mood and affect. Judgement/competence is appropriate Objective Labs 01/03/25 05:24 01/03/25 05:24 Labs: Laboratory Results - last 24 hr 01/02/25 01/03/25 05:25 05:24 WBC 12.9 H RBC 3.68 L Hgb 11.3 L Hct 33.6 L MCV 91 MCH 30.7 MCHC 33.6 RDW Std Deviation 49.9 H Plt Count 374 Neut % (Auto) 72 Lymph % (Auto) 21 [place] % (Auto) 5 Eos % (Auto) 1 Baso % (Auto) 0 Neut # (Auto) 9.3 H Lymph # (Auto) 2.8 [place] # (Auto) 0.6 Eos # (Auto) 0.1 Baso # (Auto) 0.1 Immature Gran # (Auto) 0.06 H Absolute Nucleated RBC 0.00 Immature Gran % 1 H Nucleated RBC % 0 Sodium 134 L Potassium 4.4 Chloride 104 Carbon Dioxide 24.6 Anion Gap 5 L BUN 24 H Creatinine 0.9 Estim Creat Clear Calc 35.3 L eGFR > 60 BUN/Creatinine Ratio 27 H Glucose [address] Glu mg/dL 105 Hemoglobin A1c 5.3 Calculated Osmolality 277 Calcium 8.1 L Corrected Calcium 9.2 Phosphorus 2.2 L Magnesium 1.8 Total Bilirubin < 0.2 L AST 29 ALT 10 Alkaline Phosphatase 199 H D Total Protein 6.2 Albumin 2.6 L Globulin 3.6 H Albumin/Globulin Ratio 0.7 L Triglycerides 147 Cholesterol 77 L LDL Cholesterol, Calc 26 HDL Cholesterol 22 L Cholesterol/HDL Ratio 3.5 L HIV 1&2 Antibody Rapid Non-Reactive ABG Interpretation ABG results: 12/31/24 19:49 ABG pH 7.33 L ABG pCO2 33 ABG pO2 105 ABG HCO3 18 L ABG O2 Saturation 99 H ABG Base Excess -8 L Quality Measures Quality Measures VTE prophylaxis Assessment & Plan Assessment Current Active Medications: Generic Name Dose Route Start Last Admin Trade Name Tonie PRN Reason Stop Dose Admin Acetaminophen 650 mg 01/01/25 03:47 01/02/25 17:55 Acetaminophen 325 Mg Tablet PO 01/31/25 03:46 650 mg Q6H PRN Administration Fever >100.4 or pain 1-3 Dextrose 25 ml 01/03/25 00:51 Dextrose 50%-Water Inj 50 Ml Syringe IV 02/02/25 00:50 Q15MIN PRN BG 50-70 responsive npo pt Dextrose 50 ml 01/03/25 00:51 Dextrose 50%-Water Inj 50 Ml Syringe IV 02/02/25 00:50 Q15MIN PRN BG <50 OR BG <70 & pt unresponsive Famotidine 20 mg 01/01/25 09:00 01/02/25 21:09 Famotidine Inj 10 Mg/Ml Vial 2 Ml IVP 01/31/25 08:59 20 mg Q12HR ALBERTO Administration Gabapentin 300 mg 01/02/25 10:30 01/02/25 20:55 Gabapentin 300 Mg Capsule PO 02/01/25 10:29 300 mg BID ALBERTO Administration Glucagon 1 mg 01/03/25 00:51 Glucagon Inj 1 Mg Vial IM Q15MIN PRN BG <70, and no IV access Heparin Sodium (Porcine) 5,000 unit 01/01/25 09:00 01/02/25 20:55 Heparin Sod Inj 5000 Unit/Ml Vial SC 01/15/25 08:59 5,000 unit Q12HR ALBERTO Administration Ceftriaxone Sodium 2 gm/ 50 mls @ 100 mls/hr 01/02/25 09:00 01/02/25 08:09 Sodium Chloride IV 01/08/25 08:59 100 mls/hr QDAY ALBERTO Administration Insulin Human Lispro 0 unit 01/03/25 07:30 Insulin Lispro (Admelog) 1 Unit/0.01 Ml Unit SC 02/02/25 07:29 ACHS ALBERTO Protocol Levothyroxine Sodium 25 mcg 01/01/25 10:40 01/03/25 05:19 Levothyroxine Sodium 25 Mcg Tablet PO 01/31/25 10:39 25 mcg ACBR ALBERTO Administration Lisinopril 5 mg 01/03/25 09:00 Lisinopril 2.5 Mg Tablet PO 02/02/25 08:59 QDAY ALBERTO Magnesium Oxide 400 mg 01/02/25 09:00 01/02/25 08:56 Magnesium Oxide 400 Mg Tablet PO 02/01/25 08:59 400 mg QDAY ALBERTO Administration Multivitamins 1 tab 01/02/25 10:30 01/02/25 10:57 Multivitamins Tablet PO 02/01/25 10:29 1 tab QDAY ALBERTO Administration Ondansetron HCl 4 mg 01/01/25 03:47 Ondansetron Inj 2 Mg/Ml Inj 2 Ml IVP 01/31/25 03:46 Q6H PRN NAUSEA OR VOMITING Protocol Potassium Phos/Sodium Phos 2 packet 01/03/25 08:07 [facility]aph,[facility] Mbdb 1 Packet (1.5 Gm) PO 01/03/25 08:08 X1 ONE Sennosides 2 tab 01/01/25 10:39 Senna/Docusate Sod 1 Tab Tablet PO 01/31/25 10:38 QDAY PRN CONSTIPATION Protocol Thiamine HCl 100 mg 01/01/25 09:00 01/02/25 08:56 Thiamine 100 Mg Tablet PO 01/31/25 08:59 100 mg QDAY ALBERTO Administration Plan 64 year old female with PMHx Cirrhosis, Malnutrition, Hypertension, Rheumatoid Arthritis, Diabetes Mellitus Type 2, Recreational Drug Use, and Anxiety who presented to the ED BIBA due to failure to thrive. Patient admitted for failure to thrive found to have UTI, pneumonia, emphysematous cystitis and bilateral pyelonephritis #Emphysematous pyelitis & cystitis #VIDAL - improved UA bacteria and yeast. Imaging shows air in the bladder and collecting ducts. Patient family confirms no invasive procedures, will treat with IV abx. Initial BUN 41 Cr 1.4 WBC 20.8. Fluids given in ED, clindamycin and levofloxacin in ED. Plan: -Ceftriaxone 2g IV QD (01/02-01/08) -Consult Urologist, Dr. Bradford, appreciate recs: Treat according to urine culture, discharged without Bernardo #Community Acquired pneumonia likely 2/2 to gm+/gm- bacteria Plan: -Continue ctx #Failure to thrive #Severe protein calorie malnutrition #Electrolyte abnormalities - improving #Hyperkalemia - improving Patient had very poor PO intake. Is severely cachectic. Admitted to having poor appetite but mentioned have not always been this skinny . BMI 14.7. Na 125 K 6.8 improved to 5.2 status post Kayexalate in the ED Plan: -Dietitian consulted -Thiamine QD -Continue LR 75cc/hr -Monitor renal panel #Hepatitis C Hep C positive. Patient reported never had treatment for Hep C, diagnosed a few months ago. 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 Per patient, she is currently in the process of work up for liver abnormality, including liver cirrhosis. LFT 01/02 showed AST 30 ALT 9 Alphos 179. Plan: -Consider Hepatitis C viral load panel outpatient- unavailable at facility at this time -Avoid hepatotoxic agents -Follow up outpatient for full workup and treatment #Hyperkalemia-Improved Plan: -CTM #Hyporthyroid TSH 9.19 T4 0.67 Plan: -Continue Levothyroxine 25mg PO #Hx of T2DM Plan: -ISS #Hx of HTN -Blood pressure is currently stable 126/71 -Pending med recs #Hx of RA -No home meds reported #Hx of cirrhosis -Need to confirm with patient Health Maintenance: Code status: DNR DVT prophylaxis: Heparin GI prophylaxis: Famotidine Diet: Dysphagia 2 Bernardo: yes Lines: PIV Supplemental O2: NC Disposition: Tele bed Assessment and plan discussed with my attending physician Dr. Stock and Dr. Carey (PGY-2). Dr. Vasquez (PGY-1) ? 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
[2025-01-03] MEDS: HEPARIN SOD INJ 5000 UNIT/ML VIAL SC (08:43)
[2025-01-03] MEDS: NAPH,KPH MBDB 1 PACKET (1.5 GM) 2 PACKET PO (08:44)
[2025-01-03] MEDS: cefTRIAXone 2 GM in SODIUM CHLORIDE 0.9% (Popper) 50 ML IV (08:44)
[2025-01-03] MEDS: GABAPENTIN 300 MG CAPSULE PO (08:44)
[2025-01-03] MEDS: INSULIN LISPRO (AdmeLOG) 1 UNIT/0.01 ML UNIT SC (08:44)
[2025-01-03] MEDS: MULTIVITAMINS TABLET 1 TAB PO (08:47)
[2025-01-03] MEDS: MAGNESIUM OXIDE 400 MG TABLET PO (08:47)
[2025-01-03] MEDS: FAMOTIDINE INJ 10 MG/ML VIAL 2 ML 20 MG IVP (08:48)
[2025-01-03] MEDS: THIAMINE 100 MG TABLET PO (08:56)
--- NOTE | 2025-01-03 11:39 | PC.SS ---
Updated clinicals submitted to [facility] via [facility].
--- NOTE | 2025-01-03 13:46 | ESDS_ITS ---
<Statement entered by Yusuf Carey MD - 01/03/25 15:12> Patient seen and examined at bedside. I discussed and supervised with the development intern physician who took care of this patient. I personally saw and examined the patient. I agree with most of the assessment and plan. Plan of care discussed with attending Dr. Abbott. Yusuf Carey MD PGY-2 Planned Discharge Date 01/03/25 DS: Providers Provider Date of admission: 01/01/25 03:47 Primary care physician: Physician No Primary/Family Admitting Provider: Jacobo Ponce MD Attending Provider on Admission: Anupam Stock DO Consults: 01/01/25 03:50 Consult to Infectious Diseases Stat Comment: Emphysematous pyelitis Consulting Provider: Reginaldo Gupta 01/01/25 07:58 Referral Registered Dietitian Routine Comment: 01/01/25 08:28 Referral Speech Therapy Routine Comment: Dysphagia Eval. 01/01/25 12:25 Referral Registered Dietitian Routine Comment: Health Equity Referral - Knowledge Deficit Routine Comment: Positive screening for knowledge deficit needs. 01/01/25 12:31 Consult to Urology Urgent Comment: Emphysematous Cystitis Consulting Provider: Jonathan Bradford 01/02/25 10:25 Referral Physical Therapy Routine Comment: Physician Instructions: Attending Provider on DC: Taylor Abbott MD Discharging Provider: Trina Vasquez MD DS: Diagnosis Problem List Completed Was Problem List Reviewed/Reconciled?: Yes Hospital Course Hospital Course Hospital course: 64 years old female past medical history of cirrhosis, hep C positive, hypothyroidism, malnutrition, hypertension, rheumatoid arthritis, type 2 diabetes, recreational drug use, anxiety, [facility] from [facility] due to failure to thrive. Admitted for failure to thrive, VIDAL, UTI, community-acquired pneumonia, emphysematous cystitis and bilateral pyelonephritis. In ED, AOx1,WBC 20.8, Na 126 K 6.8, Creatinine 1.6, improved with kayexalate, IVF and Rocephin. In hospital, AOx4. VIDAL resolved with fluid. Hyperkalemia resolved with Kayexalate. Urologist, Dr. Bradford, consulted and recommended treating according to urine culture, discharged without Bernardo. UTI and pneumonia improved with Rocephin. Urine culture grew E. coli sensitive to Rocephin. Patient was started on levothyroxine 25 mg daily for new finding of hypothyroidism. Patient is already in the workup for hepatitis C and liver cirrhosis outpatient. Patient stable and medically clear for discharge. Will finish antibiotic course in [facility]. Advised patient to continue following up outpatient for the workup of hepatitis and liver cirrhosis. #Emphysematous pyelitis & cystitis #VIDAL - improved #Community Acquired pneumonia likely 2/2 to gm+/gm- bacteria #Failure to thrive #Severe protein calorie malnutrition #Electrolyte abnormalities - improving #Hyperkalemia - improving #Hepatitis C #Hyperkalemia-Improved #Hyporthyroid #Hx of T2DM #Hx of HTN #Hx of RA #Hx of cirrhosis Instruction: You have been started on the following medications: - Levofloxacin 750 mg once daily for 5 more days - Levothyroxine 25 mcg once daily The following changes to your medication have been made: - Gabapentin has been reduced to 300 mg twice daily Please continue taking all other medications as previously prescribed. Please follow up with your primary doctor in 7-10 days. If you do not have a primary doctor, please visit the [facility]: - [address], [address], [place] [address] Return to the ED if you develop new or worsening symptoms. Assessment and plan discussed with my attending physician Dr. Abbott and Dr. Carey (PGY-2). Dr. Vasquez (PGY-1) ? manager residential Status at Discharge Overall status at discharge: patient is back to baseline Time Spent with Patient Time attestation: Total time spent providing and/or coordinating discharge services: 36 minutes Time spent: Greater than 30 minutes Exam Vital Signs Temp Pulse Resp BP Pulse Ox O2 Del Method O2 Flow Rate 97.1 F 76 19 153/94 H 97 Room Air 2 01/03/25 12:00 01/03/25 12:00 01/03/25 12:00 01/03/25 12:00 01/03/25 12:00 01/03/25 12:00 01/03/25 09:00 Narrative Exam GENERAL APPEARANCE: AOx3. Diffusely weak, severe cachectic. HEENT: Normocephalic atraumatic, no facial trauma, neck is supple. Lids/conjunctiva normal. Mucous membranes moist, nares normal, lips/teeth normal uvula midline without oral pharyngeal erythema, exudate or swelling TMs normal bilaterally. No lymphangitis/lymphedema. CARDIAC: tachycardic, S1+S2 heard. Holosystolic murmur at Left 2nd intercostal space RESPIRATORY: respiratory effort normal, speaks in full sentences, no tripod position, no accessory muscle use. Lungs clear to auscultation without rhonchi, wheezes, rales. In 2L NC ABDOMINAL: NBS. Soft, ND/NT. No evidence of fluid wave. No pulsatile masses on exam, rebound tenderness, Wang sign or pain over Mcburney's point. MUSCLES/EXTREMITIES: No abnormal range of motion, no swelling. DERM: Warm, pink and dry. No rashes, dermatoses, petechiae or lesions. NEUROLOGICAL: Speech is clear and appropriate. Normal level of consciousness. Gait and coordination are normal. 5/5 strength in all extremities. PSYCH: Normal mood and affect. Judgement/competence is appropriate Discharge Plan Plan Patient Disposition: Xfer Skilled Nsg Fac (SNF) Patient condition on transfer: Stable Care Plan Goals: You have been started on the following medications: - Levofloxacin 750 mg once daily for 5 more days - Levothyroxine 25 mcg once daily The following changes to your medication have been made: - Gabapentin has been reduced to 300 mg twice daily Please continue taking all other medications as previously prescribed. Please follow up with your primary doctor in 7-10 days. If you do not have a primary doctor, please visit the [facility]: - [address], [address], [place] [address] Return to the ED if you develop new or worsening symptoms. Prescriptions/Referrals Prescriptions/Med Rec: New gabapentin 300 mg Capsule 300 mg PO BID 30 Days Qty: 60 2RF levothyroxine 25 mcg Tablet 25 mcg PO QDAY 30 Days Qty: 30 2RF levofloxacin 750 mg tablet 750 mg PO QDAY Qty: 5 0RF Continued oxybutynin chloride 5 mg tablet 5 mg PO QDAY Janumet 50-1,000 mg tablet 1 tab PO BID tramadol 50 mg tablet 50 mg PO Q6H Jardiance 25 mg tablet 25 mg PO QDAY ergocalciferol (vitamin D2) 1,250 mcg (50,000 unit) capsule 1,250 mcg PO QDAY lisinopril 5 mg tablet 5 mg PO QDAY omeprazole 20 mg capsule,delayed release(DR/EC) 20 mg PO QDAY cetirizine 10 mg tablet 10 mg PO QDAY baclofen 10 mg tablet 10 mg PO QDAY Discontinued gabapentin 600 mg tablet 600 mg PO BID Referrals: No Primary/Family,Physician [Primary Care Provider] Patient/Caregiver Discharge Instructions Discharge Activity: activity as tolerated Education Materials: Urinary Tract Infections in Women, Understanding Urinary Tract ..., Dehydration, ED CYSTITIS Female Adult Print Language: Gabonese Stand Alone Forms: Emi Award Info., Patient Portal Info Letter Discharge Order Discharge Orders: Discharge (Routine); Ordered 01/03/25 Ordered By: Yusuf Carey Quality Discharge Quality Measures VTE prophylaxis Attestestation MD Attestation I have seen and examined the patient. I was physically present for the lieberman portions of the services provided including history, physical exam, diagnosis, treatment plans and orders. I agree with assessment and plan of care as documented by residents. Even though this this note was carefully revised there may still be minor errors in fish processing supervisor due to voice recognition software. Taylor Abbott MD
--- NOTE | 2025-01-03 13:46 | PC.SS ---
Ambulance transport scheduled for 03:00 pm today. [employer] MEMBER notified bedside nurse, patient and SNF.
--- NOTE | 2025-01-03 15:06 | PC.SS ---
HOSE STRIPPER conducted bedside contact with the patient conduct initial assessment and to discuss discharge planning.? Patient confirmed demographic information.? Patient is a resident of [facility]. ?Patient utilizes a walker to assist with ambulation.? Patient does not utilize oxygen.? Currently on 2L oxygen.? Patient requires assistance with completion of ADL?s.? Patient identified brother, Alcides De Jesus ; as surrogate medical decision maker.? Patient utilizes facility PCP for medical services.? Plan is for the patient to SNF at the time of discharge. ?student services dean to arrange transportation on behalf of the patient. No further discharge needs identified by the patient.? No further intervention required at this time, social insurance administrator will be available to address any further concerns.? Next of Kin: Alcides De Jesus D/C Plan: [facility]
--- NOTE | 2025-01-04 13:03 | ESCONSULT_ITS ---
RE: ROBERTH BOYCE : 1960 DATE OF CONSULTATION: 01/02/2025 The patient is seen, chart is reviewed, consult is dictated mostly information obtained by me is from the patient's chart. RN on the floor was with me during the history and physical taking and examination of the patient. CHIEF COMPLAINT: Recurrent urinary tract infection. HISTORY OF PRESENT ILLNESS: This is a 64-year-old female. She has past medical history of: 1. Cirrhosis. 2. Hypertension. 3. Rheumatoid arthritis. 4. Diabetes mellitus type 2. 5. Malnutrition. 6. Recreational drug use and anxiety. She went to the emergency room with the history of frequency, urgency, burning of urination, and failure to thrive and had emphysematous pyelitis. She has no history of gross hematuria and denied any fever, nausea, or vomiting. In the emergency room, her blood pressure is 100/67, heart rate 18, temperature 99.6, O2 saturation 97%. WBC 20.8, hemoglobin 10.9. Serum creatinine is 1.6, BUN is 38. The patient was started on insulin regular, sodium bicarb, calcium chloride, normal saline, levoflox, and clindamycin. The patient had placement of Bernardo catheter. The patient had history of urinary tract infection and she has grown E. coli and Strep agalactiae in the urine. The patient's brother confirmed that the patient does not want to have invasive procedure. PAST MEDICAL HISTORY, FAMILY HISTORY, REVIEW OF THE SYSTEM, PERSONAL HISTORY: Please refer to patient history form dated 01/01/2025. PHYSICAL EXAMINATION: GENERAL: Condition is satisfactory. The patient is not in acute distress. She is cachectic and diffusely weak. HEENT: Normocephalic, atraumatic. NECK: No neck lymphadenopathy, trachea central. CHEST: Symmetrical. HEART: Regular rate and rhythm. ABDOMEN: No masses. GENITOURINARY: She has indwelling Bernardo catheter. ASSESSMENT AND PLAN: This is a 64-year-old female. She has history of urinary tract infection and she has emphysematous cystitis. She is failure to thrive. RECOMMENDATION: 1. Urine for culture sensitivity. 2. Treat UTI according to the culture sensitivity. 3. The patient at this time does not need any invasive procedure. 4. Once she is stable and her urine does not show any more infection, catheter can be removed and she can be given trial of voiding. DT: 16:40:30 TT: 19:56:00 Ref: [id number] - TID: [id number] MTDD
[2025-01-07 23:35] LABS: HCV RNA, PCR 6450000 IU/mL
[2025-01-09 07:05] LABS: HCV RNA, PCR Log IU 6.81 Log IU/mL
[2025-01-11 06:26] LABS: HCV Genotype, LiPA(R)* 3
== END 2025-01-03 15:08 | disposition skilled nursing facility (03) | DRG 689 ==
LOC: SERX 01-01 → SERHOLD 01-01 04:58 → S2NX 01-01 08:15
PROVIDERS: Internal Medicine Infectious Disease; Emergency Provider Emergency Medicine; Visit Provider Student in an Organized Health Care Education/Training Program
DX: N12 Tubulo-interstitial nephritis, not specified as acute or chronic (principal); E43 Unspecified severe protein-calorie malnutrition; J69.0 Pneumonitis due to inhalation of food and vomit; R64 Cachexia; Z68.1 Body mass index [BMI] 19.9 or less, adult; Z16.29 Resistance to other single specified antibiotic; E87.20 Acidosis, unspecified; Z66 Do not resuscitate; N17.9 Acute kidney failure, unspecified; E11.9 Type 2 diabetes mellitus without complications; I10 Essential (primary) hypertension; M06.9 Rheumatoid arthritis, unspecified; K74.60 Unspecified cirrhosis of liver; F41.9 Anxiety disorder, unspecified; E03.9 Hypothyroidism, unspecified; R62.7 Adult failure to thrive; B96.20 Unspecified Escherichia coli [E. coli] as the cause of diseases classified elsewhere; N30.80 Other cystitis without hematuria; D64.9 Anemia, unspecified; E05.90 Thyrotoxicosis, unspecified without thyrotoxic crisis or storm; B19.20 Unspecified viral hepatitis C without hepatic coma; E87.5 Hyperkalemia; Z51.5 Encounter for palliative care; Z79.84 Long term (current) use of oral hypoglycemic drugs; Z87.440 Personal history of urinary (tract) infections; Z88.0 Allergy status to penicillin
CPT/HCPCS: 36415; 36600; 51701; 51702; 70450; 71045; 74176; 80053; 80061; 80069; 80307; 80320; 80329; 81001; 82140; 82607; 82746; 82803; 83036; 83605; 83735; 84100; 84439; 84443; 84484; 85025; 85610; 85730; 86703; 86780; 86803; 87040; 87077; 87081; 87086; 87186; 87522; 87635; 87902; 92610; 93005; 93306; 94640; 96361; 96365; 96366; 96375; 97162; 99291; 99292; A4314; J0696; J0736; J1644; J1815; J1956; J3411; J3475; J3490; J7030; J7050; J7120; J7999; A9270; G0480